=== PATIENT | female | born 1935 | race Caucasian/White ===

== ENCOUNTER 2016-11-09 09:54 | Inpatient (IN) | payer MEDICARE, OTHER ==
--- NOTE | 2016-11-09 10:36 | ED ---
Syncope HPI - General Chief Complaint: Syncope Stated Complaint: Syncope Time Seen by Provider: 11/09/16 10:08 Source: patient, RN/MD Mode of arrival: EMS Limitations: no limitations - History of Present Illness Initial Comments: Patient is an 81-year-old female with history of dementia, hypertension, hyperlipidemia presenting with syncope and collapse. Patient is unable to provide HPI and states patient is at baseline. states that around 8:30 the got up and they were in the bathroom cleaning up for the day. was assisting by the waist to wash her face. He noticed she started to become unresponsive and noticed more weight he was holding up. was able to ease patient to the ground without any trauma. Patient states she was with loss of consciousness for approximately 5 minutes. states he went to get help at the nursing station. states there is no loss of bowel or bladder. There was no confusion after loss of consciousness. and patient state there is no headache or chest pain. They deny shortness of breath abdominal pain. - Related Data Home Medications Medication Instructions Recorded Confirmed Aspirin EC [Ecotrin] 162.6 tab PO DAILY 01/07/15 11/09/16 Metoprolol Tartrate [Lopressor] 25 mg PO DAILY 01/07/15 11/09/16 Simvastatin [Zocor] 20 mg PO HS 01/07/15 11/09/16 amLODIPine [Norvasc] 7.5 mg PO DAILY 01/07/15 11/09/16 Coconut Oil Capsule 2 cap PO DAILY 11/09/16 11/09/16 [place]-3 Fatty Acids [[place]-3] 1,000 mg PO DAILY 11/09/16 11/09/16 Ubidecarenone [Co Q-10] 200 mg PO DAILY 11/09/16 11/09/16 Allergies Allergy/AdvReac Type Severity Reaction Status Date / Time No Known Allergies Allergy Verified 11/09/16 10:29 Review of Systems ROS Statement: Those systems with pertinent positive or pertinent negative responses have been documented in the HPI. Limited ROS due to dementia provides. Constitutional: No fever and no chills. HENT: No congestion, no rhinorrhea and no sore throat. Eyes: No discharge and no redness. Respiratory: No cough and no shortness of breath. Cardiovascular: No chest pain and no palpitations. Gastrointestinal: No nausea, no vomiting, no abdominal pain and no diarrhea. Genitourinary: No dysuria and no hematuria. Musculoskeletal: No back pain and no arthralgias. Skin: No pallor and no rash. Neurological: Positive syncope. No dizziness and No headaches. ROS Other: All systems not noted in ROS Statement are negative. Past Medical History Past Medical History: Hyperlipidemia, Hypertension History of Any Multi-Drug Resistant Organisms: None Reported Past Surgical History: Bladder Surgery, Hysterectomy, Orthopedic Surgery Additional Past Surgical History / Comment(s): thyroid Past Psychological History: No Psychological Hx Reported Smoking Status: Never smoker Past Alcohol Use History: None Reported Past Drug Use History: None Reported General Exam - General Exam Comments Initial Comments: Constitutional: Patient appears well-developed and well-nourished. No distress. Confused and at baseline per . Head: Normocephalic and atraumatic. Eyes: Conjunctivae and EOM are normal. Right eye exhibits no discharge. Left eye exhibits no discharge. No scleral icterus. Neck: Normal range of motion. Neck supple. Cardiovascular: Normal rate and regular rhythm. No murmur heard. Pulmonary/Chest: Effort normal and breath sounds normal. No respiratory distress. No wheezes. Abdominal: Soft. No distension. There is no tenderness. There is no rebound and no guarding. Musculoskeletal: Normal range of motion. No edema or tenderness. Neuro Exam: A&Ox1 which is baseline for patient, speech is fluent and spontaneous CN 2: no visual field deficits, PERRL CN 3, 4, 6: EOMI CN 5: facial sensation intact b/l CN 7: Eyebrow raise and smile equal b/l CN 8: hearing intact to conversation CN 9, 10: palate elevation equal, no hoarseness to voice CN 11: shoulder shrug equal b/l CN 12: tongue protrusion w/o deviation Sensory: Intact to light touch, upper and lower extremities Motor: No pronator drift, no atrophy, normal muscle tone, b/l muscle strength 5/ 5 of hand flexors, biceps, triceps, quads, hamstrings, plantar and dorsiflexion Cerebellar: finger to nose intact b/l, heel to galloway intact b/l Skin: Skin is warm and dry. Not diaphoretic. Nursing notes and vitals reviewed. Limitations: no limitations Course Vital Signs 11/09/16 11/09/16 11/09/16 10:04 11:00 13:26 Temperature 98.1 F Pulse Rate 62 85 Pulse Rate [ 80 Sitting Workers Compensation Claims Specialist] Pulse Rate [ 74 Standing Workers Compensation Claims Specialist ] Pulse Rate [ 76 Supine Workers Compensation Claims Specialist] Respiratory 17 17 16 Rate Blood Pressure 113/64 148/80 Blood Pressure 118/65 [Right Arm Supine] Blood Pressure 120/67 [Sitting] Blood Pressure 120/70 [Standing] O2 Sat by Pulse 96 94 L Oximetry - Reevaluation(s) Reevaluation #1: 11/09/16 13:17 Patient was resting comfortably in bed. Course of stay stable. Denies pain. Discussed physical exam and diagnostic tests with patient/. Questions answered and patient is agreeable to staying in the hospital. EKG Findings - EKG Comments: EKG Findings:: EKG done at 10:09 shows ventricular rate of 75 bpm. A flutter appearing. No ST or T-wave changes DC interval 176 ms. QRS duration 86 ms. QTC 428 ms. EKG from December 2014 shows sinus tach. Medical Decision Making - Medical Decision Making Patient's an 81-year-old female with past medical history dementia, hypertension , hyperlipidemia presenting with syncope. Patient was easily by the with reported unresponsiveness for 5 minutes. Patient is at her baseline mental status of A&O1. EKG was unremarkable. Blood work came back showing troponin elevation of 0.102. Discussed H&P and pertinent diagnostic tests with Dr. Garcia who agrees with plan and accepts admission of patient. He recommends getting a d-dimer and turning the troponins. - 3:00pm Reviewed d-dimer and therefore CTA was ordered which was negative for PE. - Lab Data Result diagrams: 11/09/16 10:15 11/09/16 10:15 Lab Results 11/09/16 11/09/16 11/09/16 Range/Units 10:05 10:15 10:15 WBC 8.9 (3.8-10.6) k/uL RBC 4.81 (3.80-5.40) m/uL Hgb 14.4 (11.4-16.0) gm/dL Hct 43.6 (34.0-46.0) % MCV 90.5 (80.0-100.0) fL MCH 30.0 (25.0-35.0) pg MCHC 33.1 (31.0-37.0) g/dL RDW 12.7 (11.5-15.5) % Plt Count 214 (150-450) k/uL Neutrophils % 69 % Lymphocytes % 23 % Monocytes % 6 % Eosinophils % 1 % Basophils % 0 % Neutrophils # 6.1 (1.3-7.7) k/uL Lymphocytes # 2.0 (1.0-4.8) k/uL Monocytes # 0.5 (0-1.0) k/uL Eosinophils # 0.1 (0-0.7) k/uL Basophils # 0.0 (0-0.2) k/uL PT (9.0-12.0) sec INR (<1.1) APTT (22.0-30.0) sec D-Dimer 0.84 H (<0.60) mg/L FEU Sodium 143 (137-145) mmol/L Potassium 4.3 (3.5-5.1) mmol/L Chloride 107 (98-107) mmol/L Carbon Dioxide 26 (22-30) mmol/L Anion Gap 10 mmol/L BUN 11 (7-17) mg/dL Creatinine 0.91 (0.52-1.04) mg/dL Est GFR (MDRD) Af Amer >60 (>60 ml/min/1.73 sqM) Est GFR (MDRD) Non-Af 59 (>60 ml/min/1.73 sqM) Glucose 136 H (74-99) mg/dL Calcium 8.9 (8.4-10.2) mg/dL Troponin I (0.000-0.034) ng/mL 11/09/16 11/09/16 Range/Units 10:15 10:15 WBC (3.8-10.6) k/uL RBC (3.80-5.40) m/uL Hgb (11.4-16.0) gm/dL Hct (34.0-46.0) % MCV (80.0-100.0) fL MCH (25.0-35.0) pg MCHC (31.0-37.0) g/dL RDW (11.5-15.5) % Plt Count (150-450) k/uL Neutrophils % % Lymphocytes % % Monocytes % % Eosinophils % % Basophils % % Neutrophils # (1.3-7.7) k/uL Lymphocytes # (1.0-4.8) k/uL Monocytes # (0-1.0) k/uL Eosinophils # (0-0.7) k/uL Basophils # (0-0.2) k/uL PT 10.9 (9.0-12.0) sec INR 1.1 (<1.1) APTT 22.1 (22.0-30.0) sec D-Dimer (<0.60) mg/L FEU Sodium (137-145) mmol/L Potassium (3.5-5.1) mmol/L Chloride (98-107) mmol/L Carbon Dioxide (22-30) mmol/L Anion Gap mmol/L BUN (7-17) mg/dL Creatinine (0.52-1.04) mg/dL Est GFR (MDRD) Af Amer (>60 ml/min/1.73 sqM) Est GFR (MDRD) Non-Af (>60 ml/min/1.73 sqM) Glucose (74-99) mg/dL Calcium (8.4-10.2) mg/dL Troponin I 0.102 H* (0.000-0.034) ng/mL Disposition Clinical Impression: Elevated troponin, Syncope Disposition: ADMITTED IP TO THIS HOSP Condition: Good Decision to Admit Reason: Admit from EC
[2016-11-09] MEDS ORDERED: SODIUM CHLORIDE 0.9% 1,000 ML IV STA (10:41)
[2016-11-09 11:02] LABS: Basophils % (A) 0 %; CH 29.8; Eosinophils # (A) 0.1 k/uL (0-0.7); Eosinophils % (A) 1 %; HCT 43.6 % (34.0-46.0); HDW 2.48; HGB 14.4 gm/dL (11.4-16.0); Luc # (Auto) 0.12; Luc % (Auto) 1; Lymphocytes % (A) 23 %; MCHC 33.1 g/dL (31.0-37.0); MCV 90.5 fL (80.0-100.0); Mean Platelet Volume 7.5; Monocytes # (A) 0.5 k/uL (0-1.0); Monocytes % (A) 6 %; Neutrophils # (A) 6.1 k/uL (1.3-7.7); Neutrophils % (A) 69 %; RBC 4.81 m/uL (3.80-5.40); RDW 12.7 % (11.5-15.5); WBC 8.9 k/uL (3.8-10.6); WBC (Perox) 8.96
[2016-11-09 11:13] LABS: Anion Gap 10 mmol/L; Blood Urea Nitrogen 11 mg/dL (7-17); Calcium 8.9 mg/dL (8.4-10.2); Carbon Dioxide 26 mmol/L (22-30); Chloride 107 mmol/L (98-107); Glucose 136 mg/dL (74-99); Non-African American GFR(MDRD) 59 (>60 ml/min/1.73 sqM); Potassium 4.3 mmol/L (3.5-5.1); Sodium 143 mmol/L (137-145)
[2016-11-09 11:16] LABS: INR 1.1 (<1.1); Partial Thromboplastin Time 22.1 sec (22.0-30.0); Prothrombin Time 10.9 sec (9.0-12.0)
--- NOTE | 2016-11-09 11:28 | CT ---
EXAMINATION TYPE: CT brain wo con DATE OF EXAM: 11/09/2016 11:22 AM COMPARISON: 11/22/13 HISTORY: Syncope and Altered mental status CT DLP: 978.[address] of the brain was performed. The ventricles, basal cisterns and sulci overlying the cerebral convexities demonstrate mild enlargem ent. There is no evidence for intracranial hemorrhage or sulcal effacement. There is decreased attenuation about the periventricular white matter and deep white matter of both c erebral hemispheres, compatible with chronic small vessel ischemia. Differential diagnosis does inclu de demyelination. No mass effects are seen.No midline shift. Osseous calvarium is intact. If symptoms persist consider MRI. IMPRESSION: 1. Age related atrophic and chronic small vessel ischemic change without acute intracranial process s een at this time.
--- NOTE | 2016-11-09 11:32 | XR ---
EXAMINATION TYPE: XR chest 2V DATE OF EXAM: 11/09/2016 11:27 AM COMPARISON: 01/07/15 HISTORY: Shortness of breath TECHNIQUE: Frontal and lateral views of the chest are obtained. FINDINGS: Scattered senescent parenchymal changes noted. Hyperinflation compatible with COPD. No evidence for infiltrate. No evidence for atelectasis. Heart size is mildly enlarged mild pulmonary venous engorgement. No evidence for overt failure. Mediastinal structures are stable and grossly unremarkable. No evidence for hilar prominence. Degenerative changes dorsal spine. IMPRESSION: 1. Heart size is mildly enlarged mild pulmonary venous engorgement. No evidence for overt failure.
[2016-11-09] MEDS ORDERED: RX INFO: IV CONTRAST WAS GIVEN 1 EACH MISC MISCELLANE PRN (13:31)
--- NOTE | 2016-11-09 14:55 | CT ---
EXAMINATION TYPE: CT angio chest DATE OF EXAM: 11/09/2016 2:49 PM COMPARISON: NONE HISTORY: Patient poor historian. Patient had syncopeal episode today. CT DLP: 205.7 mGycm CONTRAST: CT chest with contrast and 3D reconstruction with MIP imaging is performed with IV Contrast, patient injected with 100 mL of Omnipaque 350. Contrast-enhanced CT of the chest was performed through the course of the pulmonary arteries with arsh g and mediastinal window settings submitted. 3D reconstruction with MIP imaging was also performed. PULMONARY ARTERIES: The pulmonary arteries and their major tributaries are patent. I do not see zuleika dence for sizable filling defect to suggest pulmonary embolic process. LUNGS: Nonspecific scattered groundglass infiltrates. No evidence for atelectasis. No pulmonary nod ule or mass is detected. No pleural effusion. MEDIASTINUM: Thoracic aorta is of normal caliber . The heart is is mildly enlarged. No evidence for mediastinal mass. No mediastinal lymph nodes greater than 1cm. Mass enlargement of the left thyroid lobe measuring 5.7 cm craniocaudal dimension with substernal extension. HILAR STRUCTURES: No evidence for mass. No hilar lymph nodes greater than 1 cm. UPPER ABDOMEN: No significant abnormality is seen. IMPRESSION: 1. No evidence for Pulmonary embolism at this time.
[2016-11-09 17:51] VITALS: BMI 28.3
[2016-11-09] MEDS ORDERED: HEPARIN SODIUM,PORCINE 5,000 UNIT/ML 1 ML VIAL IV ONE (21:48)
[2016-11-09] MEDS ORDERED: HEPARIN SODIUM,PORCINE 5,000 UNIT/ML 1 ML VIAL IV PRN (21:48)
[2016-11-09] MEDS ORDERED: HEPARIN SODIUM,PORCINE/D5W PMX 25,000 UNIT in DEXTROSE/WATER 1 500ML.BAG IV SCH (22:00)
[2016-11-09 22:57] LABS: Basophils # (A) 0.1 k/uL (0-0.2); Basophils % (A) 1 %; CH 30.1; CHCM 33.7; Eosinophils # (A) 0.1 k/uL (0-0.7); Eosinophils % (A) 1 %; HCT 42.1 % (34.0-46.0); HDW 2.49; HGB 13.6 gm/dL (11.4-16.0); Luc # (Auto) 0.11; Luc % (Auto) 2; Lymphocytes % (A) 29 %; MCH 28.9 pg (25.0-35.0); MCHC 32.2 g/dL (31.0-37.0); MCV 89.6 fL (80.0-100.0); Mean Platelet Volume 7.8; Monocytes # (A) 0.5 k/uL (0-1.0); Monocytes % (A) 7 %; Neutrophils # (A) 4.1 k/uL (1.3-7.7); Neutrophils % (A) 60 %; RBC 4.69 m/uL (3.80-5.40); RDW 12.6 % (11.5-15.5); WBC 6.9 k/uL (3.8-10.6); WBC (Perox) 6.83
[2016-11-09 23:04] LABS: INR 1.1 (<1.1); Prothrombin Time 10.8 sec (9.0-12.0)
[2016-11-09] MEDS: ATORVASTATIN 10 MG TAB PO SCH (23:24)
[2016-11-09] MEDS: METOPROLOL TARTRATE 25 MG TAB PO SCH (23:24)
[2016-11-09] MEDS: amLODIPine 2.5 MG TAB PO SCH (23:33)
--- NOTE | 2016-11-09 23:44 | P.HPIM ---
History of Present Illness H&P Date: 11/09/16 Chief Complaint: Syncope, arrhythmia, non-ST CT, worsening mental status, dementia, hyperten 81-year-old female [address] Brown patient with past medical history of hypertension hyperlipidemia and advanced dementia who apparently has been seen Dr. Wang lately for worsening dementia and worsening neuropathy with abnormal gait imbalance. Patient apparently scheduled to have CT of the brain with possible MRI along with EMG and EEG her CAT scan was scheduled for tomorrow. According to the was trying to assist his to wash up in the morning around 8:30 she had a complete syncopal episode lasted for several minutes was out completely ended up on the floor unresponsive he called 911 with instruction of the nurse and [facility] where he lives patient ended up being transferred to the emergency department at [facility] where was seen and evaluated CT of the brain came back with small vessel disease with no major abnormality no bleed. D-dimer was elevated CTA was negative for PE. Patient had slightly elevated troponin at 0.012 with no significant change on EKG and was diagnosed as non-ST CT possibly cause arrhythmia and hypotension which might have caused her syncopal episode. Patient will be heparinized and admitted to the hospital with see cardiology echocardiogram carotid ultrasound and neuro consultation will be done. Review of Systems Constitutional: Reports anorexia, Reports chronic pain, Reports fatigue, Reports lethargy, Reports malaise, Reports weakness, Reports weight gain, Denies as per HPI, Denies chills, Denies chronic headaches, Denies daytime sleepiness, Denies fever, Denies night sweats, Denies poor appetite, Denies sweats, Denies weight loss Eyes: bilateral as per HPI Ears: bilateral: decreased hearing Ears, nose, mouth and throat: Reports nasal congestion, Reports sinus pressure, Denies as per HPI, Denies ant. neck pain, Denies bleeding gums, Denies dental pain, Denies dysphagia, Denies epistaxis, Denies headache, Denies hoarseness, Denies mouth pain, Denies nasal discharge, Denies neck fullness/pressure, Denies neck lump, Denies nose pain, Denies odynophagia, Denies post-nasal drip, Denies sinus pain, Denies swelling in mouth, Denies swelling in throat, Denies sore throat, Denies vertigo, Denies voice changes Cardiovascular: Reports decreased exercise tolerance, Reports dyspnea on exertion, Reports edema, Reports high blood pressure, Reports irregular heart beat, Reports lightheadedness, Reports palpitations, Reports paroxysmal nocturnal dyspnea, Reports rapid heart beat, Reports shortness of breath, Reports syncope, Denies as per HPI, Denies chest pain, Denies claudication, Denies leg edema, Denies orthopnea, Denies phlebitis Respiratory: Reports congestion, Reports dyspnea, Denies as per HPI, Denies cough, Denies cough with sputum, Denies excessive sputum, Denies hemoptysis, Denies home oxygen, Denies pain, Denies pain on inspiration, Denies pleurisy, Denies respiratory infections, Denies sleep apnea, Denies snoring, Denies wheezing Gastrointestinal: Reports abdominal pain, Reports bloating, Reports dyspepsia, Reports indigestion, Reports nausea, Denies as per HPI, Denies belching, Denies BRBPR, Denies change in bowel habits, Denies coffee ground emesis, Denies constipation, Denies diarrhea, Denies early satiety, Denies excessive gas, Denies heartburn, Denies hematemesis, Denies hematochezia, Denies jaundice, Denies lactose intolerance, Denies loss of appetite, Denies melena, Denies vomiting Genitourinary: Reports incomplete emptying, Reports nocturia, Reports urge incontinence, Reports urinary frequency, Denies as per HPI, Denies abnormal vaginal bleeding, Denies decreased libido, Denies difficulty conceiving, Denies difficulty voiding, Denies dysmenorrhea, Denies dyspareunia, Denies dysuria, Denies flank pain, Denies genital sores, Denies hematuria, Denies hot flashes, Denies kidney stones, Denies menorrhagia, Denies mixed incontinence, Denies pelvic pain, Denies post void dribbling, Denies , Denies prolapse symptoms, Denies stress incontinence, Denies urgency, Denies vaginal discharge, Denies vaginal dryness, Denies vaginal itching, Denies vaginal odor Musculoskeletal: Reports arm numbness/tingling, Reports leg numbness/tingling, Reports myalgias, Reports neck pain, Reports neck stiffness, Denies as per HPI, Denies atrophy, Denies fractures, Denies frequent falls, Denies gait dysfunction , Denies hot joints, Denies limitation of motion, Denies loss of height, Denies low back pain, Denies morning stiffness, Denies muscle cramps, Denies muscle weakness, Denies prior amputations, Denies redness of joints, Denies shooting arm pain, Denies shooting leg pain Musculoskeletal: bilateral: ankle pain Integumentary: Reports dryness, Reports rash, Denies as per HPI, Denies acne, Denies boils, Denies brittle nails, Denies change in hair/nails, Denies color changes, Denies darkening of skin, Denies depigmentation, Denies foot/leg ulcers , Denies growths, Denies hirsutism, Denies lesions, Denies onychomycosis, Denies pruritus, Denies sores, Denies striae, Denies unusual bruising, Denies wounds Neurological: Reports balance difficulties, Reports change in mentation, Reports confusion, Reports convulsions, Reports lack of coordination, Reports memory loss, Reports motor disturbance, Reports numbness, Reports paresthesias, Reports syncope, Reports tingling, Reports tremors, Reports weakness, Denies as per HPI, Denies aphasia, Denies ataxia, Denies burning pain, Denies change in smell/taste, Denies change in speech, Denies double vision, Denies gait dysfunction, Denies head injury, Denies headaches, Denies hearing difficulties, Denies loss of vision, Denies migraines, Denies paralysis, Denies seizures, Denies sensory deficit, Denies spasticity, Denies tic, Denies transient paralysis, Denies vertigo, Denies visual changes Psychiatric: Reports anxiety, Reports confusion, Reports depression, Reports insomnia, Reports irritability, Reports memory loss, Reports sadness/tearfulness , Reports sleep disturbances, Denies as per HPI, Denies anhedonia, Denies anxiety attacks, Denies change in appetite, Denies change in libido, Denies change in sleep habits, Denies difficulty concentrating, Denies disorientation, Denies hallucinations, Denies hopelessness, Denies hypersomnia, Denies mood swings, Denies paranoia, Denies suicidal ideation Endocrine: Reports fatigue, Reports high blood sugars, Reports nocturia, Reports polydipsia, Reports polyuria, Denies as per HPI, Denies cold intolerance , Denies deepening of the voice, Denies excessive sweating, Denies excessive thirst, Denies flushing, Denies heat intolerance, Denies increase in ring/shoe/ hat size, Denies low blood sugars, Denies palpitations, Denies polyphagia, Denies proptosis, Denies recent glucocorticoid use, Denies thyroid mass, Denies weight change Hematologic/Lymphatic: Reports easy bruising, Denies as per HPI, Denies easy bleeding, Denies lymphadenopathy, Denies lymphedema, Denies thrombophilia Allergic/Immunologic: Denies as per HPI, Denies allergic rhinitis, Denies anaphylaxis, Denies angioedema, Denies gluten intolerance, Denies persistent infections, Denies seasonal allergies, Denies urticaria, Denies wheezing Past Medical History Past Medical History: Hyperlipidemia, Hypertension History of Any Multi-Drug Resistant Organisms: None Reported Past Surgical History: Bladder Surgery, Hysterectomy, Orthopedic Surgery Additional Past Surgical History / Comment(s): thyroid Past Psychological History: No Psychological Hx Reported Smoking Status: Never smoker Past Alcohol Use History: None Reported Past Drug Use History: None Reported Medications and Allergies Home Medications Medication Instructions Recorded Confirmed Type Aspirin EC [Ecotrin] 162.6 tab PO DAILY 01/07/15 11/09/16 History Metoprolol Tartrate [Lopressor] 25 mg PO DAILY 01/07/15 11/09/16 History Simvastatin [Zocor] 20 mg PO HS 01/07/15 11/09/16 History amLODIPine [Norvasc] 7.5 mg PO DAILY 01/07/15 11/09/16 History Coconut Oil Capsule 2 cap PO DAILY 11/09/16 11/09/16 History [place]-3 Fatty Acids [[place]-3] 1,000 mg PO DAILY 11/09/16 11/09/16 History Ubidecarenone [Co Q-10] 200 mg PO DAILY 11/09/16 11/09/16 History Allergies Allergy/AdvReac Type Severity Reaction Status Date / Time No Known Allergies Allergy Verified 11/09/16 10:29 Physical Exam Vitals: Vital Signs Temp Pulse Pulse Resp BP BP Pulse Ox 11/09/16 18:59 141/96 11/09/16 18:40 93 18 178/95 94 L 11/09/16 17:44 97 F L 93 18 178/95 94 L 11/09/16 15:41 97.6 F 80 18 144/80 95 11/09/16 13:26 85 16 148/80 94 L Intake and Output 11/09/16 11/09/16 11/09/16 06:59 14:59 22:59 Intake Total 100 Balance 100 Intake: Oral 100 Other: Weight 77.111 kg Patient Weight 11/10/16 06:59 Weight 77.111 kg - Constitutional General appearance: no average body habitus, cooperative, disheveled, no mild distress, no morbidly obese, no acute distress, no obese, no severe distress, no thin - EENT Eyes: no abnormal pupil, no anicteric sclerae, no disc margins sharp, no edentulous, no EOMI, no PERRLA, no fundus normal, no photophobia, no dentition normal, no poor dentition, no ptosis, no scleral icterus, normal appearance ENT: hard of hearing, no hearing grossly normal, no NA/AT, normal oropharynx, no other, no pharyngeal erythema, no thrush, no tonsillar exudates, no tonsillar swelling Ears: bilateral: normal, erythema - Neck Neck: no lymphadenopathy, normal ROM, no other, no rigidity, no stridor, no thyromegaly Carotids: bilateral: upstroke normal Thyroid: bilateral: normal size - Respiratory Respiratory: bilateral: CTA, diminished - Cardiovascular Rhythm: regular Heart sounds: normal: S1, S2 Abnormal Heart Sounds: systolic murmur, S3 Gallop - Gastrointestinal General gastrointestinal: no absent bowel sounds, decreased bowel sounds, distended, no hepatomegaly, no hyperactive bowel sounds, normal bowel sounds, no organomegaly, no rigid, no scaphoid, soft, no splenomegaly, no tenderness, no umbilical hernia, no ventral hernia - Integumentary Integumentary: no calor, no cellulitis, no cyanotic, no decreased turgor, no flushed, no jaundiced, normal, no normal turgor, pale, no rash, no ulcer - Neurologic Neurologic: CNII-XII intact - Musculoskeletal Musculoskeletal: no gait normal, generalized weakness, no strength equal bilaterally, no right sided weakness, no left sided weakness - Psychiatric Psychiatric: no A&O x's 3, no appropriate affect, no intact judgment & insight Results CBC & Chem 7: 11/09/16 22:34 11/09/16 10:15 Labs: Abnormal Lab Results - Last 24 Hours (Table) 11/09/16 Range/Units 16:16 Troponin I 0.094 H* (0.000-0.034) ng/mL Thrombosis Risk Factor Assmnt - DVT/VTE Prophylaxis DVT/VTE Prophylaxis: Pharmacologic Prophylaxis ordered, Mechanical Prophylaxis ordered - Choose All That Apply Any of the Below Risk Factors Present?: Yes Each Risk Factor Represents 3 Points: Age 75 years or older Other congenital or acquired thrombophilia - If yes, enter type in comment: Yes Thrombosis Risk Factor Assessment Total Risk Factor Score: 3 Thrombosis Risk Factor Assessment Level: Moderate Risk Assessment and Plan Plan: 1 acute syncopal episode not a clear etiology: Most likely from hypotension, arrhythmia and possible CT. Patient will be hospitalized will be watching seen by cardiology and urology continue testing echo and carotid to be done will watch patient on heart monitor. 2 possible non-ST CT with elevated troponin: Patient will have CK with troponin 3 echocardiogram cardiology consultation. 3 arrhythmia not clear etiology this is possibly nonsustained V. tach will be watching patient on heart monitor and see if patient has any further episode of tachybradycardia syndrome as well might require pacemaker. Patient might require longer-term heart monitor including event monitor. 4 hypertension: Has been doing well on metoprolol and Norvasc. 5 hyperlipidemia: Has been on simvastatin continue medication. 6 advanced dementia: Has been seen Dr. Wang patient was scheduled to have a CAT scan and other testing with Dr. Wang which can be continued as an outpatient. 7 DVT prophylaxis: Patient will be on heparin subcutaneous. 8 GI prophylaxis: Patient will be on Pepcid 20 mg daily. CODE STATUS: Full code. Expectation from this admission: Patient in the hospital for 1-2 nights.
[2016-11-09 23:58] LABS: Appearance,Urine Clear (Clear); Bilirubin,Urine Negative (Negative); Glucose,Urine (UA) Negative (Negative); Ketones,Urine 1+ (Negative); Leukocyte Esterase,Urine Small (Negative); Mucus,Urine Rare /hpf; Nitrite,Urine Negative (Negative); Particle Count 1798; Protein,Urine Trace (Negative); RBC,Urine 3 /hpf (0-5); Squamous Epithelial Cell,Urine 1 /hpf (0-4); UA Billing (MACRO vs. MICRO) MICRO; Urobilinogen,Urine <2.0 mg/dL (<2.0); WBC,Urine 6 /hpf (0-5)
[2016-11-10 00:04] LABS: Specific Gravity,Urine 1.046 (1.001-1.035)
[2016-11-10 06:35] LABS: Basophils % (A) 1 %; CH 29.7; CHCM 32.9; Eosinophils # (A) 0.2 k/uL (0-0.7); Eosinophils % (A) 3 %; HCT 41.9 % (34.0-46.0); HGB 13.6 gm/dL (11.4-16.0); Luc # (Auto) 0.13; Luc % (Auto) 2; Lymphocytes # (A) 2.2 k/uL (1.0-4.8); Lymphocytes % (A) 37 %; MCH 29.4 pg (25.0-35.0); MCHC 32.4 g/dL (31.0-37.0); MCV 90.7 fL (80.0-100.0); Mean Platelet Volume 7.1; Monocytes # (A) 0.4 k/uL (0-1.0); Monocytes % (A) 7 %; Neutrophils # (A) 3.1 k/uL (1.3-7.7); Neutrophils % (A) 51 %; RBC 4.62 m/uL (3.80-5.40); RDW 12.6 % (11.5-15.5); WBC (Perox) 5.89
[2016-11-10] MEDS ORDERED: NON-FORMULARY DRUG (Omega-3 Fatty Acids [Omega-3] 1,000 MG) PO SCH (09:00)
[2016-11-10] MEDS: METOPROLOL TARTRATE 25 MG TAB PO SCH (09:20)
[2016-11-10] MEDS: ASPIRIN 81 MG CHEW PO SCH (09:25)
[2016-11-10] MEDS: amLODIPine 2.5 MG TAB PO SCH (09:25)
--- NOTE | 2016-11-10 10:01 | CONS ---
DATE OF CONSULTATION: Dede Ritter is an 81-year-old female who got out of bed and went to the bathroom and collapsed. Her went to help her initially. He said that she was limp, her eye were rolled up and she was unconscious for several minutes. He states that normally when she has had these episodes she recovers fairly quickly, but this time it took a while for her to recover. She is a poor historian, but she denies any chest discomfort or palpitations prior to that. Past history includes hypertension, dyslipidemia, advanced dementia and worsening neuropathy. FURTHER WORK-UP: The CT of the brain did not show any significant major abnormalities. No bleeding. No evidence for pulmonary embolism on chest CT. Troponins were mildly elevated. 12-lead ECG shows sinus rhythm with baseline artifact, but no definite ST segment abnormalities. Review of systems is not available. She is a poor historian, but she denied any chest discomfort or palpitations prior to the episode. PAST SURGERIES: Bladder surgery, hysterectomy, orthopedic surgery. SOCIAL HISTORY: Never smoker. Medications at home include aspirin, metoprolol tartrate 25 mg once daily in the morning, simvastatin, amlodipine, coconut oil, omega-3 and coenzyme Q10. ALLERGIES: No known drug allergies. On examination, blood pressure 131/74 mmHg, pulse rate is in the 70s. She is afebrile, 98.5 degrees Fahrenheit. Head and neck examination is normal. There is no JVD. No thyromegaly. No carotid bruits. Heart sounds S1, S2 normal. No murmurs or gallops. No rub. Abdomen is soft, nontender. Extremities are warm. No edema. IMPRESSION: 1. Episode of loss of consciousness. The period of unconsciousness may have been more prolonged than usual. 2. Borderline troponins of unclear significance. 3. Hypertension. 4. Dyslipidemia. 5. Progressive dementia being worked up by Neurology at this time. SUGGEST: I would hold beta blockers, check TSH, monitor on telemetry and look for any bradyarrhythmias and I would suggest checking orthostatics and then a tilt table test if she is not orthostatic. This could have been an orthostatic episode, which is with prolonged hypotension resulting in a longer period of unconsciousness or bradyarrhythmia. Troponins may have been as a result of prolonged hypoperfusion. Another consideration is implantation of Reveal monitor if we do not have a clear-cut answer.
[2016-11-10] MEDS ORDERED: SODIUM CHLORIDE 0.9% 500 ML IV ONE (14:18)
--- NOTE | 2016-11-10 15:14 | P.PN ---
Subjective 81-year-old female [address] Brown patient with past medical history of hypertension hyperlipidemia and advanced dementia who apparently has been seen Dr. Wang lately for worsening dementia and worsening neuropathy with abnormal gait imbalance. Patient apparently scheduled to have CT of the brain with possible MRI along with EMG and EEG her CAT scan was scheduled for tomorrow. According to the was trying to assist his to wash up in the morning around 8:30 she had a complete syncopal episode lasted for several minutes was out completely ended up on the floor unresponsive he called 911 with instruction of the nurse and [facility] where he lives patient ended up being transferred to the emergency department at [facility] where was seen and evaluated CT of the brain came back with small vessel disease with no major abnormality no bleed. D-dimer was elevated CTA was negative for PE. Patient had slightly elevated troponin at 0.012 with no significant change on EKG and was diagnosed as non-ST NJ possibly cause arrhythmia and hypotension which might have caused her syncopal episode. Patient will be heparinized and admitted to the hospital with see cardiology echocardiogram carotid ultrasound and neuro consultation will be done. 11/10: Patient has been seen by cardiology with plan for tilt table test. Neurology is on consult. PT and OT consults requested. Objective - Vital Signs Vital signs: Vital Signs Temp 98.2 F 11/10/16 09:30 Pulse 84 11/10/16 09:30 Resp 18 11/10/16 09:30 BP 133/83 11/10/16 09:30 Pulse Ox 93 L 11/10/16 09:30 Intake & Output 11/09/16 11/10/16 11/10/16 18:59 06:59 18:59 Intake Total 100 374.433 Output Total 800 Balance 100 -425.567 Weight 77.111 kg 78.4 kg Intake: Intake, IV Titration 134.433 Amount Heparin Sodium,Porcine/ 134.433 D5w Pmx 25,000 unit In Dextrose/Water 1 500ml. bag @ 12 UNITS/KG/HR 18.5 mls/hr IV .Q24H [facility] Rx#: [id number] Oral 100 240 Output: Urine 800 Other: Voiding Method Toilet Toilet # Voids 200 - Exam General appearance: no average body habitus, cooperative, disheveled, no mild distress, no morbidly obese, no acute distress, no obese, no severe distress, no thin - EENT Eyes: no abnormal pupil, no anicteric sclerae, no disc margins sharp, no edentulous, no EOMI, no PERRLA, no fundus normal, no photophobia, no dentition normal, no poor dentition, no ptosis, no scleral icterus, normal appearance ENT: hard of hearing, no hearing grossly normal, no NA/AT, normal oropharynx, no other, no pharyngeal erythema, no thrush, no tonsillar exudates, no tonsillar swelling Ears: bilateral: normal, erythema - Neck Neck: no lymphadenopathy, normal ROM, no other, no rigidity, no stridor, no thyromegaly Carotids: bilateral: upstroke normal Thyroid: bilateral: normal size - Respiratory Respiratory: bilateral: CTA, diminished - Cardiovascular Rhythm: regular Heart sounds: normal: S1, S2 Abnormal Heart Sounds: systolic murmur, S3 Gallop - Gastrointestinal General gastrointestinal: no absent bowel sounds, decreased bowel sounds, distended, no hepatomegaly, no hyperactive bowel sounds, normal bowel sounds, no organomegaly, no rigid, no scaphoid, soft, no splenomegaly, no tenderness, no umbilical hernia, no ventral hernia - Integumentary Integumentary: no calor, no cellulitis, no cyanotic, no decreased turgor, no flushed, no jaundiced, normal, no normal turgor, pale, no rash, no ulcer - Neurologic Neurologic: CNII-XII intact - Musculoskeletal Musculoskeletal: no gait normal, generalized weakness, no strength equal bilaterally, no right sided weakness, no left sided weakness - Psychiatric Psychiatric: no A&O x's 3, no appropriate affect, no intact judgment & insight - Labs CBC & Chem 7: 11/10/16 06:02 11/09/16 10:15 Labs: Abnormal Lab Results - Last 24 Hours (Table) 11/09/16 11/09/16 11/09/16 Range/Units 16:16 22:34 23:40 APTT (22.0-30.0) sec Troponin I 0.094 H* 0.078 H* (0.000-0.034) ng/mL Ur Specific [place] 1.046 H (1.001-1.035) Urine Protein Trace H (Negative) Urine Ketones 1+ H (Negative) Ur Leukocyte Esterase Small H (Negative) Urine WBC 6 H (0-5) /hpf Urine Mucus Rare H (None) /hpf 11/10/16 Range/Units 06:02 APTT 40.1 H (22.0-30.0) sec Troponin I (0.000-0.034) ng/mL Ur Specific [place] (1.001-1.035) Urine Protein (Negative) Urine Ketones (Negative) Ur Leukocyte Esterase (Negative) Urine WBC (0-5) /hpf Urine Mucus (None) /hpf Assessment and Plan Plan: 1 acute syncopal episode not a clear etiology: Most likely from hypotension, arrhythmia and possible NJ. Patient will be hospitalized will be watching seen by cardiology and urology continue testing echo and carotid to be done will watch patient on heart monitor. Tilt table test scheduled. 2 possible non-ST NJ with elevated troponin: Patient will have CK with troponin 3 echocardiogram cardiology consultation. 3 arrhythmia not clear etiology this is possibly nonsustained V. tach will be watching patient on heart monitor and see if patient has any further episode of tachybradycardia syndrome as well might require pacemaker. Patient might require longer-term heart monitor including event monitor. 4 hypertension: Has been doing well on metoprolol and Norvasc. 5 hyperlipidemia: Has been on simvastatin continue medication. 6 advanced dementia: Has been seen Dr. Wang patient was scheduled to have a CAT scan and other testing with Dr. Wang which can be continued as an outpatient. 7 DVT prophylaxis: Patient will be on heparin subcutaneous. 8 GI prophylaxis: Patient will be on Pepcid 20 mg daily. CODE STATUS: Full code. [place] [facility] [place] [facility] [place] and plan of care have been directed as dictated by the signing physician. Karen Saravia nurse practitioner acting as scribe for signing physician. Time with Patient: Greater than 30
[2016-11-10] MEDS: ATORVASTATIN 10 MG TAB PO SCH (20:19)
[2016-11-10] MEDS: SULFAMETHOX-TMP 800-160MG 1 EACH TAB PO SCH (20:25)
[2016-11-10] MEDS ORDERED: DONEPEZIL 5 MG TAB PO SCH (21:00)
--- NOTE | 2016-11-10 21:05 | CE ---
DATE OF SERVICE: Dede Ritter underwent a tilt table test. She was admitted with syncope. Baseline blood pressure 139/82 millimeters mercury and 144/79 mm mercury, heart in the 70s. She was stood upright at an angle of 70 degrees per protocol. There was no significant change in her heart ( ) there was very gradual progressive drop in her blood pressure. The lowest blood pressure was 111/73 mm mercury, heart rate 114 beats a minute, when she was laid supine, blood pressure went back to the baseline. IMPRESSION: Very mild dysautonomic response to upright tilting. (Very mild and dysautonomic response to upright tilting).
[2016-11-11 06:35] LABS: Basophils % (A) 1 %; CH 29.7; Eosinophils # (A) 0.2 k/uL (0-0.7); Eosinophils % (A) 4 %; HCT 47.3 % (34.0-46.0); HDW 2.56; HGB 15.3 gm/dL (11.4-16.0); Luc # (Auto) 0.11; Luc % (Auto) 2; Lymphocytes # (A) 2.5 k/uL (1.0-4.8); Lymphocytes % (A) 40 %; MCH 29.2 pg (25.0-35.0); MCHC 32.4 g/dL (31.0-37.0); MCV 90.3 fL (80.0-100.0); Monocytes # (A) 0.4 k/uL (0-1.0); Monocytes % (A) 7 %; Neutrophils # (A) 2.9 k/uL (1.3-7.7); Neutrophils % (A) 47 %; RBC 5.24 m/uL (3.80-5.40); RDW 12.5 % (11.5-15.5); WBC 6.1 k/uL (3.8-10.6); WBC (Perox) 6.39
--- NOTE | 2016-11-11 08:31 | CONS ---
DATE OF CONSULTATION: 11/10/2016 CHIEF COMPLAINT: Recurrent syncope. HISTORY OF PRESENT ILLNESS: Mrs. Ritter is a pleasant 81-year-old female who is being evaluated by the neurology service per the request of Dr. Garcia for recurrent syncopal spells. The patient was brought into [facility] Emergency Room after she suffered a syncopal spell. The patient is a very poor historian and appears to have dementia. She had a witnessed syncope that lasted several minutes with no seizure-like activity described. The patient resides at [facility] and the nursing staff witnessed the syncope. The patient does not recall if she felt any dizziness or lightheadedness prior to the spell. She states that she has had previous episodes of syncope. At the time of my evaluation, she denies any dizziness or headaches. A CT scan of the brain was done, which showed generalized atrophy and small vessel ischemic changes. Her D-dimers were elevated so a CT scan of the chest was done with an angiogram, which showed no evidence of any pulmonary embolism. Her CBC was normal. Her cardiac enzymes showed mildly elevated troponin at 0.094. Her urinalysis showed 6 WBCs with small leukocyte esterase. The patient is disoriented at the time of my evaluation and she informs me that her father told her to come to the emergency room when she passed out, although her father had several years ago. PAST MEDICAL HISTORY: Hypertension, dyslipidemia, dementia, history of orthopedic surgeries, hysterectomy, bladder surgery. SOCIAL HISTORY: She denies any tobacco, alcohol or drug use. FAMILY HISTORY: Noncontributory. HOME MEDICATIONS: Reviewed in the chart. ALLERGIES: No known drug allergies. REVIEW OF SYSTEMS: CONSTITUTIONAL: Positive for fatigue. EYES: Positive for chronic diminished vision. ENT: Positive for chronic diminished hearing. CARDIOVASCULAR: Positive for hypertension and arrhythmias. RESPIRATORY: Positive for occasional shortness of breath. NEUROLOGICAL: As mentioned above. GASTROINTESTINAL: Positive for occasional heartburn. GENITOURINARY: Positive for urinary urgency. PSYCHIATRIC: Positive for memory loss. MUSCULOSKELETAL: Positive for frequent joint pain. DERMATOLOGICAL: Negative. ENDOCRINE: Negative. PHYSICAL EXAM: Vital signs show a temperature of 98.2, pulse 84, respirations 18, blood pressure 128/77. GENERAL APPEARANCE: The patient is a well-developed, elderly female who appears to be in no acute distress. HEENT: Normocephalic, atraumatic, no facial asymmetry is seen. Neck is supple with no masses felt. CARDIOVASCULAR: Regular rate and rhythm. ABDOMEN: Nontender, nondistended. Extremities showed trace edema with no clubbing seen. NEUROLOGIC EXAM: The patient is awake and oriented to person only. Speech and language are normal. No lateralizing weakness is seen. Sensory exam was normal to light touch in all 4 extremities. Postural tremors are present in bilateral upper extremities. No facial asymmetry is seen on cranial nerve testing. IMPRESSION: 1. Recurrent syncopal spells. 2. Advance Alzheimer's dementia. 3. Altered mental status. 4. Small vessel ischemic disease. 5. Acute urinary tract infection. 6. Acute infectious encephalopathy. RECOMMENDATIONS: The patient's exact baseline is unknown, but she does appear to have advanced Alzheimer's type dementia, which is likely being worsened by an acute although mild urinary tract infection. I did review her CT scan of the brain, which showed no acute abnormalities. I will order an EEG, thyroid panel and serum vitamin B12 level. I will treat her urinary tract infection with Bactrim as I do believe this is worsening her symptoms. The patient should be on disease modifying therapy and I will start her on Aricept 5 mg q.h.s. and this dose should be increased to 10 mg q.h.s. in one month. Regarding her syncope, an EEG will be ordered. I do recommend a cardiac workup as well especially given her previous history of arrhythmia and her current slightly elevated cardiac enzymes. Continue neuro checks. I will continue to follow with you. Further recommendations to follow. Thank you for allowing me to participate in the care of your patient. If you have any questions, please feel free to contact me.
[2016-11-11] MEDS: ASPIRIN 81 MG CHEW PO SCH (09:12)
[2016-11-11] MEDS: amLODIPine 2.5 MG TAB PO SCH (09:12)
[2016-11-11] MEDS: SULFAMETHOX-TMP 800-160MG 1 EACH TAB PO SCH (09:12)
[2016-11-11 09:55] VITALS: RESP 18; TEMP 98.1
[2016-11-11 13:35] VITALS: BP 138/78; PULSE 74
--- NOTE | 2016-11-11 14:19 | P.DS ---
Providers Date of admission: 11/09/16 13:05 Expected date of discharge: 11/11/16 Attending physician: Jostin Garcia Consults: 11/09/16 21:54 Consult Physician Routine Consulting Provider: Marcella Ragland Consult Reason/Comments: syncope Do you want consulting provider notified?: Yes, Notify in am 11/09/16 21:55 Consult Physician Routine Consulting Provider: Husam Torres Consult Reason/Comments: elevated troponin Do you want consulting provider notified?: Yes, Notify in am Primary care physician: Buck Brown [facility] Course: 81-year-old female [address] Brown patient with past medical history of hypertension hyperlipidemia and advanced dementia who apparently has been seen Dr. Wang lately for worsening dementia and worsening neuropathy with abnormal gait imbalance. Patient apparently scheduled to have CT of the brain with possible MRI along with EMG and EEG her CAT scan was scheduled for tomorrow. According to the was trying to assist his to wash up in the morning around 8:30 she had a complete syncopal episode lasted for several minutes was out completely ended up on the floor unresponsive he called 911 with instruction of the nurse and [facility] where he lives patient ended up being transferred to the emergency department at [facility] where was seen and evaluated CT of the brain came back with small vessel disease with no major abnormality no bleed. D-dimer was elevated CTA was negative for PE. Patient had slightly elevated troponin at 0.012 with no significant change on EKG and was diagnosed as non-ST [place] possibly cause arrhythmia and hypotension which might have caused her syncopal episode. Patient will be heparinized and admitted to the hospital with see cardiology echocardiogram carotid ultrasound and neuro consultation will be done. 11/10: Patient has been seen by cardiology with plan for tilt table test. Neurology is on consult. PT and OT consults requested. 11/11: Patient has been seen by neurology with plan for EEG, thyroid panel and vitamin B12 level. He started Bactrim for urinary tract infection and started Aricept at 5 mg at bedtime which is to be increased to 10 mg in 1 month. Tilt table test revealed very mild distal autonomic response to upright tilting. TSH 0.353, free T4 1 0.30. B12 404. Urine culture is finalized with normal lópez. Patient will be discharged home today in stable condition. Discharge diagnoses: 1 acute syncopal episode not a clear etiology most likely vasovagal with component of metabolic encephalopathy due to urinary tract infection 2 elevated troponins. Cardiology has ruled out acute coronary syndrome 3 arrhythmia not clear etiology this is possibly nonsustained V. tach will be watching patient on heart monitor and see if patient has any further episode of tachybradycardia syndrome as well might require pacemaker. Patient might require longer-term heart monitor including event monitor. 4 hypertension: 5 hyperlipidemia: 6 advanced Alzheimer's dementia Discharge plan: [facility] [place] Impression and plan of care have been directed as dictated by the signing physician. Karen Saravia nurse practitioner acting as scribe for signing physician. Patient Condition at Discharge: Good Plan - Discharge Summary New Discharge Prescriptions: Citalopram Hydrobromide [CeleXA] 10 mg PO DAILY #30 tab Donepezil [Aricept] 5 mg PO HS #30 tab Sulfamethox-Tmp 800-160Mg [Bactrim DS 800-160 mg] 1 each PO BID #12 tab Discharge Medication List Aspirin EC [Ecotrin] 162.6 tab PO DAILY 01/07/15 [History] Simvastatin [Zocor] 20 mg PO HS 01/07/15 [History] Coconut Oil Capsule 2 cap PO DAILY 11/09/16 [History] Morgan-3 Fatty Acids [Morgan-3] 1,000 mg PO DAILY 11/09/16 [History] Ubidecarenone [Co Q-10] 200 mg PO DAILY 11/09/16 [History] Citalopram Hydrobromide [CeleXA] 10 mg PO DAILY #30 tab 11/11/16 [Rx] Donepezil [Aricept] 5 mg PO HS #30 tab 11/11/16 [Rx] Metoprolol Tartrate [Lopressor] 25 mg PO HS #0 11/11/16 [Rx] Sulfamethox-Tmp 800-160Mg [Bactrim DS 800-160 mg] 1 each PO BID #12 tab [Rx] amLODIPine [Norvasc] 5 mg PO DAILY #0 11/11/16 [Rx] Follow up Appointment(s)/Referral(s): Buck Brown MD [Primary Care Provider] - 1 Week Marcella Ragland MD [STAFF PHYSICIAN] - 1 Week Discharge Disposition: HOME SELF-CARE
== END 2016-11-11 15:01 | disposition home health service (06) | DRG 312 ==
LOC: EC 09:54 → 6SEL 13:05
PROVIDERS: ADMIT Internal Medicine Geriatric Medicine; ATTEND Internal Medicine Geriatric Medicine
PROC: 4A03XB1 Measurement of Arterial Pressure, Peripheral, External Approach (ICD-10-PCS; 2016-11-10)
PROC: 4A02XFZ Measurement of Cardiac Rhythm, External Approach (ICD-10-PCS; principal; 2016-11-10 10:55)
DX: R55 Syncope and collapse (principal); G93.41 Metabolic encephalopathy; I47.2 Ventricular tachycardia; N39.0 Urinary tract infection, site not specified; I95.9 Hypotension, unspecified; G30.9 Alzheimer's disease, unspecified; G62.9 Polyneuropathy, unspecified; I73.9 Peripheral vascular disease, unspecified; F02.80 Dementia in other diseases classified elsewhere, unspecified severity, without behavioral disturbance, psychotic disturbance, mood disturbance, and anxiety; E78.5 Hyperlipidemia, unspecified; I10 Essential (primary) hypertension; G89.29 Other chronic pain; Z79.82 Long term (current) use of aspirin; Z79.899 Other long term (current) drug therapy
CPT/HCPCS: 36415; 70450; 71020; 71275; 80048; 81001; 82607; 84439; 84443; 84484; 85025; 85379; 85610; 85730; 87086; 93005; 93660; 96360; 99285

== ENCOUNTER 2016-11-12 15:35 | Emergency (ER) | payer MEDICARE, OTHER ==
--- NOTE | 2016-11-12 15:49 | ED ---
General Adult HPI - General Stated complaint: Hypertension Time Seen by Provider: 11/12/16 15:40 Source: RN notes reviewed - History of Present Illness Initial comments: This is an 81-year-old female presents emergency department after having had a syncopal episode. Patient states she was just discharged from the hospital after having had a syncopal episode. Patient states that occurred a few days ago. Patient states she's not sure about all her medical history her will have it when he arrives but he has yet to arrive. Patient states prior to passing out she felt a little bit lightheaded and then she passed out and remembers waking up. Patient states other than that she has no symptoms before or after the episode and she states this is exactly what happened last time she had this episode. Patient denies any recent fever chills or cough. Patient denies abdominal pain patient denies nausea vomiting diarrhea per patient denies any chest pain shortness breath or difficulty breathing. Patient denies any headache patient denies numbness weakness per patient denies any lightheadedness or dizziness currently - Related Data Home Medications Medication Instructions Recorded Confirmed Aspirin EC [Ecotrin] 162.6 tab PO DAILY 01/07/15 11/12/16 Simvastatin [Zocor] 20 mg PO HS 01/07/15 11/12/16 Coconut Oil Capsule 2 cap PO DAILY 11/09/16 11/12/16 [place]-3 Fatty Acids [[place]-3] 1,000 mg PO DAILY 11/09/16 11/12/16 Ubidecarenone [Co Q-10] 200 mg PO DAILY 11/09/16 11/12/16 Sulfamethox-Tmp 800-160Mg [Bactrim 1 tab PO BID 11/12/16 11/12/16 DS 800-160 mg] Previous Rx's Medication Instructions Recorded Citalopram Hydrobromide [CeleXA] 10 mg PO DAILY #30 tab 11/11/16 Donepezil [Aricept] 5 mg PO HS #30 tab 11/11/16 Metoprolol Tartrate [Lopressor] 25 mg PO HS #0 11/11/16 amLODIPine [Norvasc] 5 mg PO DAILY #0 11/11/16 Allergies Allergy/AdvReac Type Severity Reaction Status Date / Time No Known Allergies Allergy Verified 11/12/16 16:13 Review of Systems ROS Statement: Those systems with pertinent positive or pertinent negative responses have been documented in the HPI. ROS Other: All systems not noted in ROS Statement are negative. Past Medical History Past Medical History: Hyperlipidemia, Hypertension History of Any Multi-Drug Resistant Organisms: None Reported Past Surgical History: Bladder Surgery, Hysterectomy, Orthopedic Surgery Additional Past Surgical History / Comment(s): thyroid Past Psychological History: No Psychological Hx Reported Smoking Status: Never smoker Past Alcohol Use History: None Reported Past Drug Use History: None Reported General Exam - General Exam Comments Initial Comments: GENERAL: Patient is well-developed and well-nourished. Patient is nontoxic and well- hydrated and is in no acute distress. ENT: Neck is soft and supple. No significant lymphadenopathy is noted. Oropharynx is clear. Moist mucous membranes. Neck has full range of motion without eliciting any pain. EYES: The sclera were anicteric and conjunctiva were pink and moist. Extraocular movements were intact and pupils were equal round and reactive to light. Eyelids were unremarkable. PULMONARY: Unlabored respirations. Good breath sounds bilaterally. No audible rales rhonchi or wheezing was noted. CARDIOVASCULAR: There is a regular rate and rhythm without any murmurs gallops or rubs. ABDOMEN: Soft and nontender with normal bowel sounds. No palpable organomegaly was noted. There is no palpable pulsatile mass. SKIN: Skin is clear with no lesions or rashes and otherwise unremarkable. NEUROLOGIC: Patient is alert and oriented x3. Cranial nerves II through XII are grossly intact. Motor and sensory are also intact. Normal speech, volume and content. Symmetrical smile. MUSCULOSKELETAL: Normal extremities with adequate strength and full range of motion. No lower extremity swelling or edema. No calf tenderness. LYMPHATICS: No significant lymphadenopathy is noted PSYCHIATRIC: Normal psychiatric evaluation. Normal interpersonal interactions appears functionally intact in deals appropriately with others. No signs of depression. Course Vital Signs 11/12/16 11/12/16 11/12/16 15:40 16:04 17:22 Temperature 98.6 F Pulse Rate 69 67 Pulse Rate [ 70 Left Sitting Pulse Oximetery ] Pulse Rate [ 75 Left Standing Pulse Oximetery ] Pulse Rate [ 68 Left Supine Pulse Oximetery ] Respiratory 20 18 Rate Blood Pressure 119/71 142/78 Blood Pressure 115/62 [Right Arm Sitting] Blood Pressure 113/58 [Right Arm Standing] Blood Pressure 117/60 [Right Arm Supine] O2 Sat by Pulse 95 97 Oximetry Medical Decision Making - Medical Decision Making Patient is a sinus rhythm with an occasional PVC at 70 bpm QRS is 86 QT interval 420 QTC is 462. Patient's EKG shows no ST segment elevation or depression or T-wave abdomen is noted. I spoke with Dr. Garcia about the patient he wanted the patient to cut the amlodipine and a half to 2.5 patient's understood and will follow-up with Dr. Wang as an outpatient. - Lab Data Result diagrams: 11/12/16 14:50 11/12/16 14:50 Lab Results 11/12/16 11/12/16 11/12/16 Range/Units 14:50 14:50 14:50 WBC 7.3 (3.8-10.6) k/uL RBC 4.85 (3.80-5.40) m/uL Hgb 14.3 (11.4-16.0) gm/dL Hct 42.9 (34.0-46.0) % MCV 88.5 (80.0-100.0) fL MCH 29.4 (25.0-35.0) pg MCHC 33.2 (31.0-37.0) g/dL RDW 12.6 (11.5-15.5) % Plt Count 227 (150-450) k/uL Neutrophils % 57 % Lymphocytes % 32 % Monocytes % 5 % Eosinophils % 3 % Basophils % 1 % Neutrophils # 4.2 (1.3-7.7) k/uL Lymphocytes # 2.4 (1.0-4.8) k/uL Monocytes # 0.4 (0-1.0) k/uL Eosinophils # 0.2 (0-0.7) k/uL Basophils # 0.1 (0-0.2) k/uL PT (9.0-12.0) sec INR (<1.1) APTT (22.0-30.0) sec Sodium 139 (137-145) mmol/L Potassium 3.9 (3.5-5.1) mmol/L Chloride 103 (98-107) mmol/L Carbon Dioxide 23 (22-30) mmol/L Anion Gap 13 mmol/L BUN 17 (7-17) mg/dL Creatinine 1.33 H (0.52-1.04) mg/dL Est GFR (MDRD) Af Amer 46 (>60 ml/min/1.73 sqM) Est GFR (MDRD) Non-Af 38 (>60 ml/min/1.73 sqM) Glucose 128 H (74-99) mg/dL POC Glucose (mg/dL) (75-99) mg/dL POC Glu Facility Maintenance Worker ID Calcium 9.3 (8.4-10.2) mg/dL Magnesium 2.0 (1.6-2.3) mg/dL Total Bilirubin 0.6 (0.2-1.3) mg/dL AST 27 (14-36) U/L ALT 33 (9-52) U/L Alkaline Phosphatase 59 (38-126) U/L Total Creatine Kinase 113 (30-135) U/L CK-MB (CK-2) 1.6 (0.0-2.4) ng/mL CK-MB (CK-2) Rel Index 1.4 Troponin I 0.017 (0.000-0.034) ng/mL Total Protein 6.7 (6.3-8.2) g/dL Albumin 3.7 (3.5-5.0) g/dL 11/12/16 11/12/16 Range/Units 14:50 15:45 WBC (3.8-10.6) k/uL RBC (3.80-5.40) m/uL Hgb (11.4-16.0) gm/dL Hct (34.0-46.0) % MCV (80.0-100.0) fL MCH (25.0-35.0) pg MCHC (31.0-37.0) g/dL RDW (11.5-15.5) % Plt Count (150-450) k/uL Neutrophils % % Lymphocytes % % Monocytes % % Eosinophils % % Basophils % % Neutrophils # (1.3-7.7) k/uL Lymphocytes # (1.0-4.8) k/uL Monocytes # (0-1.0) k/uL Eosinophils # (0-0.7) k/uL Basophils # (0-0.2) k/uL PT 10.8 (9.0-12.0) sec INR 1.1 (<1.1) APTT 22.9 (22.0-30.0) sec Sodium (137-145) mmol/L Potassium (3.5-5.1) mmol/L Chloride (98-107) mmol/L Carbon Dioxide (22-30) mmol/L Anion Gap mmol/L BUN (7-17) mg/dL Creatinine (0.52-1.04) mg/dL Est GFR (MDRD) Af Amer (>60 ml/min/1.73 sqM) Est GFR (MDRD) Non-Af (>60 ml/min/1.73 sqM) Glucose (74-99) mg/dL POC Glucose (mg/dL) 123 H (75-99) mg/dL POC Glu Facility Maintenance Worker ID Katherine Gabriel Calcium (8.4-10.2) mg/dL Magnesium (1.6-2.3) mg/dL Total Bilirubin (0.2-1.3) mg/dL AST (14-36) U/L ALT (9-52) U/L Alkaline Phosphatase (38-126) U/L Total Creatine Kinase (30-135) U/L CK-MB (CK-2) (0.0-2.4) ng/mL CK-MB (CK-2) Rel Index Troponin I (0.000-0.034) ng/mL Total Protein (6.3-8.2) g/dL Albumin (3.5-5.0) g/dL Disposition Clinical Impression: Syncope Disposition: HOME SELF-CARE Condition: Good Instructions: Syncope (ED) Additional Instructions: Patient should follow-up with Dr. Wang as previously scheduled. Patient should continue her Aricept. Patient cut her amlodipine and half. Referrals: Buck Brown MD [Primary Care Provider] - 1-2 days Time of Disposition: 18:06
--- NOTE | 2016-11-12 16:12 | XR ---
EXAMINATION TYPE: XR chest 2V DATE OF EXAM: 11/12/2016 4:08 PM COMPARISON: NONE INDICATION: Chest pain TECHNIQUE: Frontal and lateral views of the chest are obtained. FINDINGS: The heart size is normal. The pulmonary vasculature is normal. The lungs are clear. IMPRESSION: 1. No acute pulmonary process.
[2016-11-12 16:16] LABS: Basophils # (A) 0.1 k/uL (0-0.2); Basophils % (A) 1 %; Eosinophils # (A) 0.2 k/uL (0-0.7); Eosinophils % (A) 3 %; HCT 42.9 % (34.0-46.0); HDW 2.67; HGB 14.3 gm/dL (11.4-16.0); Luc % (Auto) 1; Lymphocytes # (A) 2.4 k/uL (1.0-4.8); Lymphocytes % (A) 32 %; MCH 29.4 pg (25.0-35.0); MCHC 33.2 g/dL (31.0-37.0); MCV 88.5 fL (80.0-100.0); Monocytes # (A) 0.4 k/uL (0-1.0); Monocytes % (A) 5 %; Neutrophils # (A) 4.2 k/uL (1.3-7.7); Neutrophils % (A) 57 %; RBC 4.85 m/uL (3.80-5.40); RDW 12.6 % (11.5-15.5); WBC 7.3 k/uL (3.8-10.6); WBC (Perox) 7.49
[2016-11-12 16:24] LABS: Calcium 9.3 mg/dL (8.4-10.2); Potassium 3.9 mmol/L (3.5-5.1); Total Bilirubin 0.6 mg/dL (0.2-1.3); Total Protein 6.7 g/dL (6.3-8.2)
[2016-11-12 16:29] LABS: INR 1.1 (<1.1); Partial Thromboplastin Time 22.9 sec (22.0-30.0); Prothrombin Time 10.8 sec (9.0-12.0)
[2016-11-12 16:51] LABS: Glucose,Whole Blood 123 mg/dL (75-99)
[2016-11-12 16:55] LABS: Creatine Kinase MB 1.6 ng/mL (0.0-2.4); Troponin I 0.017 ng/mL (0.000-0.034)
[2016-11-12 17:24] VITALS: RESP 18
[2016-11-12] MEDS ORDERED: METOPROLOL SUCCINATE (ER) 25 MG TAB.ER.24H PO STA (17:30)
[2016-11-12 18:15] VITALS: BP 142/75; PULSE 78; TEMP 98
== END 2016-11-12 18:32 | disposition home or self-care (01) ==
LOC: EC 15:35
DX: R55 Syncope and collapse (principal); I10 Essential (primary) hypertension; E78.5 Hyperlipidemia, unspecified; Z79.82 Long term (current) use of aspirin; Z79.899 Other long term (current) drug therapy
CPT/HCPCS: 36415; 71020; 80053; 82550; 82553; 83735; 84484; 85025; 85610; 85730; 93005; 99284

== ENCOUNTER 2017-11-03 10:07 | Emergency (ER) | payer MEDICARE, OTHER ==
[2017-11-03 10:16] VITALS: RESP 18; TEMP 97
--- NOTE | 2017-11-03 10:40 | ED ---
General Adult HPI - General Chief complaint: Fall Stated complaint: Fall Time Seen by Provider: 11/03/17 10:10 Source: patient, EMS, RN notes reviewed, old records reviewed Mode of arrival: EMS Limitations: altered mental status - History of Present Illness Initial comments: Complaint and history of present illness; this is an 82-year-old female brought emergency room by EMS with a [place] collar on. They report that this patient was severe dementia fell at home. Election of the incident due to her dementia. Patient denies pain. Been reportedly told EMS that when she fell she bumped her head. Patient denies head or neck pain. - Related Data Home Medications Medication Instructions Recorded Confirmed ALPRAZolam [Xanax] 0.25 mg PO DAILY PRN 11/03/17 11/03/17 Aspirin EC [Ecotrin Low Dose] 81 mg PO DAILY 11/03/17 11/03/17 Citalopram Hydrobromide [CeleXA] 10 mg PO DAILY 11/03/17 11/03/17 Donepezil [Aricept] 10 mg PO HS 11/03/17 11/03/17 Metoprolol Tartrate [Lopressor] 12.5 mg PO DAILY 11/03/17 11/03/17 Simvastatin [Zocor] 20 mg PO HS 11/03/17 11/03/17 amLODIPine [Norvasc] 2.5 mg PO DAILY 11/03/17 11/03/17 Allergies Allergy/AdvReac Type Severity Reaction Status Date / Time No Known Allergies Allergy Verified 11/03/17 10:28 Review of Systems ROS Statement: Those systems with pertinent positive or pertinent negative responses have been documented in the HPI. You have systems; patient has dementia. She answers questions but states she does not remember having fallen just 40 minutes ago. Patient's denying head or neck pain, denies chest pain or abdominal pain pelvic pain or extremity pain. All systems were reviewed but again the patient has dementia. Medical problems as obtained from previous charts includes dementia, hyperlipidemia and hypertension. Surgeries include a bladder surgery hysterectomy, thyroid surgery. And some orthopedic surgery currently not ROS Other: All systems not noted in ROS Statement are negative. Past Medical History Past Medical History: Dementia, Hyperlipidemia, Hypertension History of Any Multi-Drug Resistant Organisms: None Reported Past Surgical History: Bladder Surgery, Hysterectomy, Orthopedic Surgery Additional Past Surgical History / Comment(s): thyroid Past Psychological History: Anxiety Smoking Status: Never smoker Past Alcohol Use History: None Reported Past Drug Use History: None Reported General Exam - General Exam Comments Initial Comments: General: The patient is awake has a [place] collar on, recent fall at home and reportedly hit her head. The patient is not on blood thinners. The patient has dementia. She does not remember the incident. She personally has no complaints when asked. Vital signs shows a temperature 97.0 pulse 66 respiratory rate 18 pulse ox 97% room air blood pressure 162/89, mildly anxious. Eye: Pupils are equal, round and reactive to light, extra-ocular movements are intact ; there is normal conjunctiva bilaterally. No signs of icterus. Ears, nose, mouth and throat: There are moist mucous membranes and no oral lesions. Neck: He shouldn't has a [place] collar on her neck, provided by EMS. Patient denies neck pain. She will have a CAT scan of her brain and cervical spine before this is removed. Cardiovascular: There is a regular rate and rhythm. No murmur, rub or gallop is appreciated. Respiratory: Lungs are clear to auscultation, respirations are non-labored, breath sounds are equal. No wheezes, stridor, rales, or rhonchi. Patient of the rib cage does not elicit any evidence of pain. Gastrointestinal: Soft, non-distended, non-tender abdomen without masses or organomegaly noted. There is no rebound or guarding present. No CVA tenderness. Bowel sounds are unremarkable. Back: There is no tenderness to palpation in the midline. There is no obvious deformity. No rashes noted. Denying any pain with palpation of the spine. Musculoskeletal: Normal ROM, no tenderness, There is no pedal edema. There is no calf tenderness or swelling. Sensation intact. Pulses equal bilaterally 2+. Neurological: she has dementia, states she does not know why she is here. She thinks her fell. She has talking, able to move all extremities. Skin: Skin is warm and dry and no rashes or lesions are noted. Psychiatric: Dementia Limitations: altered mental status Course Vital Signs 11/03/17 11/03/17 10:09 12:16 Temperature 97 F L Pulse Rate 66 64 Respiratory 18 18 Rate Blood Pressure 162/89 163/83 O2 Sat by Pulse 97 98 Oximetry Medical Decision Making - Medical Decision Making Decision making; patient had CT of the brain and cervical spine. The radiologist's impression is multilevel degenerative disc changes with loss of disc height. Foraminal stenosis greater than the upper cervical spine discussed in the body of the report. No acute osseous abnormality. Enlarged heterogeneous left lobe thyroid displacing the trachea and esophagus to the right. Evaluation with ultrasound should be performed. Also correlate for acute left maxillary sinusitis. With atrophy , mild peruventricular white matter ischemic changes. As read by Dr. Mcdonough collar removed so patient could have the rest of her x-rays. Reexamination no evidence of pain with palpation or movement. X-ray of the chest was done and reviewed by radiologist's his final impression is cardiomegaly is stable. Substernal goiter causing tracheal deviation. As read by Dr. Mcdonald Pelvic x-ray was done reviewed radiologist. His impression is there is no acute fracture dislocation of the pelvis. As read by Dr. Thornton Examination finds no increased complaints. Patient be discharged to the care of her . Disposition Clinical Impression: Fall Disposition: HOME SELF-CARE Condition: Stable Instructions: Fall Prevention for Older Adults (ED), Contusion in Adults (ED) Additional Instructions: Remembered change positions slowly. Use walker or cane as needed. Follow-up with family physician. Take medications i.e. Tylenol for discomfort. Return emergency room with any problems. Referrals: Jostin Garcia MD [Primary Care Provider] - 1-2 days Time of Disposition: 12:42
--- NOTE | 2017-11-03 10:57 | CT ---
EXAMINATION TYPE: CT brain blanc[place] wo con DATE OF EXAM: 11/03/2017 COMPARISON: 11/09/2016 HISTORY: Fell at home CT DLP: Brain (1973.70) and C-spine (367.70) mGycm, Automated exposure control for dose reduction was used. CONTRAST: None CT of the brain is performed utilizing 3 mm thick sections through the posterior fossa and 3 mm thick sections through the remaining calvarium. Study is performed within 24 hours of arrival to the hospital. No abnormal hyperdensity is present to suggest an acute intracranial hemorrhage. No mass lesion is evident. No acute infarcts are evident. Periventricular white matter hypodensity is present, likely on the ba sis of chronic white matter ischemic changes. Ventricles and sulci are prominent for the patient age. There is an air-fluid level within the left maxillary sinus. Correlate for acute left maxillary sinus itis. IMPRESSIONS: 1. Atrophy with mild periventricular white matter ischemic changes. CT cervical spine. COMPARISON: None CT of the cervical spine is performed in the axial plane at 2 mm thick sections. Reconstructed image s in the coronal, and sagittal plane are reviewed on the computer. No acute fractures are evident. There is straightening of the cervical spine in the sagittal plane. There is loss of disc height throughout the cervical spine. Vertebral body heights are preserved. No spinal canal stenosis is evident. Uncovertebral joint hypertrophy and some facet hypertrophy at this 3 4 level is contributing to sever e right and moderate left foraminal narrowing. Severe right and moderate left foraminal narrowing is present at the C4-5 foramen. Mild bilateral foraminal narrowing due to uncovertebral joint hypertroph y is present C5-6. Heterogenous appearing left lobe thyroid is enlarged and is displacing the trachea and esophagus to t he right. Additional workup with ultrasound is recommended. IMPRESSIONS: 1. Multilevel degenerative disc changes with loss of disc height. 2. Foraminal stenosis greater in the upper cervical spine discussed above. 3. No acute osseous abnormality. 4. Enlarged heterogenous left lobe thyroid displacing the trachea and esophagus to the right. Evaluat ion with ultrasound should be performed.
--- NOTE | 2017-11-03 11:48 | XR ---
EXAMINATION TYPE: XR chest 2V DATE OF EXAM: 11/03/2017 COMPARISON: Prior chest x-ray 11/12/[address] chest 11/09/2016 HISTORY: Altered mental status, trauma, pain in the back TECHNIQUE: Frontal and lateral views of the chest are obtained. FINDINGS: There is no focal air space opacity, pleural effusion, or pneumothorax seen. The cardiac silhouette size is stable. Arthropathy noted within the shoulders. Tracheal deviation noted towards the right. The osseous structures are intact. IMPRESSION: Cardiomegaly is stable. Substernal goiter causing tracheal deviation.
--- NOTE | 2017-11-03 11:50 | XR ---
EXAMINATION TYPE: XR pelvis AP view DATE OF EXAM: 11/03/2017 CLINICAL HISTORY: Altered mental status with fall and back pain. TECHNIQUE: A single AP view of the pelvis is obtained. COMPARISON: None. FINDINGS: There is no acute fracture/dislocation evident in the pelvis. The hip and sacroiliac join ts appear symmetric with moderate degenerative change. The overlying soft tissue appears unremarkabl e. Multiple phleboliths are noted within the low pelvis. IMPRESSION: There is no acute fracture or dislocation in the pelvis.
[2017-11-03 12:17] VITALS: BP 163/83; PULSE 64
== END 2017-11-03 12:57 | disposition home or self-care (01) ==
LOC: EC 10:07
DX: Z04.3 Encounter for examination and observation following other accident (principal); F03.90 Unspecified dementia, unspecified severity, without behavioral disturbance, psychotic disturbance, mood disturbance, and anxiety; E78.5 Hyperlipidemia, unspecified; I10 Essential (primary) hypertension; Z79.82 Long term (current) use of aspirin; Z79.899 Other long term (current) drug therapy; W19.XXXA Unspecified fall, initial encounter; Y92.009 Unspecified place in unspecified non-institutional (private) residence as the place of occurrence of the external cause
CPT/HCPCS: 70450; 71046; 72125; 72170; 99285

== ENCOUNTER 2019-10-11 08:54 | Emergency (ER) | payer MEDICARE, OTHER ==
[2019-10-11 09:08] VITALS: TEMP 98
[2019-10-11] MEDS ORDERED: LORazepam 2 MG/ML INJ IM STA (09:28)
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
--- NOTE | 2019-10-11 10:42 | XR ---
EXAMINATION TYPE: XR chest 1V portable DATE OF EXAM: 10/11/2019 HISTORY: Shortness of breath. COMPARISON: 11/03/2017 TECHNIQUE: Single view of the chest is submitted. FINDINGS: Demonstrated are scattered senescent parenchymal change. There is no evidence for focal infiltrate. The heart is stable. Hilar and mediastinal structures are within normal limits. Degenerative changes are seen of the dorsal spine. IMPRESSION: 1. Chronic changes without evidence for acute pulmonary disease.
[2019-10-11 11:36] VITALS: RESP 16
[2019-10-11 11:51] LABS: Basophils # (A) 0.1 k/uL (0-0.2); Basophils % (A) 1 %; Eosinophils # (A) 0.2 k/uL (0-0.7); Eosinophils % (A) 3 %; HCT 44.4 % (34.0-46.0); HGB 14.6 gm/dL (11.4-16.0); Lymphocytes % (A) 34 %; MCH 29.8 pg (25.0-35.0); MCHC 32.9 g/dL (31.0-37.0); MCV 90.5 fL (80.0-100.0); Mean Platelet Volume 7.7; Monocytes # (A) 0.3 k/uL (0-1.0); Monocytes % (A) 5 %; Neutrophils # (A) 3.2 k/uL (1.3-7.7); Neutrophils % (A) 55 %; Platelet Count 189 k/uL (150-450); RDW 12.5 % (11.5-15.5); WBC 5.8 k/uL (3.8-10.6)
[2019-10-11 11:58] LABS: Albumin 3.7 g/dL (3.5-5.0); Calcium 9.5 mg/dL (8.4-10.2); Potassium 3.5 mmol/L (3.5-5.1); Total Bilirubin 0.7 mg/dL (0.2-1.3); Total Protein 6.5 g/dL (6.3-8.2)
[2019-10-11 12:26] VITALS: BP 164/90; PULSE 70
== END 2019-10-11 12:26 | disposition home or self-care (01) ==
LOC: EC 08:54
DX: F03.90 Unspecified dementia, unspecified severity, without behavioral disturbance, psychotic disturbance, mood disturbance, and anxiety (principal); F41.9 Anxiety disorder, unspecified; I10 Essential (primary) hypertension; E78.5 Hyperlipidemia, unspecified; Z79.82 Long term (current) use of aspirin; Z79.899 Other long term (current) drug therapy
CPT/HCPCS: 36415; 93005; 80053; 85025; 71045; 99285; 96372; J2060

== ENCOUNTER 2019-10-21 11:51 | Inpatient (IN) | payer MEDICARE, OTHER ==
[2019-10-21] MEDS ORDERED: SODIUM CHLORIDE 0.9% 1,000 ML IV STA (12:01)
--- NOTE | 2019-10-21 12:46 | ED ---
Syncope HPI - General Chief Complaint: Syncope Stated Complaint: SYNCOPE Time Seen by Provider: 10/21/19 11:52 - History of Present Illness Initial Comments: The patient is an 84-year-old female with past history of dementia, hypertension and hyperlipidemia presents emergency department with reported syncopal episode. EMS states that the patient was on the toilet. was trying to get her off the toilet with his assistance however the patient was too weak. She then ended up having a syncopal episode. He propped her up on the toilet and went to call EMS. EMS arrived and the patient was still unconscious. This lasted for approximately 30 minutes. They later down the ground where the patient spontaneously awoke. She was initially confused at first. Blood pressure was noted to be 80 systolic. IV access was established and the patient was transferred without incident. Blood pressure did improve upon transport. The patient did not suffer any trauma. There is no seizure-like activity. Brown stool was noted within the toilet. No melenic stools or hematochezia noted. The patient's cannot provide history to me because of her advanced dementia. She denies any chest pain or shortness of breath. No nausea or vomiting. No recent illnesses. There are no alleviating, precipitating or modifying factors - Related Data Home Medications Medication Instructions Recorded Confirmed ALPRAZolam [Xanax] 0.25 mg PO TID PRN 11/03/17 10/21/19 Aspirin EC [Ecotrin Low Dose] 81 mg PO HS 11/03/17 10/21/19 Citalopram Hydrobromide [CeleXA] 10 mg PO DAILY 11/03/17 10/21/19 Donepezil [Aricept] 10 mg PO BID 11/03/17 10/21/19 Metoprolol Tartrate [Lopressor] 12.5 mg PO DAILY 11/03/17 10/21/19 Simvastatin [Zocor] 20 mg PO HS 11/03/17 10/21/19 amLODIPine [Norvasc] 2.5 mg PO DAILY 11/03/17 10/21/19 Bimatoprost [Lumigan .01% Ophth 1 drop BOTH EYES HS 10/21/19 10/21/19 Soln] Docusate [Colace] 100 mg PO DAILY 10/21/19 10/21/19 Memantine HCl [Memantine HCl ER] 14 mg PO DAILY 10/21/19 10/21/19 Ubidecarenone [Co Q-10] 400 mg PO HS 10/21/19 10/21/19 Allergies Allergy/AdvReac Type Severity Reaction Status Date / Time No Known Allergies Allergy Verified 10/21/19 14:22 Review of Systems ROS Statement: Those systems with pertinent positive or pertinent negative responses have been documented in the HPI. ROS Other: All systems not noted in ROS Statement are negative. Past Medical History Past Medical History: Dementia, Hyperlipidemia, Hypertension History of Any Multi-Drug Resistant Organisms: None Reported Past Surgical History: Bladder Surgery, Hysterectomy, Orthopedic Surgery Additional Past Surgical History / Comment(s): thyroid Past Psychological History: Anxiety Smoking Status: Never smoker Past Alcohol Use History: None Reported Past Drug Use History: None Reported - Past Family History Father Family Medical History: Unable to Obtain General Exam Limitations: altered mental status General appearance: alert, in no apparent distress Head exam: Present: atraumatic, normocephalic, normal inspection Eye exam: Present: normal appearance, PERRL, EOMI. Absent: scleral icterus, conjunctival injection, periorbital swelling ENT exam: Present: normal exam, mucous membranes moist Neck exam: Present: normal inspection. Absent: tenderness, meningismus, lymphadenopathy Respiratory exam: Present: normal lung sounds bilaterally. Absent: respiratory distress, wheezes, rales, rhonchi, stridor Cardiovascular Exam: Present: regular rate, normal rhythm, normal heart sounds. Absent: systolic murmur, diastolic murmur, rubs, gallop, clicks GI/Abdominal exam: Present: soft, normal bowel sounds. Absent: distended, tenderness, guarding, rebound, rigid Extremities exam: Present: normal inspection, full ROM, normal capillary refill. Absent: tenderness, pedal edema, joint swelling, calf tenderness Back exam: Present: normal inspection Neurological exam: Present: alert, CN II-XII intact Psychiatric exam: Present: agitated Skin exam: Present: warm, dry, intact, normal color. Absent: rash Course Vital Signs 10/21/19 10/21/19 10/21/19 12:05 12:10 12:30 Temperature 97.4 F L Pulse Rate 56 L 56 L Respiratory 22 24 Rate Blood Pressure 113/58 116/65 O2 Sat by Pulse 96 97 Oximetry 10/21/19 13:00 Temperature Pulse Rate 62 Respiratory 20 Rate Blood Pressure 122/78 O2 Sat by Pulse Oximetry EKG Findings - EKG Comments: EKG Findings:: EKG demonstrates a sinus bradycardia with a first-degree AV block. Significant baseline artifact. Rate of 56. ID interval 220. QRS E4. QTC of 465. No acute ST segment elevations or depressions. Medical Decision Making - Medical Decision Making Upon arrival the patient was placed in the trauma bay 2. She is hooked up to continuous pulse ox and cardiac monitoring. 12-lead EKG was performed. Peripheral was established. Laboratory studies were conducted. CBC and coags are normal. CPK shows a glucose of 192. Urinalysis shows 1+ protein with 9 hyalin casts. Chest x-ray demonstrates mild to moderate cardio medically and chronic parenchymal changes. Atelectasis at the right base. CT of the patient's brain inserts mild to moderate atrophy and patchy changes of chronic small vessel ischemic disease. No acute intracranial abnormality. The patient remains alert while within the ED. Blood pressure continues to improve. I discussed diagnosis, differential and treatment options with the patient's . He does feel more comfortable admitting the patient for overnight observation. He also states that he feels he no longer can care for the patient is requesting placement. Call discuss case with Dr. Pina who accepted mission for the patient. I placed cardiology consult. The patient did become slightly agitated while in the ER. The does have Xanax at home that he provides the patient 3 times a day. I did order her dose of Ativan. She has remained calm after it is administered her the patient was transported in stable condition - Lab Data Result diagrams: 10/22/19 06:53 10/22/19 06:53 Lab Results 10/21/19 10/21/19 10/21/19 Range/Units 12:28 12:28 12:28 WBC 6.2 (3.8-10.6) k/uL RBC 4.76 (3.80-5.40) m/uL Hgb 14.0 (11.4-16.0) gm/dL Hct 43.7 (34.0-46.0) % MCV 91.9 (80.0-100.0) fL MCH 29.4 (25.0-35.0) pg MCHC 32.0 (31.0-37.0) g/dL RDW 12.5 (11.5-15.5) % Plt Count 185 (150-450) k/uL Neutrophils % 71 % Lymphocytes % 23 % Monocytes % 3 % Eosinophils % 2 % Basophils % 0 % Neutrophils # 4.4 (1.3-7.7) k/uL Lymphocytes # 1.4 (1.0-4.8) k/uL Monocytes # 0.2 (0-1.0) k/uL Eosinophils # 0.1 (0-0.7) k/uL Basophils # 0.0 (0-0.2) k/uL PT 10.9 (9.0-12.0) sec INR 1.0 (<1.2) APTT 22.6 (22.0-30.0) sec Sodium 140 (137-145) mmol/L Potassium 4.0 (3.5-5.1) mmol/L Chloride 106 (98-107) mmol/L Carbon Dioxide 28 (22-30) mmol/L Anion Gap 6 mmol/L BUN 14 (7-17) mg/dL Creatinine 0.95 (0.52-1.04) mg/dL Est GFR (CKD-EPI)AfAm 63 (>60 ml/min/1.73 sqM) Est GFR (CKD-EPI)NonAf 55 (>60 ml/min/1.73 sqM) Glucose 192 H (74-99) mg/dL Calcium 9.5 (8.4-10.2) mg/dL Total Bilirubin 0.8 (0.2-1.3) mg/dL AST 25 (14-36) U/L ALT 16 (4-34) U/L Alkaline Phosphatase 61 (38-126) U/L Creatine Kinase 31 (30-135) U/L Troponin I (0.000-0.034) ng/mL Total Protein 6.4 (6.3-8.2) g/dL Albumin 3.6 (3.5-5.0) g/dL Urine Color Urine Appearance (Clear) Urine pH (5.0-8.0) Ur Specific [place] (1.001-1.035) Urine Protein (Negative) Urine Glucose (UA) (Negative) Urine Ketones (Negative) Urine Blood (Negative) Urine Nitrite (Negative) Urine Bilirubin (Negative) Urine Urobilinogen (<2.0) mg/dL Ur Leukocyte Esterase (Negative) Urine RBC (0-5) /hpf Urine WBC (0-5) /hpf Ur Squamous Epith Cells (0-4) /hpf Hyaline Casts (0-2) /lpf Urine Mucus (None) /hpf 10/21/19 10/21/19 10/21/19 Range/Units 12:28 13:42 18:28 WBC (3.8-10.6) k/uL RBC (3.80-5.40) m/uL Hgb (11.4-16.0) gm/dL Hct (34.0-46.0) % MCV (80.0-100.0) fL MCH (25.0-35.0) pg MCHC (31.0-37.0) g/dL RDW (11.5-15.5) % Plt Count (150-450) k/uL Neutrophils % % Lymphocytes % % Monocytes % % Eosinophils % % Basophils % % Neutrophils # (1.3-7.7) k/uL Lymphocytes # (1.0-4.8) k/uL Monocytes # (0-1.0) k/uL Eosinophils # (0-0.7) k/uL Basophils # (0-0.2) k/uL PT (9.0-12.0) sec INR (<1.2) APTT (22.0-30.0) sec Sodium (137-145) mmol/L Potassium (3.5-5.1) mmol/L Chloride (98-107) mmol/L Carbon Dioxide (22-30) mmol/L Anion Gap mmol/L BUN (7-17) mg/dL Creatinine (0.52-1.04) mg/dL Est GFR (CKD-EPI)AfAm (>60 ml/min/1.73 sqM) Est GFR (CKD-EPI)NonAf (>60 ml/min/1.73 sqM) Glucose (74-99) mg/dL Calcium (8.4-10.2) mg/dL Total Bilirubin (0.2-1.3) mg/dL AST (14-36) U/L ALT (4-34) U/L Alkaline Phosphatase (38-126) U/L Creatine Kinase (30-135) U/L Troponin I <0.012 <0.012 (0.000-0.034) ng/mL Total Protein (6.3-8.2) g/dL Albumin (3.5-5.0) g/dL Urine Color Yellow Urine Appearance Cloudy H (Clear) Urine pH 8.0 (5.0-8.0) Ur Specific [place] 1.012 (1.001-1.035) Urine Protein 1+ H (Negative) Urine Glucose (UA) Negative (Negative) Urine Ketones Negative (Negative) Urine Blood Negative (Negative) Urine Nitrite Negative (Negative) Urine Bilirubin Negative (Negative) Urine Urobilinogen <2.0 (<2.0) mg/dL Ur Leukocyte Esterase Negative (Negative) Urine RBC 1 (0-5) /hpf Urine WBC 2 (0-5) /hpf Ur Squamous Epith Cells <1 (0-4) /hpf Hyaline Casts 9 H (0-2) /lpf Urine Mucus Rare H (None) /hpf 10/22/19 10/22/19 10/22/19 Range/Units 01:21 06:53 06:53 WBC 8.1 (3.8-10.6) k/uL RBC 4.68 (3.80-5.40) m/uL Hgb 14.2 (11.4-16.0) gm/dL Hct 43.3 (34.0-46.0) % MCV 92.5 (80.0-100.0) fL MCH 30.4 (25.0-35.0) pg MCHC 32.9 (31.0-37.0) g/dL RDW 12.5 (11.5-15.5) % Plt Count 221 (150-450) k/uL Neutrophils % 64 % Lymphocytes % 28 % Monocytes % 5 % Eosinophils % 1 % Basophils % 0 % Neutrophils # 5.2 (1.3-7.7) k/uL Lymphocytes # 2.3 (1.0-4.8) k/uL Monocytes # 0.4 (0-1.0) k/uL Eosinophils # 0.1 (0-0.7) k/uL Basophils # 0.0 (0-0.2) k/uL PT (9.0-12.0) sec INR (<1.2) APTT (22.0-30.0) sec Sodium 142 (137-145) mmol/L Potassium 3.7 (3.5-5.1) mmol/L Chloride 109 H (98-107) mmol/L Carbon Dioxide 28 (22-30) mmol/L Anion Gap 5 mmol/L BUN 13 (7-17) mg/dL Creatinine 0.81 (0.52-1.04) mg/dL Est GFR (CKD-EPI)AfAm 77 (>60 ml/min/1.73 sqM) Est GFR (CKD-EPI)NonAf 66 (>60 ml/min/1.73 sqM) Glucose 113 H (74-99) mg/dL Calcium 9.4 (8.4-10.2) mg/dL Total Bilirubin (0.2-1.3) mg/dL AST (14-36) U/L ALT (4-34) U/L Alkaline Phosphatase (38-126) U/L Creatine Kinase (30-135) U/L Troponin I <0.012 (0.000-0.034) ng/mL Total Protein (6.3-8.2) g/dL Albumin (3.5-5.0) g/dL Urine Color Urine Appearance (Clear) Urine pH (5.0-8.0) Ur Specific [place] (1.001-1.035) Urine Protein (Negative) Urine Glucose (UA) (Negative) Urine Ketones (Negative) Urine Blood (Negative) Urine Nitrite (Negative) Urine Bilirubin (Negative) Urine Urobilinogen (<2.0) mg/dL Ur Leukocyte Esterase (Negative) Urine RBC (0-5) /hpf Urine WBC (0-5) /hpf Ur Squamous Epith Cells (0-4) /hpf Hyaline Casts (0-2) /lpf Urine Mucus (None) /hpf Disposition Clinical Impression: Syncope, Dementia, Hypotension Disposition: ADMITTED IP TO THIS [facility] Condition: Stable Is patient prescribed a controlled substance at d/c from ED?: No Decision to Admit Reason: Admit from EC Decision Date: 10/21/19 Decision Time: 14:31
[2019-10-21 12:51] LABS: Basophils % (A) 0 %; Eosinophils # (A) 0.1 k/uL (0-0.7); Eosinophils % (A) 2 %; HCT 43.7 % (34.0-46.0); Lymphocytes # (A) 1.4 k/uL (1.0-4.8); Lymphocytes % (A) 23 %; MCH 29.4 pg (25.0-35.0); MCV 91.9 fL (80.0-100.0); Mean Platelet Volume 7.9; Monocytes # (A) 0.2 k/uL (0-1.0); Monocytes % (A) 3 %; Neutrophils # (A) 4.4 k/uL (1.3-7.7); Neutrophils % (A) 71 %; Platelet Count 185 k/uL (150-450); RBC 4.76 m/uL (3.80-5.40); RDW 12.5 % (11.5-15.5); WBC 6.2 k/uL (3.8-10.6)
[2019-10-21 12:58] LABS: Partial Thromboplastin Time 22.6 sec (22.0-30.0); Prothrombin Time 10.9 sec (9.0-12.0)
[2019-10-21 13:08] LABS: Albumin 3.6 g/dL (3.5-5.0); Calcium 9.5 mg/dL (8.4-10.2); Total Bilirubin 0.8 mg/dL (0.2-1.3); Total Protein 6.4 g/dL (6.3-8.2)
--- NOTE | 2019-10-21 13:42 | XR ---
EXAMINATION TYPE: XR chest 2V DATE OF EXAM: 10/21/2019 COMPARISON: 10/11/2019 HISTORY: 84-year-old female with syncope TECHNIQUE: AP and lateral views FINDINGS: Heart mild to moderately enlarged. Diffuse interstitial densities. Mild patchy opacity right base, li romie atelectasis. No pleural effusion. IMPRESSION: Similar mild to moderate cardiomegaly and chronic parenchymal changes. Some patchy density at the rig ht base likely represents atelectasis.
--- NOTE | 2019-10-21 13:44 | CT ---
EXAMINATION TYPE: CT brain wo con DATE OF EXAM: 10/21/2019 COMPARISON: 11/03/2017 HISTORY: 84-year-old female confusion, AMS, syncope TECHNIQUE: Examination was done in axial plane without intravenous contrast. Coronal and sagittal r econstructions performed. CT DLP: 1023.4 mGycm Automated exposure control for dose reduction was used. FINDINGS: There is no evidence of acute intracranial hemorrhage, acute ischemic changes, mass, mass-effect, or extra-axial fluid collection. There is no effacement of cerebral sulci or basal subarachnoid cister ns. There is no hydrocephalus. There is no midline shift. Bailey-white matter distinction is preserv ed. Mild to moderate generalized supratentorial volume loss with secondary prominence to the ventricular system. Moderate patchy white matter hypodensities especially in the periventricular regions. Scattered mild to moderate mucosal thickening ethmoid air cells. Mastoid air cells are well pneumatiz ed. The globes are intact. IMPRESSION: Mild to moderate atrophy and patchy changes of chronic small vessel ischemic disease. No acute intrac ranial abnormality seen. Mild to moderate chronic ethmoid sinus disease.
[2019-10-21] MEDS ORDERED: LORazepam 2 MG/ML INJ IV STA (14:07)
[2019-10-21 14:15] LABS: Appearance,Urine Cloudy (Clear); Bilirubin,Urine Negative (Negative); Blood,Urine Negative (Negative); Color,Urine Yellow; Glucose,Urine (UA) Negative (Negative); Hyaline Casts,Urine 9 /lpf (0-2); Ketones,Urine Negative (Negative); Leukocyte Esterase,Urine Negative (Negative); Mucus,Urine Rare /hpf; Nitrite,Urine Negative (Negative); Protein,Urine 1+ (Negative); RBC,Urine 1 /hpf (0-5); Specific Gravity,Urine 1.012 (1.001-1.035); Squamous Epithelial Cell,Urine <1 /hpf (0-4); Urobilinogen,Urine <2.0 mg/dL (<2.0); WBC,Urine 2 /hpf (0-5)
[2019-10-21] MEDS ORDERED: NALOXONE 0.4 MG/ML 1 ML VIAL IV PRN (14:31)
[2019-10-21] MEDS: SODIUM CHLORIDE 0.9% 1,000 ML IV SCH (16:53)
[2019-10-21] MEDS: ASPIRIN 81 MG PO SCH (21:53)
[2019-10-21] MEDS: DONEPEZIL 10 MG TAB PO SCH (21:53)
[2019-10-21] MEDS: ATORVASTATIN 10 MG TAB PO SCH (21:53)
[2019-10-22] MEDS: SODIUM CHLORIDE 0.9% 1,000 ML IV SCH ×2 (03:08→21:25)
[2019-10-22 07:59] LABS: Basophils % (A) 0 %; Eosinophils # (A) 0.1 k/uL (0-0.7); Eosinophils % (A) 1 %; HCT 43.3 % (34.0-46.0); HGB 14.2 gm/dL (11.4-16.0); Lymphocytes # (A) 2.3 k/uL (1.0-4.8); Lymphocytes % (A) 28 %; MCH 30.4 pg (25.0-35.0); MCHC 32.9 g/dL (31.0-37.0); MCV 92.5 fL (80.0-100.0); Mean Platelet Volume 8.2; Monocytes # (A) 0.4 k/uL (0-1.0); Monocytes % (A) 5 %; Neutrophils # (A) 5.2 k/uL (1.3-7.7); Neutrophils % (A) 64 %; Platelet Count 221 k/uL (150-450); RBC 4.68 m/uL (3.80-5.40); RDW 12.5 % (11.5-15.5); WBC 8.1 k/uL (3.8-10.6)
[2019-10-22 08:31] LABS: Calcium 9.4 mg/dL (8.4-10.2); Potassium 3.7 mmol/L (3.5-5.1)
[2019-10-22] MEDS: METOPROLOL TARTRATE 12.5 MG TAB PO SCH (09:04)
[2019-10-22] MEDS: amLODIPine 2.5 MG TAB PO SCH (09:04)
[2019-10-22] MEDS: DOCUSATE 100 MG CAP PO SCH (09:04)
[2019-10-22] MEDS: MEMANTINE 5 MG TAB PO SCH ×2 (09:04→21:24)
[2019-10-22] MEDS: DONEPEZIL 10 MG TAB PO SCH ×2 (09:04→21:24)
--- NOTE | 2019-10-22 10:04 | US ---
EXAMINATION TYPE: US carotid duplex BILAT DATE OF EXAM: 10/22/2019 COMPARISON: NONE CLINICAL HISTORY: 84-year-old female LVF. Syncope TECHNIQUE: Carotid duplex ultrasound examination. Indirect Doppler criteria was utilized. FINDINGS: RECORDS AND INFORMATION MANAGER NOTES: Difficult/slightly limited exam due to pt having dementia, talking/moving during exam EXAM MEASUREMENTS: RIGHT: Peak Systolic Velocity (PSV) cm/sec ----- Right CCA: 73.5 ----- Right ICA: 65.3 ----- Right ECA: 143.8 ICA/CCA ratio: 0.9 RIGHT: End Diastole cm/sec ----- Right CCA: 16.4 ----- Right ICA: 10.4 ----- Right ECA: 16.0 LEFT: Peak Systolic Velocity (PSV) cm/sec ----- Left CCA: 93.8 ----- Left ICA: 72.4 ----- Left ECA: 90.3 ICA/CCA ratio: 0.8 LEFT: End Diastole cm/sec ----- Left CCA: 18.4 ----- Left ICA: 13.1 ----- Left ECA: 24.1 VERTEBRALS (direction of flow): Right Vertebral: Antegrade Left Vertebral: Unable to visualize Rhythm: Normal No significant stenosis seen IMPRESSION: 1. No hemodynamically significant proximal ICA stenosis identified with exam limitations as mentioned above. 2. Unable to visualize the left vertebral artery for adequate assessment. Criteria for Assigning % of Stenosis / Diameter reduction (Estimation based on the indirect measurements of the internal carotid artery velocities (ICA PSV). 1. Normal (no stenosis)=ICA PSV < 125 cm/s: ratio < 2.0: ICA EDV<40 cm/s. 2. Less than 50% stenosis=ICA PSV < 125 cm/s: ratio < 2.0: ICA EDV<40 cm/s. 3. 50 to 69% stenosis=ICA PSV of 125 to 230 cm/s: ration 2.0 ? 4.0: ICA EDV 40-100 cm/s. 4. Greater than 70% stenosis to near occlusion= ICA PSV > 230 cm/s: ratio > 4.0: ICA EDV > 100 cm/s. 5. Near occlusion= ICA PSV velocities may be low or undetectable: variable ratio and ICA EDV. 6. Total occlusion=unable to detect flow.
[2019-10-22] MEDS: ALPRAZolam 0.25 MG TAB PO PRN (12:22)
--- NOTE | 2019-10-22 13:59 | P.HPIM ---
History of Present Illness H&P Date: 10/22/19 This is an 84-year-old female patient of Dr. Garcia with past medical history of hypertension, hyperlipidemia and advanced dementia. Patient has been seen in the past by Dr. Wang for dementia, neuropathy with abnormal gait imbalance and had outpatient workup a few years ago. Patient was brought in by EMS to [facility] emergency center apparently she was on the toilet and her was trying to get her off the toilet however patient was too weak ended up having a syncopal episode. Patient was propped up on the toilet and EMS was called. Upon arrival, patient was found to be unconscious which lasted for about 30 minutes. Patient was placed on the ground and she spontaneously awoke. There apparently was no seizure-like activity. Patient had a brown stool in the toilet. No blood noted. Patient was found to be afebrile, heart rate 56, blood pressure 113/58, pulse ox 97% on room air. EKG was sinus bradycardia with first-degree block. No acute ST changes. CBC was unremarkable, electrolytes, renal function and liver function tests all within normal limits, blood sugar 192, troponin negative. Urinalysis was cloudy, nitrate and leukoesterase negative. CAT scan of brain showed mild to moderate atrophy and patchy changes of chronic small vessel ischemic change. No acute intracranial abnormality. Mild to moderate chronic ethmoid sinus disease. C hest x-ray reveals mild to moderate cardiomegaly and chronic gradual changes. Some patchy density at the right base represents atelectasis. Carotid ultrasound did not show any hemodynamically significant stenosis. Patient admitted to the [facility] floor and cardiology consult requested. No history is able to be obtained from the patient. Sitter is at bedside. Patient resides at [facility] with her . Review of Systems ROS unobtainable: due to mental status Past Medical History Past Medical History: Dementia, Hyperlipidemia, Hypertension History of Any Multi-Drug Resistant Organisms: None Reported Past Surgical History: Bladder Surgery, Hysterectomy, Orthopedic Surgery Additional Past Surgical History / Comment(s): thyroid Past Anesthesia/Blood Transfusion Reactions: No Reported Reaction Past Psychological History: Anxiety Smoking Status: Never smoker Past Alcohol Use History: None Reported Past Drug Use History: None Reported - Past Family History Father Family Medical History: Unable to Obtain Medications and Allergies Home Medications Medication Instructions Recorded Confirmed Type ALPRAZolam [Xanax] 0.25 mg PO TID PRN 11/03/17 10/21/19 History Aspirin EC [Ecotrin Low Dose] 81 mg PO HS 11/03/17 10/21/19 History Citalopram Hydrobromide [CeleXA] 10 mg PO DAILY 11/03/17 10/21/19 History Donepezil [Aricept] 10 mg PO BID 11/03/17 10/21/19 History Metoprolol Tartrate [Lopressor] 12.5 mg PO DAILY 11/03/17 10/21/19 History Simvastatin [Zocor] 20 mg PO HS 11/03/17 10/21/19 History amLODIPine [Norvasc] 2.5 mg PO DAILY 11/03/17 10/21/19 History Bimatoprost [Lumigan .01% Ophth 1 drop BOTH EYES HS 10/21/19 10/21/19 History Soln] Docusate [Colace] 100 mg PO DAILY 10/21/19 10/21/19 History Memantine HCl [Memantine HCl ER] 14 mg PO DAILY 10/21/19 10/21/19 History Ubidecarenone [Co Q-10] 400 mg PO HS 10/21/19 10/21/19 History Allergies Allergy/AdvReac Type Severity Reaction Status Date / Time No Known Allergies Allergy Verified 10/21/19 14:22 Physical Exam Vitals: Vital Signs Temp Pulse Pulse Resp BP BP Pulse Ox 10/22/19 07:05 68 14 10/22/19 00:20 97.6 F 68 14 148/81 95 10/21/19 20:10 98.4 F 83 18 149/82 94 L 10/21/19 16:00 16 10/21/19 15:30 97.7 F 73 16 147/81 97 10/21/19 13:00 62 20 122/78 10/21/19 12:30 56 L 24 116/65 10/21/19 12:10 97.4 F L 56 L 22 113/58 97 10/21/19 12:05 96 Intake and Output 10/21/19 10/22/19 10/22/19 22:59 06:59 14:59 Other: Voiding Method Diaper Diaper # Voids 1 1 Weight 77.111 kg Gen: This is an 84-year-old female. Patient is resting in bed and appears to be comfortable and in no acute distress. Patient sitter is at bedside. HEENT: Head is atraumatic, normocephalic. Pupils equal, round. Sclerae is anicteric. NECK: Supple. No JVD. No lymphadenopathy. No thyromegaly. LUNGS: Clear to auscultation. No wheezes or rhonchi. No intercostal retractions. HEART: Regular rate and rhythm. No murmur. ABDOMEN: Soft. Bowel sounds are present. No masses. No tenderness. EXTREMITIES: No pedal edema. No calf tenderness. NEUROLOGICAL: Patient is awake, alert to person only. Patient is able to follow instructions. Results CBC & Chem 7: 10/22/19 06:53 10/22/19 06:53 Labs: Abnormal Lab Results - Last 24 Hours (Table) 10/21/19 10/21/19 Range/Units 12:28 13:42 Glucose 192 H (74-99) mg/dL Urine Appearance Cloudy H (Clear) Urine Protein 1+ H (Negative) Hyaline Casts 9 H (0-2) /lpf Urine Mucus Rare H (None) /hpf Thrombosis Risk Factor Assmnt - DVT/VTE Prophylaxis DVT/VTE Prophylaxis: Pharmacologic Prophylaxis ordered - Choose All That Apply Any of the Below Risk Factors Present?: Yes Each Factor Represents 1 point: Obesity (BMI >25) Other Risk Factors: Yes Each Risk Factor Represents 3 Points: Age 75 years or older Thrombosis Risk Factor Assessment Total Risk Factor Score: 4 Thrombosis Risk Factor Assessment Level: Moderate Risk Assessment and Plan Plan: 1. Syncopal episode most likely vasovagal. Cardiology consult. Echocardiogram ordered. tool repairer bench. 2. Advanced dementia. Continue Aricept 10 mg twice daily, Namenda 5 mg twice daily. 3. Hypertension. Continue Norvasc 2.5 mg daily, Lopressor 12.5 mg daily. 4. Hyperlipidemia. Continue Lipitor 10 mg daily. 5. Generalized anxiety disorder. Continue Xanax 0.25 mg 3 times daily as needed. 6. GI prophylaxis. Pepcid. 7. DVT prophylaxis. Lovenox. Patient will be admitted to the hospital for a minimum of 2 night stay. Discharge plan: To be determined. PT and OT added. Impression and plan of care have been directed as dictated by the signing physician. Karen Saravia nurse practitioner acting as scribe for signing physician.
--- NOTE | 2019-10-22 14:06 | P.CRDCN ---
History of Present Illness Consult date: 10/22/19 Consult reason: sycope History of present illness: This is an 84-year-old female patient of Dr. Garcia with past medical history of hypertension, hyperlipidemia and advanced dementia. Patient has been seen in the past by Dr. Wang for dementia, neuropathy with abnormal gait imbalance and had outpatient workup a few years ago. Patient was brought in by EMS to [facility] emergency center apparently she was on the toilet and her was trying to get her off the toilet however patient was too weak ended up having a syncopal episode. Patient was propped up on the toilet and EMS was called. Upon arrival, patient was found to be unconscious which lasted for about 30 minutes. Patient was placed on the ground and she spontaneously awoke. There apparently was no seizure-like activity. Patient had a brown stool in the toilet. No blood noted. Patient was found to be afebrile, heart rate 56, blood pressure 113/58, pulse ox 97% on room air. EKG was sinus bradycardia with first-degree block. No acute ST changes. CBC was unremarkable, electrolytes, renal function and liver function tests all within normal limits, blood sugar 192, troponin negative. Urinalysis was cloudy, nitrate and leukoesterase negative. CAT scan of brain showed mild to moderate atrophy and patchy changes of chronic small vessel ischemic change. No acute intracranial abnormality. Mild to moderate chronic ethmoid sinus disease. Chest x-ray reveals mild to moderate cardiomegaly and chronic gradual changes. Some patchy density at the right base represents atelectasis. Carotid ultrasound did not show any hemodynamically significant stenosis. Patient admitted to the [facility] floor. No history is able to be obtained from the patient. Sitter is at bedside. Patient resides at [facility] with her . Patient was seen by cardiology in October 2016 during hospitalization for syncopal episode possibly vasovagal along with metabolic encephalopathy and UTI. A tilt table test revealed very mild dysautonomic response to upright tilting Review of Systems ROS unobtainable: due to mental status Physical exam: Afebrile, heart rate 65, blood pressure 135/81, pulse ox 93% on room air Gen: This is an 84-year-old female. Patient is resting in bed and appears to be comfortable and in no acute distress. Patient sitter is at bedside. HEENT: Head is atraumatic, normocephalic. Pupils equal, round. Sclerae is anicteric. NECK: Supple. No JVD. No lymphadenopathy. No thyromegaly. LUNGS: Clear to auscultation. No wheezes or rhonchi. No intercostal retractions. HEART: Regular rate and rhythm. No murmur. ABDOMEN: Soft. Bowel sounds are present. No masses. No tenderness. EXTREMITIES: No pedal edema. No calf tenderness. NEUROLOGICAL: Patient is awake, alert to person only. Patient is able to follow instructions. Assessment: Syncopal episode most likely vasovagal following bowel movement Advanced dementia Hypertension Hyperlipidemia Generalized anxiety disorder Plan: Obtain echocardiogram Obtain orthostatic vital signs daily Continue Norvasc 2.5 mg daily and Lopressor 12.5 mg daily, Lipitor 10 mg daily Further recommendations to follow based upon clinical course. Nurse practitioner note has been reviewed, I agree with documented findings and plan of care. Patient was seen and examined. Past Medical History Past Medical History: Dementia, Hyperlipidemia, Hypertension History of Any Multi-Drug Resistant Organisms: None Reported Past Surgical History: Bladder Surgery, Hysterectomy, Orthopedic Surgery Additional Past Surgical History / Comment(s): thyroid Past Anesthesia/Blood Transfusion Reactions: No Reported Reaction Past Psychological History: Anxiety Smoking Status: Never smoker Past Alcohol Use History: None Reported Past Drug Use History: None Reported - Past Family History Father Family Medical History: Unable to Obtain Medications and Allergies Home Medications Medication Instructions Recorded Confirmed Type ALPRAZolam [Xanax] 0.25 mg PO TID PRN 11/03/17 10/21/19 History Aspirin EC [Ecotrin Low Dose] 81 mg PO HS 11/03/17 10/21/19 History Citalopram Hydrobromide [CeleXA] 10 mg PO DAILY 11/03/17 10/21/19 History Donepezil [Aricept] 10 mg PO BID 11/03/17 10/21/19 History Metoprolol Tartrate [Lopressor] 12.5 mg PO DAILY 11/03/17 10/21/19 History Simvastatin [Zocor] 20 mg PO HS 11/03/17 10/21/19 History amLODIPine [Norvasc] 2.5 mg PO DAILY 11/03/17 10/21/19 History Bimatoprost [Lumigan .01% Ophth 1 drop BOTH EYES HS 10/21/19 10/21/19 History Soln] Docusate [Colace] 100 mg PO DAILY 10/21/19 10/21/19 History Memantine HCl [Memantine HCl ER] 14 mg PO DAILY 10/21/19 10/21/19 History Ubidecarenone [Co Q-10] 400 mg PO HS 10/21/19 10/21/19 History Allergies Allergy/AdvReac Type Severity Reaction Status Date / Time No Known Allergies Allergy Verified 10/21/19 14:22 Physical Exam Vitals: Vital Signs Temp Pulse Resp BP Pulse Ox 10/22/19 07:05 68 14 10/22/19 07:00 97.9 F 65 16 135/81 93 L 10/22/19 00:20 97.6 F 68 14 148/81 95 10/21/19 20:10 98.4 F 83 18 149/82 94 L 10/21/19 16:00 16 10/21/19 15:30 97.7 F 73 16 147/81 97 Intake and Output 10/21/19 10/22/19 10/22/19 22:59 06:59 14:59 Other: Voiding Method Diaper Diaper # Voids 1 1 Weight 77.111 kg Results 10/22/19 06:53 10/22/19 06:53 Cardiac Enzymes 10/21/19 10/22/19 Range/Units 18:28 01:21 Troponin I <0.012 <0.012 (0.000-0.034) ng/mL CBC 10/22/19 Range/Units 06:53 WBC 8.1 (3.8-10.6) k/uL RBC 4.68 (3.80-5.40) m/uL Hgb 14.2 (11.4-16.0) gm/dL Hct 43.3 (34.0-46.0) % Plt Count 221 (150-450) k/uL Comprehensive Metabolic Panel 10/22/19 Range/Units 06:53 Sodium 142 (137-145) mmol/L Potassium 3.7 (3.5-5.1) mmol/L Chloride 109 H (98-107) mmol/L Carbon Dioxide 28 (22-30) mmol/L BUN 13 (7-17) mg/dL Creatinine 0.81 (0.52-1.04) mg/dL Glucose 113 H (74-99) mg/dL Calcium 9.4 (8.4-10.2) mg/dL Current Medications Generic Name Dose Route Start Last Admin Trade Name William PRN Reason Stop Dose Admin Alprazolam 0.25 mg 10/21/19 14:34 10/22/19 12:22 Xanax PO 0.25 mg TID PRN Administration Anxiety Amlodipine Besylate 2.5 mg 10/22/19 09:00 10/22/19 09:04 Norvasc PO 2.5 mg DAILY MARINO Administration Aspirin 81 mg 10/21/19 21:00 10/21/19 21:53 Aspirin PO 81 mg HS MARINO Administration Atorvastatin Calcium 10 mg 10/21/19 21:00 10/21/19 21:53 Lipitor PO 10 mg HS MARINO Administration Citalopram Hydrobromide 10 mg 10/22/19 09:00 Celexa PO DAILY MARINO Docusate Sodium 100 mg 10/22/19 09:00 10/22/19 09:04 Colace PO 100 mg DAILY MARINO Administration Donepezil HCl 10 mg 10/21/19 21:00 10/22/19 09:04 Aricept PO 10 mg BID MARINO Administration Sodium Chloride 1,000 mls @ 75 mls/hr 10/21/19 14:45 10/22/19 03:08 Saline 0.9% IV 75 mls/hr .[id number] MARINO Administration Latanoprost 1 drops 10/22/19 21:00 Xalatan 0.005% BOTH EYES HS MARINO Memantine 5 mg 10/22/19 09:00 10/22/19 09:04 Namenda PO 5 mg BID MARINO Administration Metoprolol Tartrate 12.5 mg 10/22/19 09:00 10/22/19 09:04 Lopressor PO 12.5 mg DAILY MARINO Administration Naloxone HCl 0.2 mg 10/21/19 14:31 Narcan IV Q2M PRN Opioid Reversal Intake and Output 10/21/19 10/22/19 10/22/19 22:59 06:59 14:59 Other: Voiding Method Diaper Diaper # Voids 1 1 Weight 77.111 kg 10/22/19 06:53 10/22/19 06:53
[2019-10-22] MEDS: CITALOPRAM HYDROBROMIDE 10 MG TAB PO SCH (16:49)
[2019-10-22] MEDS: LATANOPROST 0.005% OPHTH DROPS 2.5 ML BTL BOTH EYES SCH (21:24)
[2019-10-22] MEDS: ASPIRIN 81 MG PO SCH (21:24)
[2019-10-22] MEDS: ATORVASTATIN 10 MG TAB PO SCH (21:24)
[2019-10-23] MEDS: SODIUM CHLORIDE 0.9% 1,000 ML IV SCH ×3 (08:29→21:24)
[2019-10-23] MEDS: METOPROLOL TARTRATE 12.5 MG TAB PO SCH ×2 (09:07→15:40)
[2019-10-23] MEDS: DONEPEZIL 10 MG TAB PO SCH ×3 (09:07→20:54)
[2019-10-23] MEDS: amLODIPine 2.5 MG TAB PO SCH ×2 (09:07→15:39)
[2019-10-23] MEDS: FAMOTIDINE 20 MG TAB PO SCH ×2 (09:07→15:39)
[2019-10-23] MEDS: ENOXAPARIN 40 MG/0.4 ML SYRINGE SQ SCH ×2 (09:07→15:39)
[2019-10-23] MEDS: DOCUSATE 100 MG CAP PO SCH ×2 (09:07→15:39)
[2019-10-23] MEDS: MEMANTINE 5 MG TAB PO SCH ×3 (09:07→20:54)
[2019-10-23] MEDS: CITALOPRAM HYDROBROMIDE 10 MG TAB PO SCH ×2 (09:07→15:39)
--- NOTE | 2019-10-23 11:58 | ECHOF ---
Referral Reason:LVF MEASUREMENTS -------- HEIGHT: 167.6 cm WEIGHT: 77.1 kg BP: 146/75 IVSd: 1.5 cm (0.6 - 1.1) LVIDd: 4.1 cm (3.9 - 5.3) LVPWd: 1.6 cm (0.6 - 1.1) IVSs: 2.0 cm LVIDs: 3.0 cm LVPWs: 2.3 cm Ao Diam: 2.8 cm (2.0 - 3.7) AV Cusp: 2.1 cm (1.5 - 2.6) MV EXCURSION: 15.135 mm (> 18.000) MV EF SLOPE: 63 mm/s (70 - 150) EPSS: 0.4 cm MV E Ry: 0.47 m/s MV DecT: 257 ms MV A Ry: 0.57 m/s MV E/A Ratio: 0.82 RAP: 5.00 mmHg RVSP: 22.55 mmHg FINDINGS -------- Sinus rhythm. This was a technically difficult study with suboptimal apical views. The left ventricular size is normal. There is moderate concentric left ventricular hypertrophy. O verall left ventricular systolic function is normal with, an EF between 55 - 60 %. The RV was not well visualized. The left atrial size is normal. The right atrium was not well visualized. 5.0mg of Lumason was utilized for enhancement of images Interatrial and interventricular septum intact. The aortic valve is trileaflet and appears structurally normal. There is no evidence of aortic regu rgitation. There is no evidence of aortic stenosis. Mild mitral regurgitation is present. Mild tricuspid regurgitation present. There is no evidence of pulmonary hypertension. The right v entricular systolic pressure, as measured by Doppler, is 22.55mmHg. There is no pulmonic regurgitation present. The aortic root size is normal. IVC Not well visulized. There is a small, generalized pericardial effusion present. CONCLUSIONS -------- 1. Sinus rhythm. 2. This was a technically difficult study with suboptimal apical views. 3. The left ventricular size is normal. 4. There is moderate concentric left ventricular hypertrophy. 5. Overall left ventricular systolic function is normal with, an EF between 55 - 60 %. 6. The RV was not well visualized. 7. The left atrial size is normal. 8. The right atrium was not well visualized. 9. 5.0mg of Lumason was utilized for enhancement of images 10. Interatrial and interventricular septum intact. 11. The aortic valve is trileaflet and appears structurally normal. 12. There is no evidence of aortic regurgitation. 13. There is no evidence of aortic stenosis. 14. Mild mitral regurgitation is present. 15. Mild tricuspid regurgitation present. 16. There is no evidence of pulmonary hypertension. 17. The right ventricular systolic pressure, as measured by Doppler, is 22.55mmHg. 18. There is no pulmonic regurgitation present. 19. The aortic root size is normal. 20. IVC Not well visulized. 21. There is a small, generalized pericardial effusion present. CAMP COUNSELOR: Marcelina Agosto RDCS
--- NOTE | 2019-10-23 12:08 | P.PN ---
Subjective This is a pleasant 84 showed female past medical history significant for hypertension, dyslipidemia and advanced dementia. She is seen and examined sitting up in bed in no acute distress per she is alert and oriented to name only. She denies symptoms of chest discomfort, shortness of breath, dizziness or palpitations. Telemetry tracings have been unremarkable. Blood pressure 142/91 heart rate 77 afebrile maintaining oxygen saturation on room air. Laboratory data reviewed, CBC unremarkable, sodium 142, potassium 3.7, creatinine 0.81. Echocardiogram reveals preserved LV systolic function with ejection fraction 55-60%, mild MR, mild TR and a small generalized pericardial effusion noted. The patient is refusing all morning medications and orthostatic vital signs. GENERAL: Well-appearing, well-nourished and in no acute distress. NECK: Supple without JVD or thyromegaly. LUNGS: Breath sounds clear to auscultation bilaterally. Respiration equal and unlabored. No wheezes, rales or rhonchi. HEART: Regular rate and rhythm without murmurs, rubs or gallops. S1 and S2 heard. EXTREMITIES: Normal range of motion, no edema. No clubbing or cyanosis. Peripheral pulses intact. ASSESSMENT Syncopal episode most likely vasovagal following a bowel movement Advanced dementia Hypertension Dyslipidemia PLAN Overall stable from a cardiac perspective. No acute arrhythmias were noted. Normal LV systolic function. Ongoing medical management and evaluation, we will continue to follow as needed. Nurse Practitioner note has been reviewed, I agree with a documented findings and plan of care. Patient was seen and examined. Objective - Vital Signs Vital signs: Vital Signs Temp 98.1 F 10/23/19 07:00 Pulse 77 10/23/19 07:00 Resp 16 10/23/19 07:00 BP 142/91 10/23/19 07:00 Pulse Ox 95 10/23/19 07:00 Intake & Output 10/22/19 10/23/19 10/23/19 18:59 06:59 18:59 Intake Total 240 Output Total 1000 Balance 240 -1000 Intake: Oral 240 Output: Urine 1000 Straight 1000 Other: Voiding Method Diaper Diaper Diaper Incontinent # Voids 1 - Labs CBC & Chem 7: 10/22/19 06:53 10/22/19 06:53
--- NOTE | 2019-10-23 14:32 | P.PN ---
Subjective Progress Note Date: 10/23/19 This is an 84-year-old female patient of Dr. Garcia with past medical history of hypertension, hyperlipidemia and advanced dementia. Patient has been seen in the past by Dr. Wang for dementia, neuropathy with abnormal gait imbalance and had outpatient workup a few years ago. Patient was brought in by EMS to [facility] emergency center apparently she was on the toilet and her was trying to get her off the toilet however patient was too weak ended up having a syncopal episode. Patient was propped up on the toilet and EMS was called. Upon arrival, patient was found to be unconscious which lasted for about 30 minutes. Patient was placed on the ground and she spontaneously awoke. There apparently was no seizure-like activity. Patient had a brown stool in the toilet. No blood noted. Patient was found to be afebrile, heart rate 56, blood pressure 113/58, pulse ox 97% on room air. EKG was sinus bradycardia with first-degree block. No acute ST changes. CBC was unremarkable, electrolytes, renal function and liver function tests all within normal limits, blood sugar 192, troponin negative. Urinalysis was cloudy, nitrate and leukoesterase negative. CAT scan of brain showed mild to moderate atrophy and patchy changes of chronic small vessel ischemic change. No acute intracranial abnormality. Mild to moderate chronic ethmoid sinus disease. Chest x-ray reveals mild to moderate cardiomegaly and chronic gradual changes. Some patchy density at the right base represents atelectasis. Carotid ultrasound did not show any hemodynamically significant stenosis. [facility] and cardiology consult requested. No history is able to be obtained from the patient. Sitter is at bedside. Patient resides at [facility] with her . 10/23: Patient is resting in bed sleeping, she is arousable to verbal stimuli. She states she is tired and wants to sleep. She refused to take her morning medications today. She is eating very little. We will add in protein supplement. Cardiology has signed off her case and following on an as-needed basis. There were no acute arrhythmias noted. Echocardiogram reveals preserved LV systolic function with ejection fraction 55-60%, mild MR, mild TR and a small generalized pericardial effusion noted. PT and OT are in place and recommended subacute rehab at 24 hour care. Case management/social welfare clerk following for subacute rehab. Review of Systems ROS unobtainable: due to mental status Objective - Vital Signs Vital signs: Vital Signs Temp 98.1 F 10/23/19 07:00 Pulse 77 10/23/19 07:00 Resp 16 10/23/19 07:00 BP 142/91 10/23/19 07:00 Pulse Ox 95 10/23/19 07:00 Intake & Output 10/22/19 10/23/19 10/23/19 18:59 06:59 18:59 Intake Total 240 Output Total 1000 Balance 240 -1000 Intake: Oral 240 Output: Urine 1000 Straight 1000 Other: Voiding Method Diaper Diaper # Voids 1 - Exam Gen: This is an 84-year-old female. Patient is resting in bed and appears to be comfortable and in no acute distress. HEENT: Head is atraumatic, normocephalic. Pupils equal, round. Sclerae is anicteric. NECK: Supple. No JVD. No lymphadenopathy. No thyromegaly. LUNGS: Clear to auscultation. No wheezes or rhonchi. No intercostal retractions. HEART: Regular rate and rhythm. No murmur. ABDOMEN: Soft. Bowel sounds are present. No masses. No tenderness. EXTREMITIES: No pedal edema. No calf tenderness. NEUROLOGICAL: Patient is awake, alert to person only. Patient is able to follow instructions. - Labs CBC & Chem 7: 10/22/19 06:53 10/22/19 06:53 Assessment and Plan Plan: 1. Syncopal episode most likely vasovagal. Cardiology consult appreciated. Echocardiogram as above. gambling monitor without arrhythmias. 2. Advanced dementia. Continue Aricept 10 mg twice daily, Namenda 5 mg twice daily. 3. Hypertension. Continue Norvasc 2.5 mg daily, Lopressor 12.5 mg daily. 4. Hyperlipidemia. Continue Lipitor 10 mg daily. 5. Generalized anxiety disorder. Continue Xanax 0.25 mg 3 times daily as needed. 6. GI prophylaxis. Pepcid. 7. DVT prophylaxis. Lovenox. Discharge plan: Subacute rehab. PT and OT following. Impression and plan of care have been directed as dictated by the signing physician. Karen Saravia nurse practitioner acting as scribe for signing physician.
[2019-10-23] MEDS: ATORVASTATIN 10 MG TAB PO SCH (20:54)
[2019-10-23] MEDS: ASPIRIN 81 MG PO SCH (20:54)
[2019-10-23] MEDS: LATANOPROST 0.005% OPHTH DROPS 2.5 ML BTL BOTH EYES SCH (20:54)
[2019-10-24] MEDS: ALPRAZolam 0.25 MG TAB PO PRN (02:53)
[2019-10-24] MEDS ORDERED: ALPRAZolam 0.25 MG TAB PO PRN (10:14)
[2019-10-24 11:30] VITALS: BMI 27.4
[2019-10-24] MEDS: FAMOTIDINE 20 MG TAB PO SCH (13:40)
[2019-10-24] MEDS: METOPROLOL TARTRATE 12.5 MG TAB PO SCH (13:40)
[2019-10-24] MEDS: SODIUM CHLORIDE 0.9% 1,000 ML IV SCH ×2 (13:41→15:09)
[2019-10-24] MEDS: ENOXAPARIN 40 MG/0.4 ML SYRINGE SQ SCH (13:41)
[2019-10-24] MEDS: DONEPEZIL 10 MG TAB PO SCH ×2 (13:41→20:52)
[2019-10-24] MEDS: amLODIPine 2.5 MG TAB PO SCH (13:41)
[2019-10-24] MEDS: MEMANTINE 5 MG TAB PO SCH ×2 (13:41→20:52)
[2019-10-24] MEDS: CITALOPRAM HYDROBROMIDE 10 MG TAB PO SCH (13:41)
[2019-10-24] MEDS: DOCUSATE 100 MG CAP PO SCH (13:41)
--- NOTE | 2019-10-24 15:01 | P.PN ---
Subjective Progress Note Date: 10/24/19 This is an 84-year-old female patient of Dr. Garcia with past medical history of hypertension, hyperlipidemia and advanced dementia. Patient has been seen in the past by Dr. Wang for dementia, neuropathy with abnormal gait imbalance and had outpatient workup a few years ago. Patient was brought in by EMS to [facility] emergency center apparently she was on the toilet and her was trying to get her off the toilet however patient was too weak ended up having a syncopal episode. Patient was propped up on the toilet and EMS was called. Upon arrival, patient was found to be unconscious which lasted for about 30 minutes. Patient was placed on the ground and she spontaneously awoke. There apparently was no seizure-like activity. Patient had a brown stool in the toilet. No blood noted. Patient was found to be afebrile, heart rate 56, blood pressure 113/58, pulse ox 97% on room air. EKG was sinus bradycardia with first-degree block. No acute ST changes. CBC was unremarkable, electrolytes, renal function and liver function tests all within normal limits, blood sugar 192, troponin negative. Urinalysis was cloudy, nitrate and leukoesterase negative. CAT scan of brain showed mild to moderate atrophy and patchy changes of chronic small vessel ischemic change. No acute intracranial abnormality. Mild to moderate chronic ethmoid sinus disease. Chest x-ray reveals mild to moderate cardiomegaly and chronic gradual changes. Some patchy density at the right base represents atelectasis. Carotid ultrasound did not show any hemodynamically significant stenosis. [facility] and cardiology consult requested. No history is able to be obtained from the patient. Sitter is at bedside. Patient resides at [facility] with her . 10/23: Patient is resting in bed sleeping, she is arousable to verbal stimuli. She states she is tired and wants to sleep. She refused to take her morning medications today. She is eating very little. We will add in protein supplement. Cardiology has signed off her case and following on an as-needed basis. There were no acute arrhythmias noted. Echocardiogram reveals preserved LV systolic function with ejection fraction 55-60%, mild MR, mild TR and a small generalized pericardial effusion noted. PT and OT are in place and recommended subacute rehab at 24 hour care. Case management/7th grade social studies teacher following for subacute rehab. 10/24: The patient has had no arrhythmias and cardiology has signed off. Telemetry will be discontinued. Patient required straight cath 2 during the night and then Gómez catheter was placed. She had had return of 2400 mL. Patient has been confused and angry with the staff. She has refused to eat. Xanax will be decreased frequency to only at bedtime. Social work has been working with for discharge plan. He is currently looking at [facility]. Review of Systems ROS unobtainable: due to mental status Objective - Vital Signs Vital signs: Vital Signs Temp 96.4 F L 10/24/19 07:00 Pulse 63 10/24/19 07:00 Resp 16 10/24/19 07:00 BP 127/75 10/24/19 07:00 Pulse Ox 96 10/24/19 07:00 Intake & Output 10/23/19 10/24/19 10/24/19 18:59 06:59 18:59 Intake Total 1000 Output Total 2457 2200 Balance -2457 -1200 Intake: Intake, IV Titration 1000 Amount Sodium Chloride 0.9% 1, 1000 000 ml @ 100 mls/hr IV . Q10H MARINO Rx#:[id number] Output: Urine 1700 1600 Straight 1700 1600 Post Void Residual 757 600 Other: Voiding Method Diaper Indwelling Catheter Incontinent # Voids 0 0 - Exam Gen: This is an 84-year-old female. Patient is resting in bed and appears to be comfortable and in no acute distress. HEENT: Head is atraumatic, normocephalic. Pupils equal, round. Sclerae is anicteric. NECK: Supple. No JVD. No lymphadenopathy. No thyromegaly. LUNGS: Clear to auscultation. No wheezes or rhonchi. No intercostal retractions. HEART: Regular rate and rhythm. No murmur. ABDOMEN: Soft. Bowel sounds are present. No masses. No tenderness. EXTREMITIES: No pedal edema. No calf tenderness. NEUROLOGICAL: Patient awakens to verbal stimuli. - Labs CBC & Chem 7: 10/22/19 06:53 10/22/19 06:53 Assessment and Plan Plan: 1. Syncopal episode most likely vasovagal. Cardiology consult appreciated. Echocardiogram as above. bus driver/monitor without arrhythmias. 2. Advanced dementia. Continue Aricept 10 mg twice daily, Namenda 5 mg twice daily. 3. Hypertension. Continue Norvasc 2.5 mg daily, Lopressor 12.5 mg daily. 4. Hyperlipidemia. Continue Lipitor 10 mg daily. 5. Generalized anxiety disorder. Continue Xanax 0.25 mg reduced to at bedtime only as needed. 6. GI prophylaxis. Pepcid. 7. DVT prophylaxis. Lovenox. Discharge plan: [facility]. Social work is working with patients for discharge plan. He is visiting [facility] today. Impression and plan of care have been directed as dictated by the signing physician. Karen Saravia nurse practitioner acting as scribe for signing physician.
[2019-10-24] MEDS: TAMSULOSIN 0.4 MG CAP.ER.24H PO SCH (15:09)
[2019-10-24] MEDS: LATANOPROST 0.005% OPHTH DROPS 2.5 ML BTL BOTH EYES SCH (20:52)
[2019-10-24] MEDS: ASPIRIN 81 MG PO SCH (20:52)
[2019-10-24] MEDS: ATORVASTATIN 10 MG TAB PO SCH (20:52)
[2019-10-25] MEDS: DOCUSATE 100 MG CAP PO SCH ×2 (08:16→11:35)
[2019-10-25] MEDS: METOPROLOL TARTRATE 12.5 MG TAB PO SCH (08:16)
[2019-10-25] MEDS: amLODIPine 2.5 MG TAB PO SCH (08:16)
[2019-10-25] MEDS: TAMSULOSIN 0.4 MG CAP.ER.24H PO SCH (08:16)
[2019-10-25] MEDS: FAMOTIDINE 20 MG TAB PO SCH (08:16)
[2019-10-25] MEDS: MEMANTINE 5 MG TAB PO SCH (08:16)
[2019-10-25] MEDS: DONEPEZIL 10 MG TAB PO SCH (08:16)
[2019-10-25] MEDS: ENOXAPARIN 40 MG/0.4 ML SYRINGE SQ SCH (08:16)
[2019-10-25] MEDS: LATANOPROST 0.005% OPHTH DROPS 2.5 ML BTL BOTH EYES SCH (08:21)
[2019-10-25] MEDS: CITALOPRAM HYDROBROMIDE 10 MG TAB PO SCH (08:22)
[2019-10-25 09:02] VITALS: RESP 16
--- NOTE | 2019-10-25 10:40 | P.DS ---
Providers Date of admission: 10/22/19 14:30 Expected date of discharge: 10/25/19 Attending physician: Hung Pina Consults: 10/21/19 14:32 Consult Physician Urgent Consulting Provider: [facility] Consult Reason/Comments: acute syncope Do you want consulting provider notified?: Yes Primary care physician: Jostin Garcia [facility] Course: This is an 84-year-old female patient of Dr. Garcia with past medical history of hypertension, hyperlipidemia and advanced dementia. Patient has been seen in the past by Dr. Wang for dementia, neuropathy with abnormal gait imbalance and had outpatient workup a few years ago. Patient was brought in by EMS to [facility] emergency center apparently she was on the toilet and her was trying to get her off the toilet however patient was too weak ended up having a syncopal episode. Patient was propped up on the toilet and EMS was called. Upon arrival, patient was found to be unconscious which lasted for about 30 minutes. Patient was placed on the ground and she spontaneously awoke. There apparently was no seizure-like activity. Patient had a brown stool in the toilet. No blood noted. Patient was found to be afebrile, heart rate 56, blood pressure 113/58, pulse ox 97% on room air. EKG was sinus bradycardia with first-degree block. No acute ST changes. CBC was unremarkable, electrolytes, renal function and liver function tests all within normal limits, blood sugar 192, troponin negative. Urinalysis was cloudy, nitrate and leukoesterase negative. CAT scan of brain showed mild to moderate atrophy and patchy changes of chronic small vessel ischemic change. No acute intracranial abnormality. Mild to moderate chronic ethmoid sinus disease. Chest x-ray reveals mild to moderate cardiomegaly and chronic gradual changes. Some patchy density at the right base represents atelectasis. Carotid ultrasound did not show any hemodynamically significant stenosis. Patient admitted to the [facility] floor and cardiology consult requested. No history is able to be obtained from the patient. Sitter is at bedside. Patient resides at [facility] with her . 10/23: Patient is resting in bed sleeping, she is arousable to verbal stimuli. She states she is tired and wants to sleep. She refused to take her morning medications today. She is eating very little. We will add in protein supplement. Cardiology has signed off her case and following on an as-needed basis. There were no acute arrhythmias noted. Echocardiogram reveals preserved LV systolic function with ejection fraction 55-60%, mild MR, mild TR and a small generalized pericardial effusion noted. PT and OT are in place and recommended subacute rehab at 24 hour care. Case management/vp digital marketing social media and crm following for subacute rehab. 10/24: The patient has had no arrhythmias and cardiology has signed off. Telemetry will be discontinued. Patient required straight cath 2 during the night and then Gómez catheter was placed. She had had return of 2400 mL. Patient has been confused and angry with the staff. She has refused to eat. Xanax will be decreased frequency to only at bedtime. Social work has been working with for discharge plan. He is currently looking at [facility]. 10/25: Patient continues to be confused which is her baseline. She was able to eat 100% of her lunch yesterday, 75% of dinner and 50% of breakfast. She did eat applesauce with her pills this morning and drinker Ensure. Patient has been afebrile, heart rate 98, blood pressure 180/89, pulse ox 100% on room air. Disc harge plan is to [facility]. Patient will be discharged today once all arrangements are completed. Discharge diagnoses: 1. Syncopal episode most likely vasovagal from dehydration due to poor oral intake. 2. Advanced dementia. 3. Hypertension. 4. Hyperlipidemia. 5. Generalized anxiety disorder. Discharge plan: [facility]. Referral placed to [facility] palliative care. Impression and plan of care have been directed as dictated by the signing physician. Karen Saravia nurse practitioner acting as scribe for signing physician. Patient Condition at Discharge: Good Plan - Discharge Summary Discharge Rx Participant: Yes New Discharge Prescriptions: New Tamsulosin [Flomax] 0.4 mg PO PC-BRKFST #30 cap.er.24h Continue Donepezil [Aricept] 10 mg PO BID amLODIPine [Norvasc] 2.5 mg PO DAILY Simvastatin [Zocor] 20 mg PO HS Metoprolol Tartrate [Lopressor] 12.5 mg PO DAILY Citalopram Hydrobromide [CeleXA] 10 mg PO DAILY Aspirin EC [Ecotrin Low Dose] 81 mg PO HS Ubidecarenone [Co Q-10] 400 mg PO HS Docusate [Colace] 100 mg PO DAILY Memantine HCl [Memantine HCl ER] 14 mg PO DAILY Bimatoprost [Lumigan .01% Ophth Soln] 1 drop BOTH EYES HS Changed ALPRAZolam [Xanax] 0.25 mg PO HS PRN #0 PRN Reason: Anxiety Discharge Medication List Aspirin EC [Ecotrin Low Dose] 81 mg PO HS 11/03/17 [History] Citalopram Hydrobromide [CeleXA] 10 mg PO DAILY 11/03/17 [History] Donepezil [Aricept] 10 mg PO BID 11/03/17 [History] Metoprolol Tartrate [Lopressor] 12.5 mg PO DAILY 11/03/17 [History] Simvastatin [Zocor] 20 mg PO HS 11/03/17 [History] amLODIPine [Norvasc] 2.5 mg PO DAILY 11/03/17 [History] Bimatoprost [Lumigan .01% Ophth Soln] 1 drop BOTH EYES HS 10/21/19 [History] Docusate [Colace] 100 mg PO DAILY 10/21/19 [History] Memantine HCl [Memantine HCl ER] 14 mg PO DAILY 10/21/19 [History] Ubidecarenone [Co Q-10] 400 mg PO HS 10/21/19 [History] ALPRAZolam [Xanax] 0.25 mg PO HS PRN #0 10/25/19 [Rx] Tamsulosin [Flomax] 0.4 mg PO PC-BRKFST #30 cap.er.24h 10/25/19 [Rx] Follow up Appointment(s)/Referral(s): Jostin Garcia MD [Primary Care Provider] - 1 Week (Office will call patient with appoinment.) [facility], [NON-STAFF] - As Needed (palliative care) Discharge Disposition: HOME WITH HOME HEALTH SERVICES
[2019-10-25 15:20] VITALS: BP 110/67; PULSE 78; TEMP 97.9
--- NOTE | 2019-10-27 10:17 | CDI ---
Documentation Clarification Form Date: 10/27/19 From: Lucia Marrufo Phone: If you have a question about this query, please contact Carmencita Adams, De[employer] at [phone] between 8am and 5pm. Admit Date: 10/22/19 Discharge Date:10/25/19 Patient Name: Dede Ritter Visit Number: [id number] ATTENTION: The Clinical Documentation Specialists (CDI) and [facility] Coding Staff appreciate your assistance in clarifying documentation. Please respond to the clarification below the line at the bottom and electronically sign. The CDI & [facility] Coding staff will review the response and follow-up if needed. Please note: Queries are made part of the Legal Health Record. If you have any questions, please contact the author of this message via ITS. Dear Dr. Pina Altered Mental Status was documented in the ED note. History/Risk Factors: Dementia, bradycardia, dehydration Clinical Indicators: Confused and angry with staff Labs: Glucose 192, Urine: cloudy, 1+ protein, casts 9, mucus rare X Ray: Chest: Similar mild to moderate cardiomegaly and chronic parenchymal changes. Some patchy density at the right base likely represents atelectasis. CT: Brain: Mild to moderate atrophy and patchy changes of chronic small vessel ischemic disease. No acute intracranial abnormality seen. Mild to moderate chronic ethmoid sinus disease. Treatment: 1 liter IV fluid bolus then at 100 mls/hr, In your professional opinion, please clarify the etiology of the Altered Mental Status, if known. Delirium (specify cause): Dementia (if know, specify Type and if with/without Behavioral Disturbance) Encephalopathy (specify Type and Underlying Medical Illness) Other condition (please specify) Unable to determine ___Vascular dementia with behavioral disturbances ____ MTDD
== END 2019-10-25 18:27 | disposition home health service (06) | DRG 641 ==
LOC: EC 11:51 → 4SSUR 14:31 → OBSVTOIN 10-22 14:30
PROVIDERS: ADMIT Internal Medicine; ATTEND Internal Medicine
DX: E86.0 Dehydration (principal); I31.3 Pericardial effusion (noninflammatory); J98.11 Atelectasis; F01.51 Vascular dementia, unspecified severity, with behavioral disturbance; R55 Syncope and collapse; I11.9 Hypertensive heart disease without heart failure; E78.5 Hyperlipidemia, unspecified; F41.1 Generalized anxiety disorder; J32.2 Chronic ethmoidal sinusitis; R26.89 Other abnormalities of gait and mobility; G62.9 Polyneuropathy, unspecified; R00.1 Bradycardia, unspecified; I44.0 Atrioventricular block, first degree; R32 Unspecified urinary incontinence; Z79.899 Other long term (current) drug therapy; Z79.82 Long term (current) use of aspirin; Z90.710 Acquired absence of both cervix and uterus; Z87.440 Personal history of urinary (tract) infections
CPT/HCPCS: 36415; 70450; 71046; 80048; 80053; 81001; 82550; 84484; 85025; 85610; 85730; 93005; 93306; 93880; 96361; 96374; 99285

== ENCOUNTER 2020-08-12 13:57 | Observation (INO) | payer MEDICARE, OTHER ==
[2020-08-12] MEDS ORDERED: SODIUM CHLORIDE 0.9% 1,000 ML IV STA (14:04)
--- NOTE | 2020-08-12 14:11 | ED ---
General Adult HPI - General Source: patient, EMS, RN notes reviewed Mode of arrival: EMS Limitations: altered mental status <Kristian Londono - Last Filed: 08/12/20 14:15> <Lorenzo Mcpherson - Last Filed: 08/12/20 16:51> - General Stated complaint: altered mental status Time Seen by Provider: 08/12/20 13:59 - History of Present Illness Initial comments: Patient is a pleasant 85-year-old female presenting to the emergency department for altered mental status. history is limited. Patient is relatively nonverbal except for her name. Patient was found altered approximate 30 minutes ago. Unclear if this was witnessed. Unclear patient has history of similar symptoms previously. (Kristian Londono) patient care sent out to me by previous shift physician Dr. Londono. Briefly, patient is a 85-year-old female presents with acute altered mental status. It is unclear when patient's symptoms began. She does have a history of hypertension. Code stroke was not paged by previous shift physician. He was sent out to me to follow up with pending labs, imaging to determine final disposition.Laboratory evaluation obtained. CBC unremarkable. Coag panel is negative. Metabolic panel is unremarkable. Urinalysis shows 8 white blood cells. Computed tomography scan of the brain is unremarkable for any acute processes. Chest x-ray shows possible left lower lobe atelectasis versus pneumonia. Considering patient has some white blood cells and concerning x-ray we'll give patient antibiotics. is at bedside reports that patient has history of dementia however has never had any incidences like this in the past. There is concern for acute metabolic encephalopathy. Patient appears awake and will look at you however will not follow commands and she does not appear to be in acute distress. (Lorenzo Mcpherson) - Related Data Home Medications Medication Instructions Recorded Confirmed Aspirin EC [Ecotrin Low Dose] 81 mg PO HS 11/03/17 10/21/19 Citalopram Hydrobromide [CeleXA] 10 mg PO DAILY 11/03/17 10/21/19 Donepezil [Aricept] 10 mg PO BID 11/03/17 10/21/19 Metoprolol Tartrate [Lopressor] 12.5 mg PO DAILY 11/03/17 10/21/19 Simvastatin [Zocor] 20 mg PO HS 11/03/17 10/21/19 amLODIPine [Norvasc] 2.5 mg PO DAILY 11/03/17 10/21/19 Bimatoprost [Lumigan .01% Ophth 1 drop BOTH EYES HS 10/21/19 10/21/19 Soln] Docusate [Colace] 100 mg PO DAILY 10/21/19 10/21/19 Memantine HCl [Memantine HCl ER] 14 mg PO DAILY 10/21/19 10/21/19 Ubidecarenone [Co Q-10] 400 mg PO HS 10/21/19 10/21/19 Previous Rx's Medication Instructions Recorded ALPRAZolam [Xanax] 0.25 mg PO HS PRN #0 10/25/19 Tamsulosin [Flomax] 0.4 mg PO PC-BRKFST #30 cap.er.24h 10/25/19 Allergies Allergy/AdvReac Type Severity Reaction Status Date / Time No Known Allergies Allergy Verified 10/21/19 14:22 Review of Systems ROS Other: All systems not noted in ROS Statement are negative. Limitations: ROS unobtainable due to patients medical condition <Kristian Londono - Last Filed: 08/12/20 14:15> ROS Other: All systems not noted in ROS Statement are negative. <Lorenzo Mcpherson - Last Filed: 08/12/20 16:51> ROS Statement: Those systems with pertinent positive or pertinent negative responses have been documented in the HPI. Past Medical History Past Medical History: Dementia, Hyperlipidemia, Hypertension History of Any Multi-Drug Resistant Organisms: None Reported Past Surgical History: Bladder Surgery, Hysterectomy, Orthopedic Surgery Additional Past Surgical History / Comment(s): thyroid Past Anesthesia/Blood Transfusion Reactions: No Reported Reaction Past Psychological History: Anxiety Past Alcohol Use History: None Reported Past Drug Use History: None Reported - Past Family History Father Family Medical History: Unable to Obtain <Kristian Londono - Last Filed: 08/12/20 14:15> General Exam Limitations: altered mental status, physical limitation General appearance: alert Head exam: Present: normocephalic Eye exam: Present: normal appearance, other (. Patientwill not follow extraocular muscles) Pupils: Present: mydriatic (but reactive) ENT exam: Present: normal oropharynx Neck exam: Present: normal inspection Respiratory exam: Present: normal lung sounds bilaterally Cardiovascular Exam: Present: regular rate, normal rhythm GI/Abdominal exam: Present: soft. Absent: tenderness Extremities exam: Present: normal inspection. Absent: pedal edema, calf te nderness Neurological exam: Present: alert Expanded Neurological exam: Present: protecting the airway Patient oriented to: Present: person Motor strength exam: RUE: 4, LUE: 4, RLE: 4, LLE: 4 Eye Response: (3) open to voice Motor Response: (6) obeys commands (with persistent reminding) Verbal Response: (3) inappropriate words Psychiatric exam: Present: flat affect, other (limited communication) Skin exam: Absent: rash <Kristian Londono - Last Filed: 08/12/20 14:15> Course Vital Signs 08/12/20 08/12/20 14:00 15:34 Temperature 97.4 F L Pulse Rate 70 70 Respiratory 18 18 Rate Blood Pressure 121/77 O2 Sat by Pulse 91 L 100 Oximetry EKG Findings - EKG Comments: EKG Findings:: normal sinus rhythm 64. NE 196. QRS 86. QT 450. QTC 464. Left axis. Inferior Q waves. No acute ST change. <Kristian Londono - Last Filed: 08/12/20 14:15> Medical Decision Making - Lab Data Result diagrams: 08/12/20 14:24 08/12/20 14:24 <Lorenzo Mcpherson - Last Filed: 08/12/20 16:51> - Medical Decision Making patient care sent out to me by previous shift physician Dr. Londono. Briefly, patient is a 85-year-old female presents with acute altered mental status. It is unclear when patient's symptoms began. She does have a history of hypertension. Code stroke was not paged by previous shift physician. He was sent out to me to follow up with pending labs, imaging to determine final disposition.Laboratory evaluation obtained. CBC unremarkable. Coag panel is negative. Metabolic panel is unremarkable. Urinalysis shows 8 white blood cells. Computed tomography scan of the brain is unremarkable for any acute processes. Chest x-ray shows possible left lower lobe atelectasis versus pneumonia. Considering patient has some white blood cells and concerning x-ray we'll give patient antibiotics. is at bedside reports that patient has history of dementia however has never had any incidences like this in the past. There is concern for acute metabolic encephalopathy. Patient appears awake and will look at you however will not follow commands and she does not appear to be in acute distress.patient was discussed with on-call sound physician was willing to accept patients care. Neurology will be consulted. (Lorenzo Mcpherson) - Lab Data Lab Results 08/12/20 08/12/20 08/12/20 Range/Units 14:19 14:24 14:24 WBC 8.7 (3.8-10.6) k/uL RBC 4.87 (3.80-5.40) m/uL Hgb 14.9 (11.4-16.0) gm/dL Hct 46.2 H (34.0-46.0) % MCV 94.7 (80.0-100.0) fL MCH 30.5 (25.0-35.0) pg MCHC 32.2 (31.0-37.0) g/dL RDW 12.2 (11.5-15.5) % Plt Count 232 (150-450) k/uL Neutrophils % 61 % Lymphocytes % 30 % Monocytes % 5 % Eosinophils % 3 % Basophils % 1 % Neutrophils # 5.3 (1.3-7.7) k/uL Lymphocytes # 2.6 (1.0-4.8) k/uL Monocytes # 0.4 (0-1.0) k/uL Eosinophils # 0.2 (0-0.7) k/uL Basophils # 0.1 (0-0.2) k/uL PT 10.3 (9.0-12.0) sec INR 1.0 (<1.2) APTT 20.4 L (22.0-30.0) sec Sodium (137-145) mmol/L Potassium (3.5-5.1) mmol/L Chloride (98-107) mmol/L Carbon Dioxide (22-30) mmol/L Anion Gap mmol/L BUN (7-17) mg/dL Creatinine (0.52-1.04) mg/dL Est GFR (CKD-EPI)AfAm (>60 ml/min/1.73 sqM) Est GFR (CKD-EPI)NonAf (>60 ml/min/1.73 sqM) Glucose (74-99) mg/dL POC Glucose (mg/dL) 108 H (75-99) mg/dL POC Glu Copy Preparer ID Petrona Mayer Calcium (8.4-10.2) mg/dL Total Bilirubin (0.2-1.3) mg/dL AST (14-36) U/L ALT (4-34) U/L Alkaline Phosphatase (38-126) U/L Ammonia (<30) umol/L Troponin I (0.000-0.034) ng/mL Total Protein (6.3-8.2) g/dL Albumin (3.5-5.0) g/dL TSH (0.465-4.680) mIU/L Urine Color Urine Appearance (Clear) Urine pH (5.0-8.0) Ur Specific [place] (1.001-1.035) Urine Protein (Negative) Urine Glucose (UA) (Negative) Urine Ketones (Negative) Urine Blood (Negative) Urine Nitrite (Negative) Urine Bilirubin (Negative) Urine Urobilinogen (<2.0) mg/dL Ur Leukocyte Esterase (Negative) Urine RBC (0-5) /hpf Urine WBC (0-5) /hpf Ur Squamous Epith Cells (0-4) /hpf Hyaline Casts (0-2) /lpf Urine Mucus (None) /hpf 08/12/20 08/12/20 08/12/20 Range/Units 14:24 14:24 14:24 WBC (3.8-10.6) k/uL RBC (3.80-5.40) m/uL Hgb (11.4-16.0) gm/dL Hct (34.0-46.0) % MCV (80.0-100.0) fL MCH (25.0-35.0) pg MCHC (31.0-37.0) g/dL RDW (11.5-15.5) % Plt Count (150-450) k/uL Neutrophils % % Lymphocytes % % Monocytes % % Eosinophils % % Basophils % % Neutrophils # (1.3-7.7) k/uL Lymphocytes # (1.0-4.8) k/uL Monocytes # (0-1.0) k/uL Eosinophils # (0-0.7) k/uL Basophils # (0-0.2) k/uL PT (9.0-12.0) sec INR (<1.2) APTT (22.0-30.0) sec Sodium 142 (137-145) mmol/L Potassium 4.0 (3.5-5.1) mmol/L Chloride 110 H (98-107) mmol/L Carbon Dioxide 28 (22-30) mmol/L Anion Gap 4 mmol/L BUN 22 H (7-17) mg/dL Creatinine 0.88 (0.52-1.04) mg/dL Est GFR (CKD-EPI)AfAm 69 (>60 ml/min/1.73 sqM) Est GFR (CKD-EPI)NonAf 60 (>60 ml/min/1.73 sqM) Glucose 114 H (74-99) mg/dL POC Glucose (mg/dL) (75-99) mg/dL POC Glu Copy Preparer ID Calcium 9.6 (8.4-10.2) mg/dL Total Bilirubin 0.5 (0.2-1.3) mg/dL AST 28 (14-36) U/L ALT 18 (4-34) U/L Alkaline Phosphatase 54 (38-126) U/L Ammonia <9 (<30) umol/L Troponin I (0.000-0.034) ng/mL Total Protein 6.8 (6.3-8.2) g/dL Albumin 3.6 (3.5-5.0) g/dL TSH (0.465-4.680) mIU/L Urine Color Yellow Urine Appearance Cloudy H (Clear) Urine pH 5.5 (5.0-8.0) Ur Specific [place] 1.033 (1.001-1.035) Urine Protein 1+ H (Negative) Urine Glucose (UA) Negative (Negative) Urine Ketones Negative (Negative) Urine Blood Negative (Negative) Urine Nitrite Negative (Negative) Urine Bilirubin Negative (Negative) Urine Urobilinogen 2.0 (<2.0) mg/dL Ur Leukocyte Esterase Large H (Negative) Urine RBC 2 (0-5) /hpf Urine WBC 8 H (0-5) /hpf Ur Squamous Epith Cells 1 (0-4) /hpf Hyaline Casts 44 H (0-2) /lpf Urine Mucus Moderate H (None) /hpf 08/12/20 08/12/20 Range/Units 14:24 14:24 WBC (3.8-10.6) k/uL RBC (3.80-5.40) m/uL Hgb (11.4-16.0) gm/dL Hct (34.0-46.0) % MCV (80.0-100.0) fL MCH (25.0-35.0) pg MCHC (31.0-37.0) g/dL RDW (11.5-15.5) % Plt Count (150-450) k/uL Neutrophils % % Lymphocytes % % Monocytes % % Eosinophils % % Basophils % % Neutrophils # (1.3-7.7) k/uL Lymphocytes # (1.0-4.8) k/uL Monocytes # (0-1.0) k/uL Eosinophils # (0-0.7) k/uL Basophils # (0-0.2) k/uL PT (9.0-12.0) sec INR (<1.2) APTT (22.0-30.0) sec Sodium (137-145) mmol/L Potassium (3.5-5.1) mmol/L Chloride (98-107) mmol/L Carbon Dioxide (22-30) mmol/L Anion Gap mmol/L BUN (7-17) mg/dL Creatinine (0.52-1.04) mg/dL Est GFR (CKD-EPI)AfAm (>60 ml/min/1.73 sqM) Est GFR (CKD-EPI)NonAf (>60 ml/min/1.73 sqM) Glucose (74-99) mg/dL POC Glucose (mg/dL) (75-99) mg/dL POC Glu Copy Preparer ID Calcium (8.4-10.2) mg/dL Total Bilirubin (0.2-1.3) mg/dL AST (14-36) U/L ALT (4-34) U/L Alkaline Phosphatase (38-126) U/L Ammonia (<30) umol/L Troponin I <0.012 (0.000-0.034) ng/mL Total Protein (6.3-8.2) g/dL Albumin (3.5-5.0) g/dL TSH 0.039 L (0.465-4.680) mIU/L Urine Color Urine Appearance (Clear) Urine pH (5.0-8.0) Ur Specific [place] (1.001-1.035) Urine Protein (Negative) Urine Glucose (UA) (Negative) Urine Ketones (Negative) Urine Blood (Negative) Urine Nitrite (Negative) Urine Bilirubin (Negative) Urine Urobilinogen (<2.0) mg/dL Ur Leukocyte Esterase (Negative) Urine RBC (0-5) /hpf Urine WBC (0-5) /hpf Ur Squamous Epith Cells (0-4) /hpf Hyaline Casts (0-2) /lpf Urine Mucus (None) /hpf Disposition <Kristian Londono - Last Filed: 08/12/20 14:15> Decision Time: 16:51 <Lorenzo Mcpherson - Last Filed: 08/12/20 16:51> Clinical Impression: Altered mental status Disposition: ADMITTED IP TO THIS HOSP Condition: Fair Referrals: Jostin Garcia MD [Medical Doctor] - 1-2 days
[2020-08-12 14:20] LABS: Glucose,Whole Blood 108 mg/dL (75-99)
[2020-08-12 14:36] LABS: Basophils # (A) 0.1 k/uL (0-0.2); Basophils % (A) 1 %; Eosinophils # (A) 0.2 k/uL (0-0.7); Eosinophils % (A) 3 %; HCT 46.2 % (34.0-46.0); HGB 14.9 gm/dL (11.4-16.0); Lymphocytes # (A) 2.6 k/uL (1.0-4.8); Lymphocytes % (A) 30 %; MCH 30.5 pg (25.0-35.0); MCHC 32.2 g/dL (31.0-37.0); MCV 94.7 fL (80.0-100.0); Mean Platelet Volume 7.4; Monocytes # (A) 0.4 k/uL (0-1.0); Monocytes % (A) 5 %; Neutrophils # (A) 5.3 k/uL (1.3-7.7); Neutrophils % (A) 61 %; Platelet Count 232 k/uL (150-450); RBC 4.87 m/uL (3.80-5.40); RDW 12.2 % (11.5-15.5); WBC 8.7 k/uL (3.8-10.6)
[2020-08-12 14:47] LABS: Albumin 3.6 g/dL (3.5-5.0); Calcium 9.6 mg/dL (8.4-10.2); Total Bilirubin 0.5 mg/dL (0.2-1.3); Total Protein 6.8 g/dL (6.3-8.2)
--- NOTE | 2020-08-12 14:49 | XR ---
EXAMINATION TYPE: XR chest 2V DATE OF EXAM: 08/12/2020 COMPARISON: Prior chest x-ray 10/21/2019 HISTORY: Altered mental status TECHNIQUE: Frontal and lateral views of the chest are obtained. FINDINGS: There is no pleural effusion or pneumothorax seen. The cardiac silhouette size is enlarge d and there are overlying artifacts. Patchy retrocardiac density suspected. 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 The aorta is dense. Patient is rotated, there is tracheal deviation to the right IMPRESSION: Cardiomegaly is chronic, possible left lower lobe atelectasis versus pneumonia. There is tracheal deviation toward the right likely due to goiter. Patient is rotated. Follow-up PA and later al chest x-ray suggested.
--- NOTE | 2020-08-12 14:53 | CT ---
EXAMINATION TYPE: CT brain wo con DATE OF EXAM: 08/12/2020 COMPARISON: CT 10/21/2019 HISTORY: Mental status changes. History of alzheimers. CT DLP: 1158.4 mGycm Automated exposure control for dose reduction was used. Helical imaging through the brain FINDINGS: There is no hemorrhage or hydrocephalus. The calvarium is intact. Cerebral vascular calcifications ar e present. Periventricular white matter shows patchy low attenuation. There is cortical atrophy. Poss ible inflammatory change, mucus retention cyst within the right maxillary sinus. Cerumen present in t he external auditory canal on the right. IMPRESSION: STABLE AGE-RELATED CHANGES AND PROBABLE CHRONIC SMALL VESSEL ISCHEMIA
[2020-08-12 14:56] LABS: Prothrombin Time 10.3 sec (9.0-12.0)
[2020-08-12 14:58] LABS: Partial Thromboplastin Time 20.4 sec (22.0-30.0)
[2020-08-12 15:27] LABS: Appearance,Urine Cloudy (Clear); Bilirubin,Urine Negative (Negative); Blood,Urine Negative (Negative); Color,Urine Yellow; Glucose,Urine (UA) Negative (Negative); Hyaline Casts,Urine 44 /lpf (0-2); Ketones,Urine Negative (Negative); Leukocyte Esterase,Urine Large (Negative); Mucus,Urine Moderate /hpf; Nitrite,Urine Negative (Negative); PH, Urine 5.5 (5.0-8.0); Protein,Urine 1+ (Negative); RBC,Urine 2 /hpf (0-5); Specific Gravity,Urine 1.033 (1.001-1.035); Squamous Epithelial Cell,Urine 1 /hpf (0-4); WBC,Urine 8 /hpf (0-5)
--- NOTE | 2020-08-12 15:45 | XR ---
EXAMINATION TYPE: XR chest 2V DATE OF EXAM: 08/12/2020 COMPARISON: Prior chest x-ray 08/12/2020 and earlier time HISTORY: Altered mental status TECHNIQUE: Frontal and lateral views of the chest are obtained. FINDINGS: There is obscured portion of the left hemidiaphragm. Lung volumes are low and the patient is rotated. No evident pneumothorax. Tracheal deviation is again seen due to patient's goiter. The c ardiac silhouette size is enlarged. The osseous structures are stable, arthropathy changes present. IMPRESSION: Possible left lower lobe atelectasis versus pneumonia, follow-up suggested
[2020-08-12] MEDS ORDERED: AZITHROMYCIN 500 MG in SODIUM CHLORIDE 0.9% 250 ML IVPB STA (16:42)
[2020-08-12] MEDS ORDERED: cefTRIAXone IN SWFI 1,000 MG/10 ML SYRINGE IVP STA (16:42)
[2020-08-12] MEDS ORDERED: NALOXONE 0.4 MG/ML 1 ML VIAL IV PRN (16:49)
[2020-08-12] MEDS ORDERED: SODIUM CHLORIDE 0.9% 1,000 ML IV SCH (17:00)
[2020-08-12] MEDS ORDERED: ONDANSETRON 4 MG/2 ML VIAL IVP PRN (17:33)
[2020-08-12] MEDS ORDERED: ACETAMINOPHEN TAB 325 MG TAB PO PRN (17:33)
--- NOTE | 2020-08-12 17:34 | P.HPIM ---
History of Present Illness H&P Date: 08/12/20 Chief Complaint: After mental status This is a 85-year-old female with past medical history significant for advanced dementia who was brought in from a local dementia unit/longterm with concerns about her being not responsive. Patient was evaluated by me in the ER. She was lethargic but easily arousable. She is unable to provide any significant history. She is able to answer yes or no questions. Her at bedside total knee that at baseline patient does not recognize her surroundings. She is unable to recognize her . She has advanced dementia. She need assistance with all of her activities of daily living. Is not quite sure why they sent her to the ER but he was told that she was less responsive today. Patient appeared comfortable. She does not have any neurological deficit. She was evaluated in the ER and computed tomography scan of the head showed no acute intracranial findings. Patient will be placed on observation. Neurology co nsulted by ED staff. Review of Systems Review of system: 14 points review of systems were obtained and were negative except to what were mentioned in the HPI. Past Medical History Past Medical History: Dementia, Hyperlipidemia, Hypertension History of Any Multi-Drug Resistant Organisms: None Reported Past Surgical History: Bladder Surgery, Hysterectomy, Orthopedic Surgery Additional Past Surgical History / Comment(s): thyroid Past Anesthesia/Blood Transfusion Reactions: No Reported Reaction Past Psychological History: Anxiety Past Alcohol Use History: None Reported Past Drug Use History: None Reported - Past Family History Father Family Medical History: Unable to Obtain Medications and Allergies Home Medications Medication Instructions Recorded Confirmed Type Aspirin EC [Ecotrin Low Dose] 81 mg PO HS 11/03/17 10/21/19 History Citalopram Hydrobromide [CeleXA] 10 mg PO DAILY 11/03/17 10/21/19 History Donepezil [Aricept] 10 mg PO BID 11/03/17 10/21/19 History Metoprolol Tartrate [Lopressor] 12.5 mg PO DAILY 11/03/17 10/21/19 History Simvastatin [Zocor] 20 mg PO HS 11/03/17 10/21/19 History amLODIPine [Norvasc] 2.5 mg PO DAILY 11/03/17 10/21/19 History Bimatoprost [Lumigan .01% Ophth 1 drop BOTH EYES HS 10/21/19 10/21/19 History Soln] Docusate [Colace] 100 mg PO DAILY 10/21/19 10/21/19 History Memantine HCl [Memantine HCl ER] 14 mg PO DAILY 10/21/19 10/21/19 History Ubidecarenone [Co Q-10] 400 mg PO HS 10/21/19 10/21/19 History ALPRAZolam [Xanax] 0.25 mg PO HS PRN #0 10/25/19 10/21/19 Rx Tamsulosin [Flomax] 0.4 mg PO PC-BRKFST #30 cap.er.24h 10/25/19 Rx Allergies Allergy/AdvReac Type Severity Reaction Status Date / Time No Known Allergies Allergy Verified 10/21/19 14:22 Physical Exam Vitals: Vital Signs Temp Pulse Resp BP Pulse Ox 08/12/20 15:34 70 18 121/77 100 08/12/20 14:00 97.4 F L 70 18 91 L Intake and Output 08/12/20 08/12/20 08/12/20 06:59 14:59 22:59 Other: Weight 73.028 kg General: The patient is lethargic but easily arousable. Eye: there is normal conjunctiva bilaterally. Neck: The neck is supple, there is no JVD. Cardiovascular: Normal S1-S2, no S3-S4, no murmurs. Respiratory: Lungs clear to auscultation bilaterally Gastrointestinal: Abdomen is soft, nontender Musculoskeletal: There is no pedal edema. Skin: Skin is warm and dry Results CBC & Chem 7: 08/12/20 14:24 08/12/20 14:24 Labs: Abnormal Lab Results - Last 24 Hours (Table) 08/12/20 08/12/20 08/12/20 Range/Units 14:19 14:24 14:24 Hct 46.2 H (34.0-46.0) % APTT 20.4 L (22.0-30.0) sec Chloride (98-107) mmol/L BUN (7-17) mg/dL Glucose (74-99) mg/dL POC Glucose (mg/dL) 108 H (75-99) mg/dL TSH (0.465-4.680) mIU/L Urine Appearance (Clear) Urine Protein (Negative) Ur Leukocyte Esterase (Negative) Urine WBC (0-5) /hpf Hyaline Casts (0-2) /lpf Urine Mucus (None) /hpf 08/12/20 08/12/20 08/12/20 Range/Units 14:24 14:24 14:24 Hct (34.0-46.0) % APTT (22.0-30.0) sec Chloride 110 H (98-107) mmol/L BUN 22 H (7-17) mg/dL Glucose 114 H (74-99) mg/dL POC Glucose (mg/dL) (75-99) mg/dL TSH 0.039 L (0.465-4.680) mIU/L Urine Appearance Cloudy H (Clear) Urine Protein 1+ H (Negative) Ur Leukocyte Esterase Large H (Negative) Urine WBC 8 H (0-5) /hpf Hyaline Casts 44 H (0-2) /lpf Urine Mucus Moderate H (None) /hpf Assessment and Plan Assessment: 1. Altered mental status/encephalopathy, toxo metabolic, mild. May be attributed to underlying UTI and dehydration. Computed tomography scan of the brain in the ER with no acute intracranial findings. 2. Umcomplicated UTI, started on IV ceftriaxone awaiting urine cultures to finalize 3. Advanced dementia 4. Hypertension, blood pressure within acceptable range continue home medications 5. Chronic medical problems include hyperlipidemia and depression 6. DVT prophylaxis with subcu heparin 7. CODE STATUS: Patient is DO NOT RESUSCITATE/DO NOT INTUBATE. Discussed with her at bedside. Today, I reviewed her medication list and lab work results. Continue gentle IV fluid hydration with normal saline at 75 mL per hour. Patient's informed me that this is about her baseline. Patient does not have any neurological focal deficit. Computed tomography scan of the brain with no acute findings. It is not clear to me why neurology was consulted by ED staff. I had a prolonged discussion with her regarding goals of care. We discu ssed comfort measures given her advanced dementia. Who is agreeable to change her CODE STATUS to DO NOT RESUSCITATE/DO NOT INTUBATE. Further discussion about comfort measures may be needed. Awaiting retail pharmacy merchandiser to confirm home medication to reconcile.
[2020-08-12] MEDS: SODIUM CHLORIDE 0.9% 1,000 ML IV SCH (19:03)
[2020-08-12] MEDS: HEPARIN SODIUM,PORCINE 5,000 UNIT/ML 1 ML VIAL SQ SCH (22:46)
[2020-08-12] MEDS: HALOPERIDOL LACTATE 5 MG/ML 1 ML VIAL IM PRN (23:35)
[2020-08-13] MEDS: HALOPERIDOL LACTATE 5 MG/ML 1 ML VIAL IM PRN (01:35)
[2020-08-13] MEDS: DONEPEZIL 10 MG TAB PO SCH ×2 (09:24→20:52)
[2020-08-13] MEDS: MEMANTINE 5 MG TAB PO SCH (09:24)
[2020-08-13] MEDS: CITALOPRAM HYDROBROMIDE 20 MG TAB PO SCH (09:24)
[2020-08-13] MEDS: amLODIPine 2.5 MG TAB PO SCH (09:24)
[2020-08-13] MEDS: HEPARIN SODIUM,PORCINE 5,000 UNIT/ML 1 ML VIAL SQ SCH ×2 (09:25→20:52)
--- NOTE | 2020-08-13 10:29 | P.CNNES ---
History of Present Illness Consult date: 08/13/20 Requesting physician: Lorenzo Mcpherson Reason for Consult: altered mental status History of Present Illness: Is an 85-year-old woman with medical history of advanced dementia, hyperlipidemia, hypertension was brought to the emergency department on that 08/12/2020 from detention with concern about being unresponsive. She is a poor historian. History is obtained from medical record. According to the notes the is not certain why the patient is in the ER. But he was told that that she was less responsive the on 08/12/2020. When she presented to the ED she was the lethargic but easily arousable. Regarding her advanced dementia patient needs assistance with all her activities of daily living. Baseline patient is unable to recognize the surrounding. Workup in the hospital consisted of: Initial vital sign is a blood pressure of 121/77, heart rate of 70, respiratory of 18, temperature of 97.4 Fahrenheit the exiting artery and pulse ox of 91 L at room air CT of the head was reported as stable age-related changes and probable chronic small vessel ischemia. I personally reviewed the CT of the head and there is no acute ischemia or hemorrhage. That the patient does have diffuse the mild to moderate the atrophy which is appropriate for the patient's age. EKG was reported as normal sinus rhythm. Ventricular rate of 64. Minimal voltage criteria for left ventricular hypertrophy, may be normal variant. Abnormal EKG. Chest x-ray was reported as possible left lower lobe atelectasis versus pne umonia, follow-up suggested. Ammonia level is less than 9. POC glucose on presentation was 108. TSH is 0.039 is low. Urine analysis was the urine appears cloudy, the urine leukocyte esterase was large, urine white blood cell is 8. Which is suggestive of the urinary tract infection. Review of Systems Review of system is limited but the prior positive and negative as per HPI. Past Medical History Past Medical History: Dementia, Hyperlipidemia, Hypertension History of Any Multi-Drug Resistant Organisms: None Reported Past Surgical History: Bladder Surgery, Hysterectomy, Orthopedic Surgery Additional Past Surgical History / Comment(s): thyroid, bilateral wrist surgery Past Anesthesia/Blood Transfusion Reactions: No Reported Reaction Past Psychological History: Anxiety Smoking Status: Unknown if ever smoked Past Alcohol Use History: None Reported Past Drug Use History: None Reported - Past Family History Father Family Medical History: Unable to Obtain Medications and Allergies Home Medications Medication Instructions Recorded Confirmed Type Aspirin EC [Ecotrin Low Dose] 81 mg PO DAILY@119911/03/17 08/12/20 History Donepezil [Aricept] 10 mg PO BID@08,199911/03/17 08/12/20 History Metoprolol Tartrate [Lopressor] 12.5 mg PO DAILY@199911/03/17 08/12/20 History Simvastatin [Zocor] 20 mg PO HS@199911/03/17 08/12/20 History amLODIPine [Norvasc] 2.5 mg PO DAILY@0800 11/03/17 08/12/20 History ALPRAZolam [Xanax] 0.25 mg PO TID PRN 08/12/20 08/12/20 History Acetaminophen [Tylenol 8 Hour] 650 mg PO TID@0800,1400,199908/12/20 08/12/20 History Citalopram Hydrobromide [CeleXA] 20 mg PO DAILY@0800 08/12/20 08/12/20 History Ergocalciferol [Vitamin D2 50,000 unit PO FR 08/12/20 08/12/20 History (DRISDOL)] Magnesium Hydroxide [Milk of 1,200 mg PO DAILY@0800 08/12/20 08/12/20 History Magnesia] Memantine HCl [Namenda Xr] 21 mg PO DAILY@0800 08/12/20 08/12/20 History Vit C/E/Zn/Coppr/Lutein/Zeaxan 1 cap PO DAILY@1200 08/12/20 08/12/20 History [Preservision Areds 2 Softgel] Allergies Allergy/AdvReac Type Severity Reaction Status Date / Time No Known Allergies Allergy Verified 10/21/19 14:22 Physical Examination - Vital Signs Vital Signs: Vital Signs Temp Pulse Pulse Resp BP BP Pulse Ox 08/13/20 07:00 98.2 F 85 18 159/99 96 08/13/20 04:29 17 08/13/20 01:35 97.5 F L 101 H 165/81 96 08/13/20 00:05 17 08/12/20 20:00 17 08/12/20 19:05 98.6 F 83 140/75 96 08/12/20 18:10 70 17 126/71 100 08/12/20 15:34 70 18 121/77 100 08/12/20 14:00 97.4 F L 70 18 91 L Intake and Output 08/12/20 08/13/20 08/13/20 22:59 06:59 14:59 Intake Total 675 Output Total 100 2800 Balance -100 -2125 Intake: Intake, IV Titration 675 Amount Sodium Chloride 0.9% 1, 675 000 ml @ 75 mls/hr IV . [id number] [facility] Rx#:[id number] Output: Urine 100 2800 Straight 100 600 Uretheral (Gómez) 800 Other: # Voids 1 # Bowel Movements 1 Weight 73.028 kg GENERAL: The patient is lying in bed and is not in acute distress. CHEST: The heart rate is regular rate rhythm. No murmurs to auscultation. LUNG: Clear to auscultation bilaterally no wheezing noted throughout. Not labored breathing. ABDOMEN/GI: Bowel sounds present in all 4 quadrants. No tenderness to palpation throughout. NEUROLOGICAL: Limited because of patient condition (and has advanced dementia). Higher mental function: The patient is awake but not responding to questions. She said to "go away". No following commands. Cranial nerves: The pupils are round, equal (3-4mm) and reactive to light. Visual treviño are full to threat throughout. Extraocular movement is trracking throughout the room. No facial weakness bilaterally. No dysarthria from limited language. Motor:Gait is deferred. The strength is moving all extremities above gravity and no focality appreciated. Normal tone and bulk. Cerebellum: Unable to assess. Sensation: Unable to assess. Reflexes (right/left): 1+ throughout. Plantars are downgoing bilaterally. Results AST of 28, ALT of 18. - Laboratory Findings CBC and BMP: 08/12/20 14:24 08/12/20 14:24 Abnormal Lab Findings: Abnormal Labs 08/12/20 08/12/20 08/12/20 14:19 14:24 14:24 Hct 46.2 H APTT 20.4 L Chloride BUN Glucose POC Glucose (mg/dL) 108 H TSH Urine Appearance Urine Protein Ur Leukocyte Esterase Urine WBC Hyaline Casts Urine Mucus 08/12/20 08/12/20 08/12/20 14:24 14:24 14:24 Hct APTT Chloride 110 H BUN 22 H Glucose 114 H POC Glucose (mg/dL) TSH 0.039 L Urine Appearance Cloudy H Urine Protein 1+ H Ur Leukocyte Esterase Large H Urine WBC 8 H Hyaline Casts 44 H Urine Mucus Moderate H Assessment and Plan Assessment: This is an 85-year-old woman with history of advanced dementia was brought to the emergency department on 08/12/2020 for an episode of unresponsiveness. Toxic metabolic encephalopathy (Episode of unresponsiveness. Due to underlying UTI) Advanced dementia UTI Hypertension Hyperlipidemia Plan: This episode of unresponsiveness is likely due to underlying infection. Doesn't seem like a seizure. The EEG is not warranted. If the patient continues to have the change in her mentation from her baseline and does not improve then we'll consider getting an EEG. Regarding the patient low TSH, I ordered a free T4. I'll also order vitamin B12 and folate levels to make sure that the levels are within normal range which can have an impact on the cognitive if levels are low. Regarding the patient advanced dementia patient is on Aricept 10 mg twice a day. Also is on the amantadine 50 mg daily. For the management of urinary tract infection to the primary team. Will attempt to contact the patient's to find patient baseline. Thank you for the consultation. Andrea Vaughn M.D. Neuro-hospitalist Time with Patient: Greater than 30
[2020-08-13] MEDS: ASPIRIN 81 MG PO SCH (15:07)
--- NOTE | 2020-08-13 16:00 | P.PN ---
Subjective Progress Note Date: 08/13/20 Patient was seen and examined. No acute events overnight. is at bedside. reports the patient appears agitated more than baseline. She is unable to communicate effectively. She keeps requesting Allan, which is her by name. Objective - Vital Signs Vital signs: Vital Signs Temp 98.2 F 08/13/20 07:00 Pulse 85 08/13/20 07:00 Resp 18 08/13/20 07:00 BP 159/99 08/13/20 07:00 Pulse Ox 96 08/13/20 07:00 Intake & Output 08/12/20 08/13/20 08/13/20 18:59 06:59 18:59 Intake Total 675 Output Total 100 2800 Balance -100 -2125 Weight 73.028 kg 73.028 kg Intake: Intake, IV Titration 675 Amount Sodium Chloride 0.9% 1, 675 000 ml @ 75 mls/hr IV . [id number] [facility] Rx#:[id number] Output: Urine 100 2800 Straight 100 600 Uretheral (Gómez) 800 Other: Voiding Method Indwelling Catheter # Voids 1 # Bowel Movements 1 - Exam General: [non toxic], [mild distress], [appears at stated age] Derm: [warm], [dry] Head: [atraumatic], [normocephalic], [symmetric] Eyes: [EOMI], [no lid lag], [anicteric sclera] Cardiovascular: [S1S2 reg], [no murmur], [positive DP pulse bilateral], Lungs: [CTA bilateral], [no rhonchi, no rales] , [no accessory muscle use] Abdominal: [soft], [no guarding] Ext: [no gross muscle atrophy], [no edema], [no contractures] Neuro: [no focal neuro deficits] Psych: [Alert], [oriented], [appropriate affect] - Labs CBC & Chem 7: 08/12/20 14:24 08/12/20 14:24 Labs: Abnormal Lab Results - Last 24 Hours (Table) 08/12/20 08/12/20 Range/Units 14:24 14:24 TSH 0.039 L (0.465-4.680) mIU/L Urine Appearance Cloudy H (Clear) Urine Protein 1+ H (Negative) Ur Leukocyte Esterase Large H (Negative) Urine WBC 8 H (0-5) /hpf Hyaline Casts 44 H (0-2) /lpf Urine Mucus Moderate H (None) /hpf Microbiology - Last 24 Hours (Table) 08/12/20 23:35 Urine Culture - Preliminary Urine,Catheterized Assessment and Plan Assessment: 1. Altered mental status/encephalopathy, toxo metabolic, mild. May be attributed to underlying UTI and dehydration. Computed tomography scan of the brain in the ER with no acute intracranial findings. Discussed with Dr. Vaughn, consider EEG if patients encephalopathy does not improve with antibiotics. 2. Uncomplicated UTI, started on IV ceftriaxone awaiting urine cultures to finalize 3. Advanced dementia. Continue Donepezil and Memantine. Window side bed. Avoid sedative medications. 4. Hypertension, blood pressure within acceptable range continue home medications 5. Chronic medical problems include hyperlipidemia and depression 6. DVT prophylaxis with subcu heparin 7. CODE STATUS: Patient is DO NOT RESUSCITATE/DO NOT INTUBATE.
[2020-08-13] MEDS: SODIUM CHLORIDE 0.9% 1,000 ML IV SCH ×2 (16:57→20:53)
[2020-08-13 17:02] LABS: T4, Free (Free Thyroxine) 1.1 ng/dL (0.80-1.80)
[2020-08-13] MEDS ORDERED: ATORVASTATIN 10 MG TAB PO SCH (20:00)
[2020-08-13] MEDS ORDERED: METOPROLOL TARTRATE 12.5 MG TAB PO SCH (20:00)
[2020-08-14] MEDS: CITALOPRAM HYDROBROMIDE 20 MG TAB PO SCH (08:30)
[2020-08-14] MEDS: MEMANTINE 5 MG TAB PO SCH (08:30)
[2020-08-14] MEDS: HEPARIN SODIUM,PORCINE 5,000 UNIT/ML 1 ML VIAL SQ SCH (08:30)
[2020-08-14] MEDS: DONEPEZIL 10 MG TAB PO SCH (08:30)
[2020-08-14] MEDS ORDERED: amLODIPine 5 MG TAB PO SCH (08:45)
[2020-08-14] MEDS: amLODIPine 2.5 MG TAB PO SCH (10:07)
[2020-08-14] MEDS: SODIUM CHLORIDE 0.9% 1,000 ML IV SCH (10:08)
[2020-08-14] MEDS: ASPIRIN 81 MG PO SCH (12:29)
[2020-08-14] MEDS ORDERED: QUEtiapine 25 MG TAB PO PRN (13:05)
--- NOTE | 2020-08-14 13:15 | P.CN ---
Psychiatric Consult - . Consult date: 08/14/20 Consult:: 08/14/20 13:06 IDENTIFYING DATA: This patient is a 85-year-old female who currently lives at [facility] on a dementia unit, is currently . REASON FOR REFERRAL: Psychiatry was consulted for dementia and delirium. HISTORY OF PRESENT ILLNESS: The patient presented to the hospital for altered mental status and patient gave limited history at time of arrival. It was unclear when her change in her mental status came about. Patient was found to have positive urine analysis for leukocyte esterase. Patient had a CT head which was negative. She had a chest x-ray which showed lower left atelectasis versus possible pneumonia and was started on antibiotic. Patient showed white blood cells that were within normal limits and electrolytes were within normal limits. Patient's B12 and folic acid were within normal limits. Neurology had been consulted and following patient. Patient's apparently claimed that patient had not been at her baseline and was more agitated. There was other reports that patient was yelling and agitated. Nurse taking here patient states that patient ate lunch earlier and has not been agitated lately. Nurse also claims the patient was able to sleep fairly at night however has been calling out for her from time to time. Patient was seen at the bedside and was sleeping and agreeable to speak to board writer. Patient was awoken and appeared to be confused. She had poor eye contact. She attempted to answer questions as best as she could however patient repeatedly states "I don't know" and then became frustrated and states I don't know anything". She was slow to respond. She asked board writer "why are you doing this?". Patient was alert and oriented 0 did not know her name the date or where she is. Patient was calm today. She denied any depression. At this time patient denies any suicidal or homical ideations, intent or plan. Patient denies any auditory, visual hallucinations. Patient does not use any recreational drugs. PAST PSYCHIATRIC HISTORY: Patient has a a history of dementia. Patient was on donepezil 10 mg twice a day and Namenda 15 mg daily as a cognitive enhancer. Patient is also on Celexa 20 mg daily for mood. PAST MEDICAL HISTORY: Dementia, hypertension, hyperlipidemia. ALLERGIES: as per EMR. CHEMICAL DEPENDENCY HISTORY: as per HPI. FAMILY PSYCHIATRIC/SUBSTANCE USE HISTORY: Unable to assess at this time SOCIAL HISTORY: Unable to gather significant social history due to patient's cognitive status. Patient currently lives lives at [facility] on a dementia unit. She is currently . MENTAL STATUS EXAM: General Appearance: Patient appears to be thin, frail, stated age is alert, attempts to cooperate. Patient appears to have fair hygiene and grooming wearing hospital gown with poor eye contact. Behavior: Patient is calmly lying in bed without any agitated behavior. Speech: Patient's speech is fluent and nonpressured. Mood/Affect: Patient reports their mood is "ok", affect is congruent and constricted Suicidality/Homicidality: Patient denies having any suicidal or homicidal ideation intent or plan. Perceptions: Patient denies any visual hallucinations and denies any auditory hallucinations Though content/process: Poverty of content, concrete. Memory and concentration: AOX 0, fair attention span, poor memory recall. Not able tend identify any objects in the room. Does not know the current president. Follows minimal commands. Judgment and insight: Chronically limited IMPRESSIONS: Delirium likely secondary to urinary tract infection??, Resolving History of Dementia PLAN: -At this time patient DOES NOT meet criteria for inpatient psychiatric admission. It is likely the patient is returning back to her baseline as they delirium clears up. -Patient DOES NOT have decision making capacity at this time and is unable to reason through and communicate/appreciate the risks, benefits and alternatives to treatment. -Delirium precautions recommended with patient including - avoiding use of narcotics and AVIONICS SYSTEM ENGINEER sedatives, limit anticholinergic medications when possible, frequent re-orientation, minimize use of restraints, open window shades during the day and close them at night -Would recommend the following medication changes/additions: Added melatonin 2 mg daily at bedtime for insomnia. Also added Seroquel 12.5 mg daily at bedtime when necessary for agitation -Communicated plan to patient's nurse -Psychiatry will sign off at this time. Once medically clear patient can go back to [facility]. -Please contact with any questions.
--- NOTE | 2020-08-14 14:45 | P.DS ---
Providers Date of admission: 08/12/20 16:49 Expected date of discharge: 08/14/20 Attending physician: Jose Gracia Consults: 08/12/20 16:50 Consult Physician Routine Consulting Provider: Andrea Vaughn Consult Reason/Comments: altered mental status Do you want consulting provider notified?: Yes 08/14/20 08:36 Consult Physician Routine Consulting Provider: Delano Aparicio Consult Reason/Comments: worsening dementia and delirium Do you want consulting provider notified?: Yes Primary care physician: [facility] Course: This is a 85-year-old female with past medical history significant for advanced dementia who was brought in from a local dementia unit/[facility] with concerns about her being not responsive. Patient was evaluated by me in the ER. She was lethargic but easily arousable. She is unable to provide any significant history. She is able to answer yes or no questions. Her at bedside total knee that at baseline patient does not recognize her surroundings. She is unable to recognize her . She has advanced dementia. She need assistance with all of her activities of daily living. Is not quite sure why they sent her to the ER but he was told that she was less responsive today. Patient appeared comfortable. She does not have any neurological deficit. She was evaluated in the ER and computed tomography scan of the head showed no acute intracranial findings. Patient will be placed on observation. Neurology consulted by ED staff. Her urinalysis showed large leukocyte esterase. She was started on Rocephin for concerns of UTI. Urine culture came back negative. Neurology was consulted and recommended treatment for delirium due to her advanced dementia. Vitamin B12 was elevated at 990. Gómez catheter was within normal limits. TSH was decreased at 0.039 but free T4 was within normal limits. Psychiatry was consulted and recommended melatonin and Seroquel as needed at bedtime. It was thought that patient had returned to her baseline. Patient was seen and examined. No acute events overnight. Patient is a lot more calmer today though unable to communicate effectively. General: [non toxic], [mild distress], [appears at stated age] Derm: [warm], [dry] Head: [atraumatic], [normocephalic], [symmetric] Eyes: [EOMI], [no lid lag], [anicteric sclera] Cardiovascular: [S1S2 reg], [no murmur], [positive DP pulse bilateral], Lungs: [CTA bilateral], [no rhonchi, no rales] , [no accessory muscle use] Abdominal: [soft], [no guarding] Ext: [no gross muscle atrophy], [no edema], [no contractures] Neuro: [Unable to follow commands] Psych: [Unable to determine] 1. Altered mental status/encephalopathy, toxo metabolic, mild. Her altered mental status is resolving. Computed tomography scan of the brain in the ER with no acute intracranial findings. Psychiatry consulted, recommends Seroquel and Melatonin PRN and to avoid sedatives. 2. UTI. Finish 1 more day of Bactrim by mouth. Urine culture was negative. 3. Advanced dementia. Continue Donepezil and Memantine. Window side bed. Avoid sedative medications. Psychiatry added melatonin and Seroquel as needed. 4. Hypertension, blood pressure within acceptable range continue home medications 5. Chronic medical problems include hyperlipidemia and depression 6. DVT prophylaxis with subcu heparin 7. CODE STATUS: Patient is DO NOT RESUSCITATE/DO NOT INTUBATE. Attempted to call to discuss hospice at her assisted living. Apparently, he has refused in the past when discussed with Case management. Phone call went to voice mail. Patient appears to be back to baseline. Plans on DC to assisted living today. Pertinent Studies: Brain CT, CXR Patient Condition at Discharge: Stable Plan - Discharge Summary Discharge Rx Participant: No New Discharge Prescriptions: New Melatonin 2 mg PO HS tab QUEtiapine [SEROquel] 12.5 mg PO HS PRN #0 tab PRN Reason: agitation/insomnia Continue Donepezil [Aricept] 10 mg PO BID@0800,2000 amLODIPine [Norvasc] 2.5 mg PO DAILY@0800 Simvastatin [Zocor] 20 mg PO HS@2000 Metoprolol Tartrate [Lopressor] 12.5 mg PO DAILY@2000 Aspirin EC [Ecotrin Low Dose] 81 mg PO DAILY@1200 Vit C/E/Zn/Coppr/Lutein/Zeaxan [Preservision Areds 2 Softgel] 1 cap PO DAILY@1200 Memantine HCl [Namenda Xr] 21 mg PO DAILY@0800 Magnesium Hydroxide [Milk of Magnesia] 1,200 mg PO DAILY@0800 Citalopram Hydrobromide [CeleXA] 20 mg PO DAILY@0800 Acetaminophen [Tylenol 8 Hour] 650 mg PO TID@0800,1399,1999 Ergocalciferol [Vitamin D2 (DRISDOL)] 50,000 unit PO FR Discontinued ALPRAZolam [Xanax] 0.25 mg PO TID PRN PRN Reason: Anxiety Discharge Medication List Aspirin EC [Ecotrin Low Dose] 81 mg PO DAILY@119911/03/17 [History] Donepezil [Aricept] 10 mg PO BID@0800,199911/03/17 [History] Metoprolol Tartrate [Lopressor] 12.5 mg PO DAILY@199911/03/17 [History] Simvastatin [Zocor] 20 mg PO HS@199911/03/17 [History] amLODIPine [Norvasc] 2.5 mg PO DAILY@0800 11/03/17 [History] Acetaminophen [Tylenol 8 Hour] 650 mg PO TID@0800,1399,199908/12/20 [History] Citalopram Hydrobromide [CeleXA] 20 mg PO DAILY@0800 08/12/20 [History] Ergocalciferol [Vitamin D2 (DRISDOL)] 50,000 unit PO FR 08/12/20 [History] Magnesium Hydroxide [Milk of Magnesia] 1,200 mg PO DAILY@0800 08/12/20 [History] Memantine HCl [Namenda Xr] 21 mg PO DAILY@0800 08/12/20 [History] Vit C/E/Zn/Coppr/Lutein/Zeaxan [Preservision Areds 2 Softgel] 1 cap PO DAILY@1200 08/12/20 [History] Melatonin 2 mg PO HS tab 08/14/20 [Rx] QUEtiapine [SEROquel] 12.5 mg PO HS PRN #0 tab 08/14/20 [Rx] Follow up Appointment(s)/Referral(s): Jostin Garcia MD [Medical Doctor] - 1-2 days Activity/Diet/Wound Care/Special Instructions: *Discharging RN - please call Rosemary Luu at discharge to go over d/c instructions: [phone]. Seroquel might make the patient more drowsy or sleepier than usual. This is typical for this medication. Please observe her as this is temporary and should resolve with time. Discharge Disposition: HOME SELF-CARE
[2020-08-14 15:38] VITALS: BP 154/81; PULSE 73; RESP 15; TEMP 98.4
[2020-08-14] MEDS ORDERED: MELATONIN 1 MG TAB PO SCH (21:00)
== END 2020-08-14 15:48 | disposition home or self-care (01) ==
LOC: EC 13:57 → 4SSUR 16:49 → INTOOBSV 16:49 → 4SSUR 18:02
PROVIDERS: ADMIT Internal Medicine; ATTEND Internal Medicine
DX: G92 Toxic encephalopathy (principal); N39.0 Urinary tract infection, site not specified; E86.0 Dehydration; F03.90 Unspecified dementia, unspecified severity, without behavioral disturbance, psychotic disturbance, mood disturbance, and anxiety; I10 Essential (primary) hypertension; E78.5 Hyperlipidemia, unspecified; F41.9 Anxiety disorder, unspecified; R91.8 Other nonspecific abnormal finding of lung field; R41.0 Disorientation, unspecified; Z66 Do not resuscitate; Z79.82 Long term (current) use of aspirin; Z79.899 Other long term (current) drug therapy; Z98.890 Other specified postprocedural states; Z90.710 Acquired absence of both cervix and uterus; Z86.69 Personal history of other diseases of the nervous system and sense organs; Z82.3 Family history of stroke
CPT/HCPCS: 96361 ×3; 96366 ×2; 96367; 96372 ×3; 96376; 96365; 99285; 36415; 93005; 84439; 82747; 80053; 82607; 82140; 84443; 84484; 85025; 85610; 85730; 81001; 87086; 71046; 70450; G0378 ×3; J1630 ×2; J1644 ×3; J0456; J0696 ×3

== ENCOUNTER 2020-09-04 13:32 | Emergency (ER) | payer MEDICARE, OTHER ==
[2020-09-04] MEDS ORDERED: SODIUM CHLORIDE 0.9% 500 ML 500 ML IV ONE (13:49)
--- NOTE | 2020-09-04 13:56 | ED ---
General Adult HPI - General Chief complaint: Altered Mental Status Stated complaint: AMS Time Seen by Provider: 09/04/20 13:35 Source: family, EMS, RN notes reviewed, old records reviewed Mode of arrival: EMS Limitations: altered mental status - History of Present Illness Initial comments: This is an 85-year-old female who has a past medical history significant for dementia her baseline is and times one. [facility] they were having a hard time getting her responses a cough and was sent her in. According to EMS she has been alert and oriented times one in the hallway in. states this is happenedfrom time to time. states currently she appears to be at her baseline. There is no report of any fever no report of any difficulty breathing. No report of any trauma. There is been no further report because no caregiver came with the patient and the hasn't got a report from the facility. - Related Data Home Medications Medication Instructions Recorded Confirmed Aspirin EC [Ecotrin Low Dose] 81 mg PO DAILY@1200 11/03/17 09/04/20 Donepezil [Aricept] 10 mg PO BID@0800,199911/03/17 09/04/20 Simvastatin [Zocor] 20 mg PO HS@199911/03/17 09/04/20 amLODIPine [Norvasc] 2.5 mg PO DAILY@0800 11/03/17 09/04/20 Acetaminophen [Tylenol 8 Hour] 650 mg PO TID@0800,1400,199908/12/20 09/04/20 Citalopram Hydrobromide [CeleXA] 20 mg PO DAILY@0800 08/12/20 09/04/20 Ergocalciferol [Vitamin D2 50,000 unit PO FR 08/12/20 09/04/20 (DRISDOL)] Magnesium Hydroxide [Milk of 1,200 mg PO DAILY@0800 08/12/20 09/04/20 Magnesia] Memantine HCl [Namenda Xr] 21 mg PO DAILY@0800 08/12/20 09/04/20 Vit C/E/Zn/Coppr/Lutein/Zeaxan 1 cap PO DAILY@1200 08/12/20 09/04/20 [Preservision Areds 2 Softgel] Melatonin 5 mg PO HS@199909/04/20 09/04/20 Metoprolol Succinate (ER) [Toprol 12.5 mg PO DAILY@0800 09/04/20 09/04/20 XL] QUEtiapine [SEROquel] 25 mg PO BID@799,199909/04/20 09/04/20 Previous Rx's Medication Instructions Recorded Nitrofurantoin Monohyd/M-Cryst 100 mg PO Q12HR #14 cap 09/04/20 [Macrobid] Allergies Allergy/AdvReac Type Severity Reaction Status Date / Time No Known Allergies Allergy Verified 09/04/20 14:39 Review of Systems ROS Statement: Those systems with pertinent positive or pertinent negative responses have been documented in the HPI. ROS Other: All systems not noted in ROS Statement are negative. Past Medical History Past Medical History: Dementia, Hyperlipidemia, Hypertension History of Any Multi-Drug Resistant Organisms: None Reported Past Surgical History: Bladder Surgery, Hysterectomy, Orthopedic Surgery Additional Past Surgical History / Comment(s): thyroid, bilateral wrist surgery Past Anesthesia/Blood Transfusion Reactions: No Reported Reaction Past Psychological History: Anxiety Smoking Status: Unknown if ever smoked Past Alcohol Use History: None Reported Past Drug Use History: None Reported - Past Family History Father Family Medical History: Unable to Obtain General Exam - General Exam Comments Initial Comments: GENERAL: Patient is well-developed and well-nourished. Patient is nontoxic and well- hydrated and is in no acute distress. ENT: Neck is soft and supple. No significant lymphadenopathy is noted. Oropharynx is clear. Moist mucous membranes. Neck has full range of motion without eliciting any pain. EYES: The sclera were anicteric and conjunctiva were pink and moist. Extraocular movements were intact and pupils were equal round and reactive to light. Eyeli ds were unremarkable. PULMONARY: Unlabored respirations. Good breath sounds bilaterally. No audible rales rhonchi or wheezing was noted. CARDIOVASCULAR: There is a regular rate and rhythm without any murmurs gallops or rubs. ABDOMEN: Soft and nontender with normal bowel sound SKIN: Skin is clear with no lesions or rashes and otherwise unremarkable. NEUROLOGIC: Patient is alert and oriented x 1. Cranial nerves II through XII are grossly intact. Motor and sensory are also intact. Normal speech, volume and content. Symmetrical smile. MUSCULOSKELETAL: Normal extremities with adequate strength and full range of motion. No lower extremity swelling or edema. No calf tenderness. LYMPHATICS: No significant lymphadenopathy is noted PSYCHIATRIC: unable to assess Limitations: altered mental status Course Vital Signs 09/04/20 09/04/20 09/04/20 13:34 15:42 16:00 Temperature 99.0 F Pulse Rate 58 L 75 72 Respiratory 12 16 18 Rate Blood Pressure 118/71 116/56 O2 Sat by Pulse 98 98 98 Oximetry 09/04/20 09/04/20 17:00 17:06 Temperature 97.8 F 97.8 F Pulse Rate 72 72 Respiratory 18 18 Rate Blood Pressure 133/79 133/79 O2 Sat by Pulse 98 98 Oximetry Medical Decision Making - Medical Decision Making EKG shows normal sinus rhythm at 72 bpm ND interval 184 QRS is 84 QT interval 398 QTC is 435. Patient's EKG shows no ST segment elevation or depression. Patient does show Q waves in leads II, III, and F aVF. These are seen on old EKG. Patient remained at her baseline throughout the ED stay. Patient received 2 g of Rocephin for the urinary tract infection. Patient be discharged home on antibiotics. - Lab Data Result diagrams: 09/04/20 14:59 09/04/20 14:59 Lab Results 09/04/20 09/04/20 09/04/20 Range/Units 14:59 14:59 14:59 WBC 8.0 (3.8-10.6) k/uL RBC 4.04 (3.80-5.40) m/uL Hgb 12.4 (11.4-16.0) gm/dL Hct 37.5 (34.0-46.0) % MCV 92.7 (80.0-100.0) fL MCH 30.7 (25.0-35.0) pg MCHC 33.1 (31.0-37.0) g/dL RDW 11.9 (11.5-15.5) % Plt Count 177 (150-450) k/uL MPV 7.7 Neutrophils % 74 % Lymphocytes % 19 % Monocytes % 4 % Eosinophils % 2 % Basophils % 1 % Neutrophils # 6.0 (1.3-7.7) k/uL Lymphocytes # 1.5 (1.0-4.8) k/uL Monocytes # 0.3 (0-1.0) k/uL Eosinophils # 0.1 (0-0.7) k/uL Basophils # 0.0 (0-0.2) k/uL PT 10.6 (9.0-12.0) sec INR 1.0 (<1.2) APTT 23.8 (22.0-30.0) sec Sodium (137-145) mmol/L Potassium (3.5-5.1) mmol/L Chloride (98-107) mmol/L Carbon Dioxide (22-30) mmol/L Anion Gap mmol/L BUN (7-17) mg/dL Creatinine (0.52-1.04) mg/dL Est GFR (CKD-EPI)AfAm (>60 ml/min/1.73 sqM) Est GFR (CKD-EPI)NonAf (>60 ml/min/1.73 sqM) Glucose (74-99) mg/dL Calcium (8.4-10.2) mg/dL Total Bilirubin (0.2-1.3) mg/dL AST (14-36) U/L ALT (4-34) U/L Alkaline Phosphatase (38-126) U/L Troponin I (0.000-0.034) ng/mL Total Protein (6.3-8.2) g/dL Albumin (3.5-5.0) g/dL Urine Color Light Brown Urine Appearance Turbid H (Clear) Urine pH 8.0 (5.0-8.0) Ur Specific [place] 1.019 (1.001-1.035) Urine Protein 2+ H (Negative) Urine Glucose (UA) Negative (Negative) Urine Ketones Negative (Negative) Urine Blood Large H (Negative) Urine Nitrite Positive H (Negative) Urine Bilirubin Negative (Negative) Urine Urobilinogen <2.0 (<2.0) mg/dL Ur Leukocyte Esterase Large H (Negative) Urine RBC >182 H (0-5) /hpf Urine WBC >182 H (0-5) /hpf Urine WBC Clumps Many H (None) /hpf Urine Bacteria Many H (None) /hpf Urine Opiates Screen Not Detected (NotDetected) Ur Oxycodone Screen Not Detected (NotDetected) Urine Methadone Screen Not Detected (NotDetected) Ur Propoxyphene Screen Not Detected (NotDetected) Ur Barbiturates Screen Not Detected (NotDetected) U Tricyclic Antidepress Detected H (NotDetected) Ur Phencyclidine Scrn Not Detected (NotDetected) Ur Amphetamines Screen Not Detected (NotDetected) U Methamphetamines Scrn Not Detected (NotDetected) U Benzodiazepines Scrn Not Detected (NotDetected) Urine Cocaine Screen Not Detected (NotDetected) U Marijuana (THC) Screen Not Detected (NotDetected) 09/04/20 09/04/20 Range/Units 14:59 14:59 WBC (3.8-10.6) k/uL RBC (3.80-5.40) m/uL Hgb (11.4-16.0) gm/dL Hct (34.0-46.0) % MCV (80.0-100.0) fL MCH (25.0-35.0) pg MCHC (31.0-37.0) g/dL RDW (11.5-15.5) % Plt Count (150-450) k/uL MPV Neutrophils % % Lymphocytes % % Monocytes % % Eosinophils % % Basophils % % Neutrophils # (1.3-7.7) k/uL Lymphocytes # (1.0-4.8) k/uL Monocytes # (0-1.0) k/uL Eosinophils # (0-0.7) k/uL Basophils # (0-0.2) k/uL PT (9.0-12.0) sec INR (<1.2) APTT (22.0-30.0) sec Sodium 141 (137-145) mmol/L Potassium 3.7 (3.5-5.1) mmol/L Chloride 113 H (98-107) mmol/L Carbon Dioxide 27 (22-30) mmol/L Anion Gap 1 mmol/L BUN 18 H (7-17) mg/dL Creatinine 0.67 (0.52-1.04) mg/dL Est GFR (CKD-EPI)AfAm >90 (>60 ml/min/1.73 sqM) Est GFR (CKD-EPI)NonAf 79 (>60 ml/min/1.73 sqM) Glucose 112 H (74-99) mg/dL Calcium 8.2 L (8.4-10.2) mg/dL Total Bilirubin 0.4 (0.2-1.3) mg/dL AST 18 (14-36) U/L ALT 12 (4-34) U/L Alkaline Phosphatase 53 (38-126) U/L Troponin I <0.012 (0.000-0.034) ng/mL Total Protein 5.4 L (6.3-8.2) g/dL Albumin 2.7 L (3.5-5.0) g/dL Urine Color Urine Appearance (Clear) Urine pH (5.0-8.0) Ur Specific [place] (1.001-1.035) Urine Protein (Negative) Urine Glucose (UA) (Negative) Urine Ketones (Negative) Urine Blood (Negative) Urine Nitrite (Negative) Urine Bilirubin (Negative) Urine Urobilinogen (<2.0) mg/dL Ur Leukocyte Esterase (Negative) Urine RBC (0-5) /hpf Urine WBC (0-5) /hpf Urine WBC Clumps (None) /hpf Urine Bacteria (None) /hpf Urine Opiates Screen (NotDetected) Ur Oxycodone Screen (NotDetected) Urine Methadone Screen (NotDetected) Ur Propoxyphene Screen (NotDetected) Ur Barbiturates Screen (NotDetected) U Tricyclic Antidepress (NotDetected) Ur Phencyclidine Scrn (NotDetected) Ur Amphetamines Screen (NotDetected) U Methamphetamines Scrn (NotDetected) U Benzodiazepines Scrn (NotDetected) Urine Cocaine Screen (NotDetected) U Marijuana (THC) Screen (NotDetected) Disposition Clinical Impression: Urinary tract infection, Decreased responsiveness Disposition: HOME SELF-CARE Condition: Good Instructions (If sedation given, give patient instructions): Urinary Tract Infection in Women (ED) Prescriptions: Nitrofurantoin Monohyd/M-Cryst [Macrobid] 100 mg PO Q12HR #14 cap Is patient prescribed a controlled substance at d/c from ED?: No Referrals: Matthew Davenport MD [Primary Care Provider] - 1-2 days Time of Disposition: 16:20
[2020-09-04 15:05] LABS: Basophils % (A) 1 %; Eosinophils # (A) 0.1 k/uL (0-0.7); Eosinophils % (A) 2 %; HCT 37.5 % (34.0-46.0); HGB 12.4 gm/dL (11.4-16.0); Lymphocytes # (A) 1.5 k/uL (1.0-4.8); Lymphocytes % (A) 19 %; MCH 30.7 pg (25.0-35.0); MCHC 33.1 g/dL (31.0-37.0); MCV 92.7 fL (80.0-100.0); Mean Platelet Volume 7.7; Monocytes # (A) 0.3 k/uL (0-1.0); Monocytes % (A) 4 %; Neutrophils % (A) 74 %; Platelet Count 177 k/uL (150-450); RBC 4.04 m/uL (3.80-5.40); RDW 11.9 % (11.5-15.5)
[2020-09-04 15:17] LABS: Appearance,Urine Turbid (Clear); Bacteria,Urine Many /hpf; Bilirubin,Urine Negative (Negative); Blood,Urine Large (Negative); Color,Urine Light Brown; Glucose,Urine (UA) Negative (Negative); Ketones,Urine Negative (Negative); Leukocyte Esterase,Urine Large (Negative); Nitrite,Urine Positive (Negative); Protein,Urine 2+ (Negative); RBC,Urine >182 /hpf (0-5); Specific Gravity,Urine 1.019 (1.001-1.035); Urobilinogen,Urine <2.0 mg/dL (<2.0); WBC,Urine >182 /hpf (0-5)
[2020-09-04 15:19] LABS: ALT 12 U/L (4-34); AST 18 U/L (14-36); African American GFR (CKD) >90 (>60 ml/min/1.73 sqM); Albumin 2.7 g/dL (3.5-5.0); Alkaline Phosphatase 53 U/L (38-126); Anion Gap 1 mmol/L; Blood Urea Nitrogen 18 mg/dL (7-17); Calcium 8.2 mg/dL (8.4-10.2); Carbon Dioxide 27 mmol/L (22-30); Chloride 113 mmol/L (98-107); Glucose 112 mg/dL (74-99); Non-African American GFR(CKD) 79 (>60 ml/min/1.73 sqM); Partial Thromboplastin Time 23.8 sec (22.0-30.0); Potassium 3.7 mmol/L (3.5-5.1); Prothrombin Time 10.6 sec (9.0-12.0); Sodium 141 mmol/L (137-145); Total Bilirubin 0.4 mg/dL (0.2-1.3); Total Protein 5.4 g/dL (6.3-8.2)
[2020-09-04 15:20] LABS: Amphetamine Screen,Urine Not Detected (NotDetected); Barbiturate Screen,Urine Not Detected (NotDetected); Benzodiazepines Screen,Urine Not Detected (NotDetected); Cocaine Screen,Urine Not Detected (NotDetected); Methadone Screen, Urine Not Detected (NotDetected); Opiate Screen,Urine Not Detected (NotDetected); Oxycodone Screen, Urine Not Detected (NotDetected); Phencyclidine Screen,Urine Not Detected (NotDetected); Tricyclic Antidepressant,Urine Detected (NotDetected); Urn Cannabinoid Scrn Not Detected (NotDetected)
--- NOTE | 2020-09-04 15:26 | XR ---
EXAMINATION TYPE: XR chest 1V portable DATE OF EXAM: 09/04/2020 COMPARISON: Prior chest x-ray 08/12/2020 HISTORY: Altered mental status TECHNIQUE: Single frontal view of the chest is obtained. FINDINGS: The heart remains enlarged. There is tracheal deviation towards the right. No evident pneu mothorax or sizable effusion. Patchy basilar density persists. Aorta shows dense calcification. Some air suspected within the esophagus in the mid chest. IMPRESSION: Stable cardiomegaly. There may be basilar atelectasis. Patient with known goiter.
[2020-09-04] MEDS ORDERED: cefTRIAXone IN SWFI 1,000 MG/10 ML SYRINGE IVP STA (15:45)
[2020-09-04 17:08] VITALS: BP 133/79; PULSE 72; RESP 18; TEMP 97.8
== END 2020-09-04 17:33 | disposition home or self-care (01) ==
LOC: EC 13:32
DX: N39.0 Urinary tract infection, site not specified (principal); R41.89 Other symptoms and signs involving cognitive functions and awareness; I10 Essential (primary) hypertension; E78.5 Hyperlipidemia, unspecified; F03.90 Unspecified dementia, unspecified severity, without behavioral disturbance, psychotic disturbance, mood disturbance, and anxiety; Z79.82 Long term (current) use of aspirin; Z79.899 Other long term (current) drug therapy
CPT/HCPCS: 36415; 93005; 80053; 84484; 85025; 85610; 85730; 81001; 80306; 87086; 87077; 87186; 71045; 99285; 96365; J0696

== ENCOUNTER 2020-09-22 11:07 | Inpatient (IN) | payer MEDICARE, OTHER ==
[2020-09-22] MEDS ORDERED: SODIUM CHLORIDE 0.9% 1,000 ML IV STA ×2 (11:16)
--- NOTE | 2020-09-22 11:22 | ED ---
Altered Mental Status HPI - General Stated Complaint: Dehydration Time Seen by Provider: 09/22/20 11:11 Source: EMS, RN notes reviewed Mode of arrival: EMS Limitations: altered mental status - History of Present Illness Initial Comments: This is an 85-year-old female brought to emergency from via EMS from [facility] for evaluation of weakness, altered mental status, hypoxia. Patient's reportedly has been declining over the last several days unable to tolerate any oral intake and she vomits. Patient has had multiple recent hospitalizations and has been treated for urinary tract infection. No reported fever. Patient reportedly had a low pulse ox and low 80s. Patient is unable to provide any information patient's CODE STATUS is DO NOT RESUSCITATE. Patient had no reported new medication changes. No other associated information was provided. - Related Data Home Medications Medication Instructions Recorded Confirmed Aspirin EC [Ecotrin Low Dose] 81 mg PO DAILY@1200 11/03/17 09/22/20 Donepezil [Aricept] 10 mg PO BID@08,199911/03/17 09/22/20 Simvastatin [Zocor] 20 mg PO HS@199911/03/17 09/22/20 amLODIPine [Norvasc] 2.5 mg PO DAILY@0800 11/03/17 09/22/20 Acetaminophen [Tylenol 8 Hour] 1,300 mg PO TID@0800,1400,1999 PRN 08/12/20 09/22/20 Citalopram Hydrobromide [CeleXA] 20 mg PO DAILY@0800 08/12/20 09/22/20 Ergocalciferol [Vitamin D2 50,000 unit PO FR@79908/12/20 09/22/20 (DRISDOL)] Magnesium Hydroxide [Milk of 1,200 mg PO DAILY@0800 08/12/20 09/22/20 Magnesia] Memantine HCl [Namenda Xr] 21 mg PO DAILY@0800 08/12/20 09/22/20 Vit C/E/Zn/Coppr/Lutein/Zeaxan 1 cap PO DAILY@1200 08/12/20 09/22/20 [Preservision Areds 2 Softgel] Melatonin 5 mg PO HS@199909/04/20 09/22/20 Metoprolol Succinate (ER) [Toprol 12.5 mg PO DAILY@0800 09/04/2020 XL] QUEtiapine [SEROquel] 25 mg PO BID@09/04/20 09/22/20 Ciprofloxacin HCl 500 mg PO BID@09/22/20 09/22/20 HYDROcodone/APAP 5-325MG [Roberts 1 tab PO QID PRN 09/22/20 09/22/20 5-325] Allergies Allergy/AdvReac Type Severity Reaction Status Date / Time No Known Allergies Allergy Verified 09/22/20 12:08 Review of Systems ROS Statement: Those systems with pertinent positive or pertinent negative responses have been documented in the HPI. ROS Other: All systems not noted in ROS Statement are negative. Past Medical History Past Medical History: Dementia, Hyperlipidemia, Hypertension History of Any Multi-Drug Resistant Organisms: None Reported Past Surgical History: Bladder Surgery, Hysterectomy, Orthopedic Surgery Additional Past Surgical History / Comment(s): thyroid, bilateral wrist surgery Past Anesthesia/Blood Transfusion Reactions: No Reported Reaction Past Psychological History: Anxiety Smoking Status: Unknown if ever smoked Past Alcohol Use History: None Reported Past Drug Use History: None Reported - Past Family History Father Family Medical History: Unable to Obtain General Exam Limitations: altered mental status General appearance: alert, in no apparent distress Head exam: Present: atraumatic, normocephalic, normal inspection Eye exam: Present: normal appearance, PERRL, EOMI. Absent: scleral icterus, conjunctival injection, periorbital swelling ENT exam: Present: mucous membranes dry (Extremely dry). Absent: normal oropharynx Neck exam: Present: normal inspection, full ROM. Absent: tenderness, meningis mus, lymphadenopathy Respiratory exam: Present: normal lung sounds bilaterally. Absent: respiratory distress, wheezes, rales, rhonchi, stridor Cardiovascular Exam: Present: regular rate, normal rhythm, normal heart sounds. Absent: systolic murmur, diastolic murmur, rubs, gallop, clicks GI/Abdominal exam: Present: soft, normal bowel sounds. Absent: distended, tenderness, guarding, rebound, rigid Back exam: Absent: CVA tenderness (R), CVA tenderness (L) Neurological exam: Present: alert (Minimally alert, more arousable with painful stimuli), altered Skin exam: Present: warm, dry, intact, normal color. Absent: rash Course Vital Signs 09/22/20 09/22/20 11:11 12:15 Temperature 99.8 F H Pulse Rate 96 95 Respiratory 14 18 Rate Blood Pressure 130/91 141/97 O2 Sat by Pulse 93 L 94 L Oximetry Medical Decision Making - Medical Decision Making 85-year-old presented for d dehydration weakness, altered. Patient patient fou nd to be significantly dehydrated, patient has covid positive. Patient was given 1 L bolus of fluid, started on maintenance fluids. Patient will be admitted for further evaluation treatment. - Lab Data Result diagrams: 09/22/20 11:34 09/22/20 11:34 Lab Results 09/22/20 09/22/20 09/22/20 Range/Units 11:34 11:34 11:34 WBC 6.0 (3.8-10.6) k/uL RBC 5.66 H (3.80-5.40) m/uL Hgb 16.5 H D (11.4-16.0) gm/dL Hct 52.2 H (34.0-46.0) % MCV 92.3 (80.0-100.0) fL MCH 29.1 (25.0-35.0) pg MCHC 31.5 (31.0-37.0) g/dL RDW 12.6 (11.5-15.5) % Plt Count 111 L (150-450) k/uL MPV 10.1 Neutrophils % 72 % Lymphocytes % 22 % Monocytes % 4 % Eosinophils % 0 % Basophils % 1 % Neutrophils # 4.3 (1.3-7.7) k/uL Lymphocytes # 1.3 (1.0-4.8) k/uL Monocytes # 0.2 (0-1.0) k/uL Eosinophils # 0.0 (0-0.7) k/uL Basophils # 0.0 (0-0.2) k/uL PT 10.4 (9.0-12.0) sec INR 1.0 (<1.2) APTT 26.2 (22.0-30.0) sec Sodium 153 H (137-145) mmol/L Potassium 3.9 (3.5-5.1) mmol/L Chloride 117 H (98-107) mmol/L Carbon Dioxide 32 H (22-30) mmol/L Anion Gap 4 mmol/L BUN 45 H (7-17) mg/dL Creatinine 0.91 (0.52-1.04) mg/dL Est GFR (CKD-EPI)AfAm 66 (>60 ml/min/1.73 sqM) Est GFR (CKD-EPI)NonAf 57 (>60 ml/min/1.73 sqM) Glucose 145 H (74-99) mg/dL Plasma Lactic Acid Pepe (0.7-2.0) mmol/L Calcium 9.4 (8.4-10.2) mg/dL Magnesium 2.8 H (1.6-2.3) mg/dL Total Bilirubin 1.0 (0.2-1.3) mg/dL AST 64 H (14-36) U/L ALT 35 H (4-34) U/L Alkaline Phosphatase 65 (38-126) U/L Creatine Kinase 22 L (30-135) U/L Troponin I (0.000-0.034) ng/mL Total Protein 6.7 (6.3-8.2) g/dL Albumin 3.3 L (3.5-5.0) g/dL Coronavirus (PCR) (Not Detectd) 09/22/20 09/22/20 09/22/20 Range/Units 11:34 11:34 11:34 WBC (3.8-10.6) k/uL RBC (3.80-5.40) m/uL Hgb (11.4-16.0) gm/dL Hct (34.0-46.0) % MCV (80.0-100.0) fL MCH (25.0-35.0) pg MCHC (31.0-37.0) g/dL RDW (11.5-15.5) % Plt Count (150-450) k/uL MPV Neutrophils % % Lymphocytes % % Monocytes % % Eosinophils % % Basophils % % Neutrophils # (1.3-7.7) k/uL Lymphocytes # (1.0-4.8) k/uL Monocytes # (0-1.0) k/uL Eosinophils # (0-0.7) k/uL Basophils # (0-0.2) k/uL PT (9.0-12.0) sec INR (<1.2) APTT (22.0-30.0) sec Sodium (137-145) mmol/L Potassium (3.5-5.1) mmol/L Chloride (98-107) mmol/L Carbon Dioxide (22-30) mmol/L Anion Gap mmol/L BUN (7-17) mg/dL Creatinine (0.52-1.04) mg/dL Est GFR (CKD-EPI)AfAm (>60 ml/min/1.73 sqM) Est GFR (CKD-EPI)NonAf (>60 ml/min/1.73 sqM) Glucose (74-99) mg/dL Plasma Lactic Acid Pepe 1.5 (0.7-2.0) mmol/L Calcium (8.4-10.2) mg/dL Magnesium (1.6-2.3) mg/dL Total Bilirubin (0.2-1.3) mg/dL AST (14-36) U/L ALT (4-34) U/L Alkaline Phosphatase (38-126) U/L Creatine Kinase (30-135) U/L Troponin I 0.027 (0.000-0.034) ng/mL Total Protein (6.3-8.2) g/dL Albumin (3.5-5.0) g/dL Coronavirus (PCR) Detected A (Not Detectd) - EKG Data -: EKG Interpreted by Me EKG Comments: EKG performed and 12:23 normal sinus rhythm with axis deviation with a rate of 86 VA 154 QRS 84 QT/QTC 388/464 Disposition Clinical Impression: COVID-19, Dehydration, Hypoxia, Weakness, Confusion, Altered mental status Disposition: ADMITTED IP TO THIS HOSP Condition: Fair Referrals: Matthew Davenport MD [Primary Care Provider] - 1-2 days
[2020-09-22 11:42] LABS: Basophils % (A) 1 %; Eosinophils % (A) 0 %; HCT 52.2 % (34.0-46.0); Lymphocytes # (A) 1.3 k/uL (1.0-4.8); Lymphocytes % (A) 22 %; MCH 29.1 pg (25.0-35.0); MCHC 31.5 g/dL (31.0-37.0); MCV 92.3 fL (80.0-100.0); Mean Platelet Volume 10.1; Monocytes # (A) 0.2 k/uL (0-1.0); Monocytes % (A) 4 %; Neutrophils # (A) 4.3 k/uL (1.3-7.7); Neutrophils % (A) 72 %; Platelet Count 111 k/uL (150-450); RBC 5.66 m/uL (3.80-5.40); RDW 12.6 % (11.5-15.5)
[2020-09-22 11:46] LABS: HGB 16.5 gm/dL (11.4-16.0)
[2020-09-22 11:50] LABS: Partial Thromboplastin Time 26.2 sec (22.0-30.0); Prothrombin Time 10.4 sec (9.0-12.0)
[2020-09-22 11:52] LABS: Albumin 3.3 g/dL (3.5-5.0); Calcium 9.4 mg/dL (8.4-10.2); Magnesium 2.8 mg/dL (1.6-2.3); Potassium 3.9 mmol/L (3.5-5.1); Total Protein 6.7 g/dL (6.3-8.2)
--- NOTE | 2020-09-22 12:30 | XR ---
EXAMINATION TYPE: XR chest 1V portable DATE OF EXAM: 09/22/2020 Comparison: 09/04/2020 Clinical History: 85-year-old female confusion, altered mental status Findings: Heart borderline in size. New patchy mid and lower lung opacities, left greater than right. Atheroscl erotic arch calcifications. Degenerative changes of both shoulder. Impression: New patchy mid and lower lung infiltrates, left greater than right. Correlate for multiple pneumonia including the possibility of atypical pneumonias.
[2020-09-22 13:06] LABS: Appearance,Urine Cloudy (Clear); Bilirubin,Urine Negative (Negative); Blood,Urine Moderate (Negative); Color,Urine Yellow; Glucose,Urine (UA) Negative (Negative); Granular Casts,Urine 4 /lpf (0); Hyaline Casts,Urine 2 /lpf (0-2); Ketones,Urine Negative (Negative); Leukocyte Esterase,Urine Trace (Negative); Mucus,Urine Few /hpf; Nitrite,Urine Negative (Negative); Protein,Urine 2+ (Negative); RBC,Urine 41 /hpf (0-5); Specific Gravity,Urine 1.027 (1.001-1.035); WBC,Urine 17 /hpf (0-5)
[2020-09-22] MEDS ORDERED: ONDANSETRON 4 MG/2 ML VIAL IVP PRN (13:16)
[2020-09-22] MEDS ORDERED: ACETAMINOPHEN TAB 325 MG TAB PO PRN (13:16)
[2020-09-22] MEDS ORDERED: NALOXONE 0.4 MG/ML 1 ML VIAL IV PRN (13:16)
[2020-09-22] MEDS ORDERED: DEXAMETHASONE SOD PHOSPHATE 4 MG/ML 1 ML VIAL IV STA (13:19)
[2020-09-22] MEDS ORDERED: HYDROcodone/APAP 5-325MG 1 EACH TAB PO PRN (15:49)
[2020-09-22] MEDS ORDERED: NON FORMULARY DRUG (Acetaminophen [Tylenol 8 Hour] 650 MG Tablet.Er) PO PRN (15:49)
--- NOTE | 2020-09-22 17:59 | P.CNPUL ---
History of Present Illness Consult date: 09/22/20 Requesting physician: Mina Nicole Reason for consult: dyspnea Chief complaint: Weakness, altered mental status hypoxia History of present illness: 85-year-old female patient who follows with Dr. Davenport as her primary care provider. She has a history of advanced dementia and resides at a local dementia unit/long-term. She has had multiple admissions for altered mental status. Recently here in July 2020. She was brought in today with altered mental status, declining over the past couple of days. No oral intake. She is non-verbal for the most part. Chest x-ray revealed new patchy mid and lower lobe infiltrates left greater than right and we're consulted for the same. She is positive for the coronavirus. She is seen tonight in the emergency room. Her eyes are open easy enough to the ceiling. She is moaning, moving all fours. White count 6.0. Hemoglobin 16.5. D-dimer 3.21. Sodium 153. Potassium 3.9. Creatinine 0.91. Urinalysis cloudy with 2+ proteins moderate blood high WBCs. She's been initiated on D5 and half normal saline at 125 an hour and she was given Decadron 6 mg IVP 1. Maintaining O2 saturations in the 90s on 4 L/m per nasal cannula. Review of Systems ROS unobtainable: due to mental status Past Medical History Past Medical History: Dementia, Hyperlipidemia, Hypertension History of Any Multi-Drug Resistant Organisms: None Reported Past Surgical History: Bladder Surgery, Hysterectomy, Orthopedic Surgery Additional Past Surgical History / Comment(s): thyroid, bilateral wrist surgery Past Anesthesia/Blood Transfusion Reactions: No Reported Reaction Past Psychological History: Anxiety Smoking Status: Unknown if ever smoked Past Alcohol Use History: None Reported Past Drug Use History: None Reported - Past Family History Father Family Medical History: Unable to Obtain Medications and Allergies Home Medications Medication Instructions Recorded Confirmed Type Aspirin EC [Ecotrin Low Dose] 81 mg PO DAILY@119911/03/17 09/22/20 History Donepezil [Aricept] 10 mg PO BID@0800,199911/03/17 09/22/20 History Simvastatin [Zocor] 20 mg PO HS@199911/03/17 09/22/20 History amLODIPine [Norvasc] 2.5 mg PO DAILY@0800 11/03/17 09/22/20 History Acetaminophen [Tylenol 8 Hour] 1,300 mg PO TID@0800,1399,1999 PRN 08/12/20 09/22/20 History Citalopram Hydrobromide [CeleXA] 20 mg PO DAILY@0800 08/12/20 09/22/20 History Ergocalciferol [Vitamin D2 50,000 unit PO FR@0800 08/12/20 09/22/20 History (DRISDOL)] Magnesium Hydroxide [Milk of 1,200 mg PO DAILY@0800 08/12/20 09/22/20 History Magnesia] Memantine HCl [Namenda Xr] 21 mg PO DAILY@0800 08/12/20 09/22/20 History Vit C/E/Zn/Coppr/Lutein/Zeaxan 1 cap PO DAILY@1200 08/12/20 09/22/20 History [Preservision Areds 2 Softgel] Melatonin 5 mg PO HS@199909/04/20 09/22/20 History Metoprolol Succinate (ER) [Toprol 12.5 mg PO DAILY@0809/04/20 09/22/20 History XL] QUEtiapine [SEROquel] 25 mg PO BID@799,199909/04/20 09/22/20 History Ciprofloxacin HCl 500 mg PO BID@799,199909/22/20 09/22/20 History HYDROcodone/APAP 5-325MG [[place] 1 tab PO QID PRN 09/22/20 09/22/20 History 5-325] Allergies Allergy/AdvReac Type Severity Reaction Status Date / Time No Known Allergies Allergy Verified 09/22/20 12:08 Physical Exam Vitals: Vital Signs Temp Pulse Resp BP Pulse Ox 09/22/20 14:47 92 21 143/98 96 09/22/20 14:30 93 21 121/82 94 L 09/22/20 14:00 87 20 142/94 92 L 09/22/20 13:30 90 16 139/93 93 L 09/22/20 13:00 93 16 137/84 93 L 09/22/20 12:30 85 20 141/97 96 09/22/20 12:15 99.8 F H 95 18 141/97 94 L 09/22/20 12:00 93 12 125/98 95 09/22/20 11:30 101 H 15 130/91 93 L 09/22/20 11:11 96 14 130/91 93 L Intake and Output 09/22/20 09/22/20 09/22/20 06:59 14:59 22:59 Other: Weight 64.864 kg GENERAL EXAM: Alert, frail, nonverbal, cachectic 85-year-old female patient, on 4 L nasal cannula, comfortable in no apparent distress. HEAD: Normocephalic. EYES: Normal reaction of pupils, equal size. NOSE: Clear with pink turbinates. THROAT: Dry mucous membranes. No erythema or exudates. NECK: No masses, no JVD. CHEST: No chest wall deformity. LUNGS: Equal air entry with lateral scattered rhonchi. CVS: S1 and S2 normal with no audible murmur, regular rhythm. ABDOMEN: No hepatosplenomegaly, normal bowel sounds, no guarding or rigidity. SPINE: Kyphoscoliosis SKIN: No rashes CENTRAL NERVOUS SYSTEM: Severe dementia. Tone is normal in all 4 extremities. EXTREMITIES: There is no peripheral edema. No clubbing, no cyanosis. Peripheral pulses are intact. Results - Laboratory Findings CBC and BMP: 09/22/20 11:34 09/22/20 11:34 PT/INR, D-dimer PT 10.4 sec (9.0-12.0) 09/22/20 11:34 INR 1.0 (<1.2) 09/22/20 11:34 D-Dimer 3.21 mg/L FEU (<0.60) H 09/22/20 11:34 Abnormal lab findings: Abnormal Labs 09/22/20 09/22/20 09/22/20 11:34 11:34 11:34 RBC 5.66 H Hgb 16.5 H D Hct 52.2 H Plt Count 111 L D-Dimer Sodium 153 H Chloride 117 H Carbon Dioxide 32 H BUN 45 H Glucose 145 H Magnesium 2.8 H AST 64 H ALT 35 H Creatine Kinase 22 L C-Reactive Protein Albumin 3.3 L Urine Appearance Urine Protein Urine Blood Ur Leukocyte Esterase Urine RBC Urine WBC Urine Mucus Coronavirus (PCR) Detected A 09/22/20 09/22/20 09/22/20 11:34 11:34 11:40 RBC Hgb Hct Plt Count D-Dimer 3.21 H Sodium Chloride Carbon Dioxide BUN Glucose Magnesium AST ALT Creatine Kinase C-Reactive Protein 78.4 H Albumin Urine Appearance Cloudy H Urine Protein 2+ H Urine Blood Moderate H Ur Leukocyte Esterase Trace H Urine RBC 41 H Urine WBC 17 H Urine Mucus Few H Coronavirus (PCR) - Diagnostic Findings Chest x-ray: image reviewed Assessment and Plan Assessment: 1 Acute hypoxic respiratory failure secondary to CoVID 19 pneumonitis 2 Elevated d-dimer secondary to above 3 Hypernatremia 4 Urinary tract infection 5 Severe dementia 6 Hypertension 7 Hyperlipidemia 8 History of depression 9 Poor overall functional performance based on the above-mentioned multiple comorbidities Plan: The patient was seen and evaluated by Dr. Vaughn Chest x-ray and labs reviewed Titrate O2 to maintain O2 saturations greater than 88% Add Lovenox, Decadron, Pepcid, vitamin C, vitamin D, zinc Condition is guarded/poor She is a DO NOT RESUSCITATE/DO NOT INTUBATE CODE STATUS We will continue to follow and make further recommendations based on her clinical status I, the cosigning physician, performed a history & physical examination of the patient. Lungs sounds with bilateral scattered rhonchi. Maintaining good O2 saturations in the 90s on 4 L/m per nasal cannula. I discussed the assessment and plan of care with my nurse practitioner, Sandra Noriega. I attest to the above consultation as dictated by her. Time with Patient: Greater than 30
[2020-09-22] MEDS: DEXTROSE 5%-0.45% NACL 1,000 ML IV SCH (18:43)
[2020-09-22] MEDS: DONEPEZIL 10 MG TAB PO SCH (20:04)
[2020-09-22] MEDS: ATORVASTATIN 10 MG TAB PO SCH (20:04)
[2020-09-22] MEDS: MELATONIN 5 MG TABLET PO SCH (20:05)
[2020-09-22] MEDS: QUEtiapine 25 MG TAB PO SCH (20:05)
[2020-09-22] MEDS ORDERED: ENOXAPARIN 40 MG/0.4 ML SYRINGE SQ SCH (21:00)
[2020-09-22] MEDS ORDERED: cloNIDine 0.1 MG/24HR PATCH TRANSDERM SCH (21:00)
--- NOTE | 2020-09-22 22:48 | P.HPIM ---
History of Present Illness H&P Date: 09/22/20 Chief Complaint: Weakness History of presenting complaint: This is a 85-year-old patient of visiting physicians Dr. Davenport. Known chronic stable medical conditions include dementia, hypertension, hyperlipidemia. Patient presented to the ER. From [facility] coming here for weakness altered mental status hypoxia. Patient has been declining over several days unable to take anything by mouth and vomiting. Patient's had multiple recent UTIs. No reported fever. Patient's pulse ox with daughter the 80s. Patient is a DO NOT RESUSCITATE. In the ER patient is awake but somewhat delirium moving ahead about. Has a Gómez catheter. Moving all her limbs. Not able to get any history from the patient Review of systems: Cannot be obtained as patient is delirious Past medical history to include: Dementia, hypertension, hyperlipidemia Social history: Lives at [facility]. History of smoking unknown. No alcohol history known. Family history: Patient unable to tell Physical examination: VITAL SIGNS: 99.8, 95, 18, 140 11/05/1996, 94% on 4 L GENERAL: BMI 21.7, loss of subcutaneous fat and muscle mass, delirious. EYES: Pupils equal. Conjunctiva normal. HEENT: [External appearance of nose and ears normal, oral cavity is very dry with superficial ulcers and some bleeding with dry blood. NECK: JVD unable to assess masses not palpable. HEART: First and second heart sounds are normal; no edema. LUNGS: Respiratory rate increased; decreased breath sounds. ABDOMEN: Soft, nontender, liver spleen not palpable, no masses palpable. PSYCH: [Patient is delirious l. NEUROLOGICAL: [Cranial nerves grossly intact; no facial asymmetry, moving all 4 limbs LYMPHATICS: No lymph nodes palpable in the axilla and neck INVESTIGATIONS, reviewed in the clinical context: White count 6 hemoglobin 16.5 platelets 111 sodium 153 potassium 3.9 bun 45 creatinine 0.91 D-dimer 3.21 troponin I 0.027 CRP 78.4 UA positive for blood Coronavirus P/Cr-detected EKG tracing personally reviewed by me-normal sinus rhythm nonspecific ST segment changes Chest x-ray film personally reviewed by me-bilateral scattered infiltrates Assessment: -Bilateral pneumonia from COVID 19 -Acute hypoxic respiratory failure from above -Acute metabolic encephalopathy and acute delirium from above -Hypernatremia, for free water deficit from decreased oral intake, with hyperchloremia -Metabolic alkalosis from volume contraction -Severe clinical dehydration -Mild protein calorie malnutrition from decreased oral intake. Patient has decreased muscle mass -Alzheimer's dementia -Hyperlipidemia -Essential hypertension -Anxiety depression otherwise specified -DO NOT RESUSCITATE Plan: Patient placed on steroids and Lovenox. Aspiration precautions. Oral feeding with assistance. Oral toilet. Her blood pressure 4 right now use a Catapres patch. IV fluids in form of D5 0.4. Prognosis guarded. Pulmonary was consulted. Expect patient to be in the hospital for at least overnight as patient is doing rather poorly with a high chance of morbidity mortality. Past Medical History Past Medical History: Dementia, Hyperlipidemia, Hypertension History of Any Multi-Drug Resistant Organisms: None Reported Past Surgical History: Bladder Surgery, Hysterectomy, Orthopedic Surgery Additional Past Surgical History / Comment(s): thyroid, bilateral wrist surgery Past Anesthesia/Blood Transfusion Reactions: No Reported Reaction Past Psychological History: Anxiety Smoking Status: Unknown if ever smoked Past Alcohol Use History: None Reported Past Drug Use History: None Reported - Past Family History Father Family Medical History: Unable to Obtain Medications and Allergies Home Medications Medication Instructions Recorded Confirmed Type Aspirin EC [Ecotrin Low Dose] 81 mg PO DAILY@1200 11/03/17 09/22/20 History Donepezil [Aricept] 10 mg PO BID@08,199911/03/17 09/22/20 History Simvastatin [Zocor] 20 mg PO HS@199911/03/17 09/22/20 History amLODIPine [Norvasc] 2.5 mg PO DAILY@0800 11/03/17 09/22/20 History Acetaminophen [Tylenol 8 Hour] 1,300 mg PO TID@0800,1399,1999 PRN 08/12/20 09/22/20 History Citalopram Hydrobromide [CeleXA] 20 mg PO DAILY@0800 08/12/20 09/22/20 History Ergocalciferol [Vitamin D2 50,000 unit PO FR@79908/12/20 09/22/20 History (DRISDOL)] Magnesium Hydroxide [Milk of 1,200 mg PO DAILY@0800 08/12/20 09/22/20 History Magnesia] Memantine HCl [Namenda Xr] 21 mg PO DAILY@0800 08/12/20 09/22/20 History Vit C/E/Zn/Coppr/Lutein/Zeaxan 1 cap PO DAILY@1200 08/12/20 09/22/20 History [Preservision Areds 2 Softgel] Melatonin 5 mg PO HS@199909/04/20 09/22/20 History Metoprolol Succinate (ER) [Toprol 12.5 mg PO DAILY@0800 09/04/20 09/22/20 History XL] QUEtiapine [SEROquel] 25 mg PO BID@09/04/20 09/22/20 History Ciprofloxacin HCl 500 mg PO BID@799,199909/22/20 09/22/20 History HYDROcodone/APAP 5-325MG [[place] 1 tab PO QID PRN 09/22/20 09/22/20 History 5-325] Allergies Allergy/AdvReac Type Severity Reaction Status Date / Time No Known Allergies Allergy Verified 09/22/20 12:08 Physical Exam Vitals: Vital Signs Temp Pulse Resp BP Pulse Ox 09/22/20 22:00 68 16 117/77 97 09/22/20 21:00 86 16 147/98 92 L 09/22/20 19:58 84 16 146/92 92 L 09/22/20 18:30 98.2 F 87 20 159/98 93 L 09/22/20 18:00 89 22 162/90 95 09/22/20 17:30 86 20 153/88 95 09/22/20 17:00 89 16 133/91 94 L 09/22/20 16:30 82 20 145/88 95 09/22/20 16:00 85 16 155/98 94 L 09/22/20 15:30 87 19 150/97 94 L 09/22/20 15:00 87 17 143/98 95 09/22/20 14:47 92 21 143/98 96 09/22/20 14:30 93 21 121/82 94 L 09/22/20 14:00 87 20 142/94 92 L 09/22/20 13:30 90 16 139/93 93 L 09/22/20 13:00 93 16 137/84 93 L 09/22/20 12:30 85 20 141/97 96 09/22/20 12:15 99.8 F H 95 18 141/97 94 L 09/22/20 12:00 93 12 125/98 95 09/22/20 11:30 101 H 15 130/91 93 L 09/22/20 11:11 96 14 130/91 93 L Intake and Output 09/22/20 09/22/20 09/22/20 06:59 14:59 22:59 Output Total 100 Balance -100 Output: Urine 100 Other: Weight 64.864 kg Results CBC & Chem 7: 09/22/20 11:34 09/22/20 11:34 Labs: Abnormal Lab Results - Last 24 Hours (Table) 09/22/20 09/22/20 09/22/20 Range/Units 11:34 11:34 11:34 RBC 5.66 H (3.80-5.40) m/uL Hgb 16.5 H D (11.4-16.0) gm/dL Hct 52.2 H (34.0-46.0) % Plt Count 111 L (150-450) k/uL D-Dimer (<0.60) mg/L FEU Sodium 153 H (137-145) mmol/L Chloride 117 H (98-107) mmol/L Carbon Dioxide 32 H (22-30) mmol/L BUN 45 H (7-17) mg/dL Glucose 145 H (74-99) mg/dL Magnesium 2.8 H (1.6-2.3) mg/dL AST 64 H (14-36) U/L ALT 35 H (4-34) U/L Creatine Kinase 22 L (30-135) U/L C-Reactive Protein (<10.0) mg/L Albumin 3.3 L (3.5-5.0) g/dL Urine Appearance (Clear) Urine Protein (Negative) Urine Blood (Negative) Ur Leukocyte Esterase (Negative) Urine RBC (0-5) /hpf Urine WBC (0-5) /hpf Urine Mucus (None) /hpf Coronavirus (PCR) Detected A (Not Detectd) 09/22/20 09/22/20 09/22/20 Range/Units 11:34 11:34 11:40 RBC (3.80-5.40) m/uL Hgb (11.4-16.0) gm/dL Hct (34.0-46.0) % Plt Count (150-450) k/uL D-Dimer 3.21 H (<0.60) mg/L FEU Sodium (137-145) mmol/L Chloride (98-107) mmol/L Carbon Dioxide (22-30) mmol/L BUN (7-17) mg/dL Glucose (74-99) mg/dL Magnesium (1.6-2.3) mg/dL AST (14-36) U/L ALT (4-34) U/L Creatine Kinase (30-135) U/L C-Reactive Protein 78.4 H (<10.0) mg/L Albumin (3.5-5.0) g/dL Urine Appearance Cloudy H (Clear) Urine Protein 2+ H (Negative) Urine Blood Moderate H (Negative) Ur Leukocyte Esterase Trace H (Negative) Urine RBC 41 H (0-5) /hpf Urine WBC 17 H (0-5) /hpf Urine Mucus Few H (None) /hpf Coronavirus (PCR) (Not Detectd)
[2020-09-23] MEDS: methylPREDNISolone SOD SUCCI 40 MG/ML 1 ML VIAL IV SCH ×4 (00:43→23:41)
[2020-09-23] MEDS: DEXTROSE 5%-0.45% NACL 1,000 ML IV SCH ×3 (02:47→20:23)
[2020-09-23] MEDS ORDERED: MORPHINE SULFATE 2 MG/ML SYRINGE IVP STA (06:40)
[2020-09-23] MEDS ORDERED: METOPROLOL SUCCINATE (ER) 25 MG TAB.ER.24H PO SCH (08:00)
[2020-09-23] MEDS: CHOLECALCIFEROL 400 UNIT TAB PO SCH (09:53)
[2020-09-23] MEDS: VIT A,C & E-LUTEIN-MINERALS 1 EACH TAB PO SCH (09:53)
[2020-09-23] MEDS: ASCORBIC ACID 500 MG TAB PO SCH (09:53)
[2020-09-23] MEDS: MEMANTINE 5 MG TAB PO SCH (09:53)
[2020-09-23] MEDS: CITALOPRAM HYDROBROMIDE 20 MG TAB PO SCH (09:54)
[2020-09-23] MEDS: ZINC SULFATE 220 MG CAP PO SCH (09:54)
[2020-09-23] MEDS: QUEtiapine 25 MG TAB PO SCH ×2 (09:55→20:31)
[2020-09-23] MEDS: ENOXAPARIN 60 MG/0.6 ML SYRINGE SQ SCH ×2 (09:55→22:08)
[2020-09-23] MEDS: ASPIRIN 81 MG PO SCH (09:55)
[2020-09-23] MEDS: MEMANTINE 10 MG TAB PO SCH (09:55)
[2020-09-23] MEDS: amLODIPine 2.5 MG TAB PO SCH (09:55)
--- NOTE | 2020-09-23 15:30 | P.PN ---
Subjective Progress Note Date: 09/23/20 On today's evaluation of 09/23/2020, the patient is more lethargic, she is moaning, she is not holding any conversation. Oxidation that'll worsen the patient is currently on 6 L of oxygen by nasal cannula. She is nonverbal. Her chest x-ray showing patchy bilateral pulmonary infiltrates consistent with over 19 related pneumonia. This patient has severe dementia and she has a DNR/DNI CODE STATUS. She is currently on Decadron. She is also on Lovenox. No new labs are available from today focused on his elevated suspecting an underlying UTI. She has a Gómez catheter in place. IV fluids are running in the form of D5 half-normal at the rate of 1 25 mL an hour. Her CRP was 78, CPK was 22, lactic acid level was at 1.5 Objective - Vital Signs Vital signs: Vital Signs Temp 97.9 F 09/23/20 14:00 Pulse 70 09/23/20 14:00 Resp 12 09/23/20 14:00 BP 117/73 09/23/20 14:00 Pulse Ox 92 L 09/23/20 14:00 Intake & Output 09/22/20 09/23/20 09/23/20 18:59 06:59 18:59 Intake Total 925 Output Total 100 250 250 Balance -100 -250 675 Weight 64.864 kg Intake: Intake, IV Titration 875 Amount Dextrose 5%-0.45% NaCl 1, 875 000 ml @ 125 mls/hr IV . Q8H [facility] Rx#:[id number] Oral 50 Output: Urine 100 250 250 Other: Voiding Method Indwelling Catheter - Exam GENERAL EXAM: Alert, frail, nonverbal, cachectic 85-year-old female patient, on 6 L nasal cannula, comfortable in no apparent distress. HEAD: Normocephalic. EYES: Normal reaction of pupils, equal size. NOSE: Clear with pink turbinates. THROAT: Dry mucous membranes. No erythema or exudates. NECK: No masses, no JVD. CHEST: No chest wall deformity. LUNGS: Equal air entry with lateral scattered rhonchi. CVS: S1 and S2 normal with no audible murmur, regular rhythm. ABDOMEN: No hepatosplenomegaly, normal bowel sounds, no guarding or rigidity. SPINE: Kyphoscoliosis SKIN: No rashes CENTRAL NERVOUS SYSTEM: Severe dementia. Tone is normal in all 4 extremities. EXTREMITIES: There is no peripheral edema. No clubbing, no cyanosis. Peripheral pulses are intact. - Labs CBC & Chem 7: 09/22/20 11:34 09/22/20 11:34 Labs: Abnormal Lab Results - Last 24 Hours (Table) 09/22/20 09/22/20 12 Range/Units 11:34 11:34 11:34 D-Dimer 3.21 H (<0.60) mg/L FEU C-Reactive Protein 78.4 H (<10.0) mg/L Procalcitonin 0.21 H (0.02-0.09) ng/mL Microbiology - Last 24 Hours (Table) 09/22/20 11:34 Blood Culture - Preliminary Blood No Growth after 24 hours 09/22/20 11:40 Urine Culture - Preliminary Urine,Voided Assessment and Plan Plan: 1 Acute hypoxic respiratory failure secondary to CoVID 19 pneumonitis 2 Elevated d-dimer secondary to above 3 Hypernatremia, currently on D5 half-normal saline at the rate of 125cc/hr 4 Urinary tract infection, suspected, awaiting further cultures 5 Severe dementia 6 Hypertension 7 Hyperlipidemia 8 History of depression 9 Poor overall functional performance based on the above-mentioned multiple comorbidities Plan: Titrate O2 to maintain O2 saturations greater than 88%Maryjane currently on 6 L of oxygen by nasal cannula continue Lovenox, Decadron, Pepcid, vitamin C, vitamin D, zinc Condition is guarded/poor She is a DO NOT RESUSCITATE/DO NOT INTUBATE CODE STATUS suggest covering the patient with IV RocephinFor possible UTI. We will continue to follow and make further recommendations based on her clinical status
[2020-09-23] MEDS: DONEPEZIL 10 MG TAB PO SCH ×2 (16:06→20:30)
[2020-09-23] MEDS: MAGNESIUM HYDROXIDE 2,400 MG/10 ML CUP PO SCH (16:06)
[2020-09-23 19:12] LABS: Glucose,Whole Blood 161 mg/dL (75-99)
[2020-09-23] MEDS: ATORVASTATIN 10 MG TAB PO SCH (20:30)
[2020-09-23] MEDS: MELATONIN 5 MG TABLET PO SCH (20:31)
[2020-09-24] MEDS: DEXTROSE 5%-0.45% NACL 1,000 ML IV SCH ×3 (01:56→14:30)
[2020-09-24 05:50] LABS: Basophils % (A) 0 %; Eosinophils % (A) 0 %; Hypochromasia Slight; Lymphocytes % (A) 9 %; MCH 29.7 pg (25.0-35.0); MCHC 31.7 g/dL (31.0-37.0); MCV 93.7 fL (80.0-100.0); Mean Platelet Volume 9.8; Monocytes # (A) 0.3 k/uL (0-1.0); Monocytes % (A) 2 %; Neutrophils # (A) 9.7 k/uL (1.3-7.7); Neutrophils % (A) 88 %; Platelet Count 135 k/uL (150-450); RDW 12.4 % (11.5-15.5)
--- NOTE | 2020-09-24 09:16 | XR ---
EXAMINATION TYPE: XR chest 1V DATE OF EXAM: 09/24/2020 COMPARISON: chest x-ray 09/22/2020 HISTORY: Covid TECHNIQUE: Single frontal view of the chest is obtained. FINDINGS: Bilateral airspace disease has become more conspicuous. Heart is enlarged. No evident pneu mothorax or pleural effusion. Aorta is dense. IMPRESSION: Correlate for pneumonia versus edema.
[2020-09-24 09:44] LABS: African American GFR (CKD) 90.3 (60.0-200.0); Albumin 3.1 g/dL (3.80-4.90); Albumin/Globulin Ratio 1.41 (1.60-3.17); Anion Gap 8.3 mmol/L (4.00-12.00); BUN/Creat Ratio 34.29 Ratio (12.00-20.00); Calcium 9.1 mg/dL (8.7-10.3); Carbon Dioxide 29.7 mmol/L (21.6-31.8); Globulin 2.2 g/dL (1.6-3.3); Non-African American GFR(CKD) 77.9 (60.0-200.0); Potassium 3.5 mmol/L (3.5-5.5); Total Bilirubin 0.7 mg/dL (0.3-1.2); Total Protein 5.3 g/dL (6.2-8.2)
--- NOTE | 2020-09-24 11:23 | P.PN ---
Progress Note - Text Progress Note Date: 09/23/20 Chief Complaint: Weakness History of presenting complaint: This is a 85-year-old patient of visiting physicians Dr. Davenport. Known chronic stable medical conditions include dementia, hypertension, hyperlipidemia. Patient presented to the ER. From [facility] coming here for weakness altered mental status hypoxia. Patient has been declining over several days unable to take anything by mouth and vomiting. Patient's had multiple recent UTIs. No reported fever. Patient's pulse ox with daughter the 80s. Patient is a DO NOT RESUSCITATE. In the ER patient is awake but somewhat delirium moving ahead about. Has a Gómez catheter. Moving all her limbs. Not able to get any history from the patient today--laying in bed. Not communicating much. Minimal oral intake. Review of systems: Cannot be obtained as patient is delirious Current medications reviewed in today's electronic records Physical examination: VITAL SIGNS: 97.5, 71, 16, 132/81, 94% on 6 L GENERAL: , loss of subcutaneous fat and muscle mass, delirious. EYES: Pupils equal. Conjunctiva normal. HEENT: [External appearance of nose and ears normal, oral cavity-less dry mucous membranes NECK: JVD unable to assess masses not palpable. HEART: First and second heart sounds are normal; no edema. LUNGS: Respiratory rate increased; decreased breath sounds. ABDOMEN: Soft, nontender, liver spleen not palpable, no masses palpable. PSYCH: [Patient is delirious l. NEUROLOGICAL: [Cranial nerves grossly intact; no facial asymmetry, moving all 4 limbs INVESTIGATIONS, reviewed in the clinical context: White count 6 hemoglobin 16.5 platelets 111 sodium 153 potassium 3.9 bun 45 creatinine 0.91 D-dimer 3.21 troponin I 0.027 CRP 78.4 UA positive for blood Coronavirus P/Cr-detected EKG tracing personally reviewed by me-normal sinus rhythm nonspecific ST segment changes Chest x-ray film personally reviewed by me-bilateral scattered infiltrates Assessment: -Bilateral pneumonia from COVID 19-slow to respond -Acute hypoxic respiratory failure from above-on 6 L -Acute metabolic encephalopathy and acute delirium from above-slow to respond -Hypernatremia, for free water deficit from decreased oral intake, with hyperchloremia-not improving -Metabolic alkalosis from volume contraction -Severe clinical dehydration -Mild protein calorie malnutrition from decreased oral intake. Patient has decreased muscle mass -Alzheimer's dementia -Hyperlipidemia -Essential hypertension -Anxiety depression otherwise specified -DO NOT RESUSCITATE Plan: Continue current medication treatment plan. Prognosis guarded. Follow lites closely. Multiple comorbidities.
[2020-09-24] MEDS: amLODIPine 2.5 MG TAB PO SCH (11:49)
[2020-09-24] MEDS: CITALOPRAM HYDROBROMIDE 20 MG TAB PO SCH (11:49)
[2020-09-24] MEDS: MEMANTINE 5 MG TAB PO SCH (11:50)
[2020-09-24] MEDS: MEMANTINE 10 MG TAB PO SCH (11:50)
[2020-09-24] MEDS: DONEPEZIL 10 MG TAB PO SCH ×2 (11:50→21:42)
[2020-09-24] MEDS: QUEtiapine 25 MG TAB PO SCH ×2 (11:50→21:42)
[2020-09-24] MEDS: MAGNESIUM HYDROXIDE 2,400 MG/10 ML CUP PO SCH (11:50)
[2020-09-24] MEDS: methylPREDNISolone SOD SUCCI 40 MG/ML 1 ML VIAL IV SCH ×2 (11:50→14:32)
[2020-09-24] MEDS: ASCORBIC ACID 500 MG TAB PO SCH (11:51)
[2020-09-24] MEDS: CHOLECALCIFEROL 400 UNIT TAB PO SCH (11:51)
[2020-09-24] MEDS: ENOXAPARIN 60 MG/0.6 ML SYRINGE SQ SCH ×2 (11:51→21:43)
[2020-09-24] MEDS: ZINC SULFATE 220 MG CAP PO SCH (11:51)
[2020-09-24] MEDS: VIT A,C & E-LUTEIN-MINERALS 1 EACH TAB PO SCH (12:33)
[2020-09-24] MEDS: ASPIRIN 81 MG PO SCH (12:33)
--- NOTE | 2020-09-24 12:59 | P.PN ---
Subjective Progress Note Date: 09/24/20 On today's evaluation of 09/23/2020, the patient is more lethargic, she is moaning, she is not holding any conversation. Oxidation that'll worsen the patient is currently on 6 L of oxygen by nasal cannula. She is nonverbal. Her chest x-ray showing patchy bilateral pulmonary infiltrates consistent with over 19 related pneumonia. This patient has severe dementia and she has a DNR/DNI CODE STATUS. She is currently on Decadron. She is also on Lovenox. No new labs are available from today focused on his elevated suspecting an underlying UTI. She has a Gómez catheter in place. IV fluids are running in the form of D5 half-normal at the rate of 1 25 mL an hour. Her CRP was 78, CPK was 22, lactic acid level was at 1.5 On today's evaluation, the patient is being seen on 09/24/2020 for follow-up regarding her COVID pneumonia. The patient had a follow-up chest x-ray that showed worsening bilateral pulmonary infiltrates and the patient is currently on 9 L of oxygen by nasal cannula saturation being in the low 90s. The chest x-ray showing bilateral airspace disease and has become more intense and conspicuous. She is having a low-grade fever of 99.9. She is quite lethargic. Based on an swering question. His sodium level is up to 154 and the patient is currently on normal saline infusion rate of 125 mL an hour. This is to be adjusted and replaced with D5 water. Her urine culture was positive for group D enterococcus in the blood culture was positive for coagulase-negative staph, probably a contaminant. Objective - Vital Signs Vital signs: Vital Signs Temp 99.9 F H 09/24/20 11:00 Pulse 90 09/24/20 11:00 Resp 17 09/24/20 11:00 BP 149/80 09/24/20 11:00 Pulse Ox 93 L 09/24/20 11:00 Intake & Output 09/23/20 09/24/20 09/24/20 18:59 06:59 18:59 Intake Total 925 2000 Output Total 325 Balance 600 2000 Weight 64.864 kg Intake: Amount of Fluid Infused ( 1000 ml) Intake, IV Titration 875 1000 Amount Dextrose 5%-0.45% NaCl 1, 875 1000 000 ml @ 125 mls/hr IV . Q8H [facility] Rx#:[id number] Oral 50 Output: Urine 325 Other: Voiding Method Indwelling Catheter Indwelling Catheter Indwelling Catheter - Exam GENERAL EXAM: Alert, frail, nonverbal, cachectic 85-year-old female patient, on 9 L nasal cannula, comfortable in no apparent distress. HEAD: Normocephalic. EYES: Normal reaction of pupils, equal size. NOSE: Clear with pink turbinates. THROAT: Dry mucous membranes. No erythema or exudates. NECK: No masses, no JVD. CHEST: No chest wall deformity. LUNGS: Equal air entry with lateral scattered rhonchi. CVS: S1 and S2 normal with no audible murmur, regular rhythm. ABDOMEN: No hepatosplenomegaly, normal bowel sounds, no guarding or rigidity. SPINE: Kyphoscoliosis SKIN: No rashes CENTRAL NERVOUS SYSTEM: Severe dementia. Tone is normal in all 4 extremities. the patient is very much sound is a lethargic and sleepy EXTREMITIES: There is no peripheral edema. No clubbing, no cyanosis. Peripheral pulses are intact. - Labs CBC & Chem 7: 09/24/20 05:32 09/24/20 05:32 Labs: Abnormal Lab Results - Last 24 Hours (Table) 09/23/20 09/24/20 09/24/20 Range/Units 19:01 05:32 05:32 WBC 11.0 H (3.8-10.6) k/uL Plt Count 135 L (150-450) k/uL Neutrophils # 9.7 H (1.3-7.7) k/uL Sodium 154 H (135-145) mmol/L Chloride 116 H (96-109) mmol/L BUN/Creatinine Ratio 34.29 H (12.00-20.00) Ratio Glucose 154 H (70-110) mg/dL POC Glucose (mg/dL) 161 H (75-99) mg/dL AST 40 H (13-35) U/L Total Protein 5.3 L (6.2-8.2) g/dL Albumin 3.10 L (3.80-4.90) g/dL Albumin/Globulin Ratio 1.41 L (1.60-3.17) g/dL Microbiology - Last 24 Hours (Table) 09/22/20 11:34 Blood Culture Gram Stain - Preliminary Blood Blood Culture - Preliminary Coagulase Negative Staph 09/22/20 11:40 Urine Culture - Preliminary Urine,Voided Group D Enterococcus 09/22/20 11:34 Blood Culture - Final Blood Assessment and Plan Plan: 1 Acute hypoxic respiratory failure secondary to CoVID 19 pneumonitis, currently on 9 L of oxygen by nasal cannula and the chest x-ray shows worsening of the bilateral pulmonary airspace disease/infiltrates. 2 Elevated d-dimer secondary to above 3 Hypernatremia, 4 Urinary tract infection, suspected, awaiting further cultures 5 Severe dementia 6 Hypertension 7 Hyperlipidemia 8 History of depression 9 Poor overall functional performance based on the above-mentioned multiple com orbidities Plan: switched IV fluids to D5 water at 100 mL an hour As IV Rocephin 1 g every 24 hours Titrate O2 to maintain O2 saturations greater than 88%Maryjane currently on 6 L of oxygen by nasal cannula continue Lovenox, Decadron, Pepcid, vitamin C, vitamin D, zinc Condition is guarded/poor She is a DO NOT RESUSCITATE/DO NOT INTUBATE CODE STATUS we'll need to further establish CODE STATUS with the family and goal of care, and consider hospice. We will continue to follow and make further recommendations based on her clinical status
[2020-09-24 13:27] VITALS: BMI 21.7
[2020-09-24] MEDS: DEXTROSE 5% IN WATER 1,000 ML IV SCH (14:32)
[2020-09-24] MEDS: ATORVASTATIN 10 MG TAB PO SCH (21:42)
[2020-09-24] MEDS: MELATONIN 5 MG TABLET PO SCH (21:42)
--- NOTE | 2020-09-24 23:43 | P.PN ---
Progress Note - Text Progress Note Date: 09/24/20 Chief Complaint: Weakness History of presenting complaint: This is a 85-year-old patient of visiting physicians Dr. Davenport. Known chronic stable medical conditions include dementia, hypertension, hyperlipidemia. Patient presented to the ER. From [place] coming here for weakness altered mental status hypoxia. Patient has been declining over several days unable to take anything by mouth and vomiting. Patient's had multiple recent UTIs. No reported fever. Patient's pulse ox with daughter the 80s. Patient is a DO NOT RESUSCITATE. In the ER patient is awake but somewhat delirium moving ahead about. Has a Gómez catheter. Moving all her limbs. Not able to get any history from the patient today--still remains rather confused not communicating. No oral intake.. Review of systems: Cannot be obtained as patient is delirious Active Medications Acetaminophen (Acetaminophen Tab 325 Mg Tab) 650 mg PO Q6HR PRN PRN Reason: Mild Pain or Fever > 100.5 Hydrocodone Bitart/Acetaminophen (Hydrocodone/Apap 5-325mg 1 Each Tab) 1 each PO QID PRN PRN Reason: Pain Last Admin: 09/23/20 11:21 Dose: 1 each Documented by: Amlodipine Besylate (Amlodipine 2.5 Mg Tab) 2.5 mg PO DAILY@0800 [facility] Last Admin: 09/24/20 11:49 Dose: Not Given Documented by: Ascorbic Acid (Ascorbic Acid 500 Mg Tab) 1,000 mg PO DAILY [facility] Last Admin: 09/24/20 11:51 Dose: Not Given Documented by: Aspirin (Aspirin 81 Mg) 81 mg PO DAILY@1200 [facility] Last Admin: 09/24/20 12:33 Dose: Not Given Documented by: Atorvastatin Calcium (Atorvastatin 10 Mg Tab) 10 mg PO HS@2000 [facility] Last Admin: 09/24/20 21:42 Dose: Not Given Documented by: Cholecalciferol (Cholecalciferol 400 Unit Tab) 400 unit PO DAILY [facility] Last Admin: 09/24/20 11:51 Dose: Not Given Documented by: Citalopram Hydrobromide (Citalopram Hydrobromide 20 Mg Tab) 20 mg PO DAILY@0800 [facility] Last Admin: 09/24/20 11:49 Dose: Not Given Documented by: Clonidine HCl (Clonidine 0.1 Mg/24hr Patch) 1 patch TRANSDERM Q7D [facility] Last Admin: 09/22/20 21:03 Dose: 1 patch Documented by: Donepezil HCl (Donepezil 10 Mg Tab) 10 mg PO BID@799,1999 [facility] Last Admin: 09/24/20 21:42 Dose: Not Given Documented by: Enoxaparin Sodium (Enoxaparin 60 Mg/0.6 Ml Syringe) 60 mg SQ Q12HR [facility] Last Admin: 09/24/20 21:43 Dose: 60 mg Documented by: Ergocalciferol (Ergocalciferol 50,000 Unit Cap) 50,000 unit PO FR@0800 [facility] Dextrose/Sodium Chloride (Dextrose 5%-1/2ns Iv Soln) 1,000 mls @ 125 mls/hr IV .Q8H [facility] Last Admin: 09/24/20 14:30 Dose: Not Given Documented by: Ceftriaxone Sodium 1 gm/ (Sodium Chloride) 50 mls @ 100 mls/hr IVPB Q24HR [facility] Last Admin: 09/24/20 14:32 Dose: 100 mls/hr Documented by: Dextrose/Water (Dextrose 5%-Water Iv Soln) 1,000 mls @ 100 mls/hr IV .Q10H [facility] Last Admin: 09/24/20 14:32 Dose: 100 mls/hr Documented by: Magnesium Hydroxide (Magnesium Hydroxide 2,400 Mg/10 Ml Cup) 1,200 mg PO DAILY@0800 [facility] Last Admin: 09/24/20 11:50 Dose: Not Given Documented by: Melatonin (Melatonin 5 Mg Tablet) 5 mg PO HS@1999 [facility] Last Admin: 09/24/20 21:42 Dose: Not Given Documented by: Memantine (Memantine 10 Mg Tab) 10 mg PO DAILY@0800 [facility] Last Admin: 09/24/20 11:50 Dose: Not Given Documented by: Memantine (Memantine 5 Mg Tab) 5 mg PO DAILY@0800 [facility] Last Admin: 09/24/20 11:50 Dose: Not Given Documented by: Methylprednisolone Sodium Succinate (Methylprednisolone Sod Succi 40 Mg/Ml 1 Ml Vial) 40 mg IV Q8HR [facility] Last Admin: 09/24/20 14:32 Dose: 40 mg Documented by: Multivitamins/Minerals (Vit A,C & F-Deynaz-Mrzjixvy 1 Each Tab) 1 each PO DAILY@1200 [facility] Last Admin: 09/24/20 12:33 Dose: Not Given Documented by: Naloxone HCl (Naloxone 0.4 Mg/Ml 1 Ml Vial) 0.2 mg IV Q2M PRN PRN Reason: Opioid Reversal Ondansetron HCl (Ondansetron 4 Mg/2 Ml Vial) 4 mg IVP Q8HR PRN PRN Reason: Nausea And Vomiting Quetiapine Fumarate (Quetiapine 25 Mg Tab) 25 mg PO BID@0800,1999 [facility] Last Admin: 09/24/20 21:42 Dose: Not Given Documented by: Zinc Sulfate (Zinc Sulfate 220 Mg Cap) 220 mg PO DAILY [facility] Last Admin: 09/24/20 11:51 Dose: Not Given Documented by: Physical examination: VITAL SIGNS: 98.9, 92, 19, 152/91, 91% on 9 L GENERAL: , loss of subcutaneous fat and muscle mass, delirious. EYES: Pupils equal. Conjunctiva normal. HEENT: [External appearance of nose and ears normal, oral cavity-less dry mucous membranes NECK: JVD unable to assess masses not palpable. HEART: First and second heart sounds are normal; no edema. LUNGS: Respiratory rate increased; decreased breath sounds. ABDOMEN: Soft, nontender, liver spleen not palpable, no masses palpable. PSYCH: [Patient is delirious l. NEUROLOGICAL: [Cranial nerves grossly intact; no facial asymmetry, moving all 4 limbs INVESTIGATIONS, reviewed in the clinical context: October 04: White count 11 hemoglobin 14 sodium 154 potassium 3.5 creatinine 0 .7 White count 6 hemoglobin 16.5 platelets 111 sodium 153 potassium 3.9 bun 45 creatinine 0.91 D-dimer 3.21 troponin I 0.027 CRP 78.4 UA positive for blood Coronavirus P/Cr-detected EKG tracing personally reviewed by me-normal sinus rhythm nonspecific ST segment changes Chest x-ray film personally reviewed by me-bilateral scattered infiltrates Assessment: -Bilateral pneumonia from COVID 19-slow to respond -Acute hypoxic respiratory failure from above-on 6 L -Acute metabolic encephalopathy and acute delirium from above-slow to respond -Hypernatremia, for free water deficit from decreased oral intake, with hyperchloremia-not improving -Metabolic alkalosis from volume contraction -Severe clinical dehydration -Mild protein calorie malnutrition from decreased oral intake. Patient has decreased muscle mass -Alzheimer's dementia -Hyperlipidemia -Essential hypertension -Anxiety depression otherwise specified -DO NOT RESUSCITATE Plan: Change fluids to D5W 100 mL an hour. We'll watch for 24 hours. If no improvement would consider hospice will talk to the . Other medications to continue.
[2020-09-25] MEDS: methylPREDNISolone SOD SUCCI 40 MG/ML 1 ML VIAL IV SCH ×4 (00:57→23:51)
[2020-09-25] MEDS: DEXTROSE 5% IN WATER 1,000 ML IV SCH ×3 (00:58→12:15)
[2020-09-25] MEDS: DEXTROSE 5%-0.45% NACL 1,000 ML IV SCH ×4 (00:59→23:51)
[2020-09-25] MEDS: amLODIPine 2.5 MG TAB PO SCH (08:43)
[2020-09-25] MEDS: CITALOPRAM HYDROBROMIDE 20 MG TAB PO SCH (08:43)
[2020-09-25] MEDS: MEMANTINE 10 MG TAB PO SCH (08:43)
[2020-09-25] MEDS: MAGNESIUM HYDROXIDE 2,400 MG/10 ML CUP PO SCH (08:43)
[2020-09-25] MEDS: MEMANTINE 5 MG TAB PO SCH (08:43)
[2020-09-25] MEDS: DONEPEZIL 10 MG TAB PO SCH ×2 (08:43→19:44)
[2020-09-25] MEDS: QUEtiapine 25 MG TAB PO SCH ×2 (08:44→19:44)
[2020-09-25] MEDS: ASCORBIC ACID 500 MG TAB PO SCH (08:44)
[2020-09-25] MEDS: CHOLECALCIFEROL 400 UNIT TAB PO SCH (09:52)
[2020-09-25] MEDS: ZINC SULFATE 220 MG CAP PO SCH (11:14)
[2020-09-25] MEDS: VIT A,C & E-LUTEIN-MINERALS 1 EACH TAB PO SCH (11:14)
[2020-09-25] MEDS: ASPIRIN 81 MG PO SCH (11:14)
[2020-09-25] MEDS: ENOXAPARIN 60 MG/0.6 ML SYRINGE SQ SCH ×2 (11:22→19:47)
--- NOTE | 2020-09-25 12:12 | P.PN ---
Subjective Progress Note Date: 09/25/20 On today's evaluation of 09/23/2020, the patient is more lethargic, she is moaning, she is not holding any conversation. Oxidation that'll worsen the patient is currently on 6 L of oxygen by nasal cannula. She is nonverbal. Her chest x-ray showing patchy bilateral pulmonary infiltrates consistent with over 19 related pneumonia. This patient has severe dementia and she has a DNR/DNI CODE STATUS. She is currently on Decadron. She is also on Lovenox. No new labs are available from today focused on his elevated suspecting an underlying UTI. She has a Gómez catheter in place. IV fluids are running in the form of D5 half-normal at the rate of 1 25 mL an hour. Her CRP was 78, CPK was 22, lactic acid level was at 1.5 On today's evaluation, the patient is being seen on 09/24/2020 for follow-up regarding her COVID pneumonia. The patient had a follow-up chest x-ray that showed worsening bilateral pulmonary infiltrates and the patient is currently on 9 L of oxygen by nasal cannula saturation being in the low 90s. The chest x-ray showing bilateral airspace disease and has become more intense and conspicuous. She is having a low-grade fever of 99.9. She is quite lethargic. Based on an swering question. His sodium level is up to 154 and the patient is currently on normal saline infusion rate of 125 mL an hour. This is to be adjusted and replaced with D5 water. Her urine culture was positive for group D enterococcus in the blood culture was positive for coagulase-negative staph, probably a contaminant. on 09/25/2020 the patient is being seen for a follow-up. The patient is unresponsive. Her sodium level is on bronchodilators is up to 154. Vaccinations gotten worse and the patient is currently on 100% nonrebreather facemask. She is unresponsive to any verbal stimulation. He is not also respond to painful stimulation. She was confirmed to have Enterococcus faecalis in her urine and the patient is currently on IV Rocephin. The patient's also has covid 19 pneumonia. He was worsening in the bilateral pulmonary infiltrates as noted on yesterday's chest x-ray. The patient remains on Lovenox 60 mg every 12 hours. I'm not sure she is going to be able to take any other oral medication at this point in time. Objective - Vital Signs Vital signs: Vital Signs Temp 97.8 F 09/25/20 04:53 Pulse 75 09/25/20 08:40 Resp 20 09/25/20 08:40 BP 148/87 09/25/20 04:53 Pulse Ox 90 L 09/25/20 04:53 Intake & Output 09/24/20 09/25/20 09/25/20 18:59 06:59 18:59 Intake Total 900 Balance 900 Weight 64.864 kg Intake: Intake, IV Titration 900 Amount Dextrose 5% in Water 1, 900 000 ml @ 100 mls/hr IV . Q10H [facility] Rx#:[id number] Other: Voiding Method Indwelling Catheter Indwelling Catheter Indwelling Catheter - Exam GENERAL EXAM: Alert, frail, nonverbal, cachectic 85-year-old female patient, the patient is on 100% nonrebreather facemask. The patient is tachypneic. The patient is unresponsive. She is not following any commands and she is not responding to any verbal stimulation. She is extremely obtunded HEAD: Normocephalic. EYES: Normal reaction of pupils, equal size. NOSE: Clear with pink turbinates. THROAT: Dry mucous membranes. No erythema or exudates. NECK: No masses, no JVD. CHEST: No chest wall deformity. LUNGS: Equal air entry with lateral scattered rhonchi. CVS: S1 and S2 normal with no audible murmur, regular rhythm. ABDOMEN: No hepatosplenomegaly, normal bowel sounds, no guarding or rigidity. SPINE: Kyphoscoliosis SKIN: No rashes CENTRAL NERVOUS SYSTEM: Severe dementia. Tone is normal in all 4 extremities.the patient is very much sound is obtunded and nonverbal. EXTREMITIES: There is no peripheral edema. No clubbing, no cyanosis. Peripheral pulses are intact. - Labs CBC & Chem 7: 09/24/20 05:32 09/24/20 05:32 Labs: Microbiology - Last 24 Hours (Table) 09/22/20 11:40 Urine Culture - Final Urine,Voided Enterococcus faecalis 09/22/20 11:34 Blood Culture Gram Stain - Preliminary Blood Blood Culture - Preliminary Coagulase Negative Staph Assessment and Plan Plan: 1 Acute hypoxic respiratory failure secondary to CoVID 19 pneumonitis, currently 100% nonrebreather facemask with ongoing respiratory failure, hypoxic failure that has gotten worse as the patient's oxygen requirements have progressively worse over the past 24-48 hours. She is currently completely unresponsive and severely obtunded. 2 Elevated d-dimer secondary to above 3 Hypernatremia,awaiting labs from today 4 Urinary tract infection, suspected, awaiting further cultures 5 Severe dementia 6 Hypertension 7 Hyperlipidemia 8 History of depression 9 Poor overall functional performance based on the above-mentioned multiple comorbidities Plan: D5 water at 150 mL an hour continue IV Rocephin 1 g every 24 hours keep the patient 100% nonrebreather facemask continue Lovenox, Decadron,the patient is unable to take the rest of the oral medications. Condition is guarded/poor She is a DO NOT RESUSCITATE/DO NOT INTUBATE CODE STATUS we'll need to further establish CODE STATUS with the family and goal of care, and consider hospice. We will continue to follow and make further recommendations based on her clini soco status
--- NOTE | 2020-09-25 19:22 | CDI ---
Documentation Clarification Form Date: 09/25/2020 06:59:45 PM From: Carley Burns RN CCDS Admit Date: 09/22/2020 01:16:00 PM Patient Name: Dede Ritter Visit Number: [id number] Discharge Date: ATTENTION: The Clinical Documentation Specialists (CDI) and [facility] Coding Staff appreciate your assistance in clarifying documentation. Please respond to the clarification below the line at the bottom and electronically sign. The CDI & [facility] Coding staff will review the response and follow-up if needed. Please note: Queries are made part of the Legal Health Record. If you have any questions, please contact the author of this message via ITS. Dr. Mina Kennedy Stage 2 Pressure ulcer is documented in the Nursing assessment 09/24 History/Risk Factors: 85-year-old female presents to the ED from [facility] for evaluation of Altered Mental status and Hypoxia. Medical History: Dementia, HTN, HLD Clinical Indicators: Location: Sacrum Wound description: Length/cm 0.5; Width/cm 0.5; Distinct Margins; Leonora-wound color Erythema; Treatment: Optifoam dressing, Turn 2 Q Hours; Elements for accurate and compliant documentation of an ulcer: *The location/laterality of the ulcer *Etiology (decubitus/pressure, diabetic, PVD) *Stage I-IV, Unstageable, Suspected Deep Tissue Injury (To the deepest stage) *If the ulcer was present at admission (POA) or occurred after admission In your professional opinion, can you please clarify the diagnosis, location, laterality and whether present on admission (POA): Stage 1 Pressure/Decubitus Ulcer (intact skin, non-blanching redness of local area) Stage 2 Pressure/Decubitus Ulcer (Partial thickness, loss of dermis, pink wound bed) Other condition, please specify Unable to determine Please indicate etiology of pressure ulcer (if known). (Last Revision: July 2017) Stage II pressure ulcer MTDD
[2020-09-25] MEDS: MELATONIN 5 MG TABLET PO SCH (19:44)
[2020-09-25] MEDS: ATORVASTATIN 10 MG TAB PO SCH (19:44)
[2020-09-26] MEDS: DEXTROSE 5% IN WATER 1,000 ML IV SCH ×2 (06:50→15:03)
[2020-09-26] MEDS: amLODIPine 2.5 MG TAB PO SCH (06:57)
[2020-09-26] MEDS: CITALOPRAM HYDROBROMIDE 20 MG TAB PO SCH (06:57)
[2020-09-26] MEDS: MEMANTINE 10 MG TAB PO SCH (06:58)
[2020-09-26] MEDS: QUEtiapine 25 MG TAB PO SCH (06:58)
[2020-09-26] MEDS: MAGNESIUM HYDROXIDE 2,400 MG/10 ML CUP PO SCH (06:58)
[2020-09-26] MEDS: MEMANTINE 5 MG TAB PO SCH (06:58)
[2020-09-26] MEDS: ASCORBIC ACID 500 MG TAB PO SCH (06:58)
[2020-09-26] MEDS: DONEPEZIL 10 MG TAB PO SCH (06:58)
[2020-09-26] MEDS: CHOLECALCIFEROL 400 UNIT TAB PO SCH (06:58)
[2020-09-26] MEDS: ZINC SULFATE 220 MG CAP PO SCH (06:59)
[2020-09-26] MEDS: DEXTROSE 5%-0.45% NACL 1,000 ML IV SCH ×2 (09:44→15:03)
[2020-09-26] MEDS: methylPREDNISolone SOD SUCCI 40 MG/ML 1 ML VIAL IV SCH ×2 (09:45→16:28)
[2020-09-26] MEDS: ENOXAPARIN 60 MG/0.6 ML SYRINGE SQ SCH (09:45)
[2020-09-26] MEDS: ASPIRIN 81 MG PO SCH (11:20)
[2020-09-26] MEDS: VIT A,C & E-LUTEIN-MINERALS 1 EACH TAB PO SCH (11:21)
--- NOTE | 2020-09-26 11:23 | P.PN ---
Progress Note - Text Progress Note Date: 09/25/20 Chief Complaint: Weakness History of presenting complaint: This is a 85-year-old patient of visiting physicians Dr. Davenport. Known chronic stable medical conditions include dementia, hypertension, hyperlipidemia. Patient presented to the ER. From [facility] coming here for weakness altered mental status hypoxia. Patient has been declining over several days unable to take anything by mouth and vomiting. Patient's had multiple recent UTIs. No reported fever. Patient's pulse ox with daughter the 80s. Patient is a DO NOT RESUSCITATE. In the ER patient is awake but somewhat delirium moving ahead about. Has a Gómez catheter. Moving all her limbs. Not able to get any history from the patient today--still remains rather confused not communicating. No oral intake.. Review of systems: Cannot be obtained as patient is delirious Current medications reviewed in today's electronic records Physical examination: VITAL SIGNS: 97.8, 76, 22, 137.97, 88% on 15 L GENERAL: , loss of subcutaneous fat and muscle mass, delirious. EYES: Pupils equal. Conjunctiva normal. HEENT: [External appearance of nose and ears normal, oral cavity-less dry mucous membranes NECK: JVD unable to assess masses not palpable. HEART: First and second heart sounds are normal; no edema. LUNGS: Respiratory rate increased; decreased breath sounds. ABDOMEN: Soft, nontender, liver spleen not palpable, no masses palpable. PSYCH: [Patient is delirious l. NEUROLOGICAL: [Cranial nerves grossly intact; no facial asymmetry, moving all 4 limbs INVESTIGATIONS, reviewed in the clinical context: October 04: White count 11 hemoglobin 14 sodium 154 potassium 3.5 creatinine 0.7 White count 6 hemoglobin 16.5 platelets 111 sodium 153 potassium 3.9 bun 45 creatinine 0.91 D-dimer 3.21 troponin I 0.027 CRP 78.4 UA positive for blood Coronavirus P/Cr-detected EKG tracing personally reviewed by me-normal sinus rhythm nonspecific ST segment changes Chest x-ray film personally reviewed by me-bilateral scattered infiltrates Assessment: -Bilateral pneumonia from COVID 19-slow to respond -Acute hypoxic respiratory failure from worsening-on 15 L -Acute metabolic encephalopathy and acute delirium from above-slow to respond -Hypernatremia, for free water deficit from decreased oral intake, with hyperchloremia-not improving -Metabolic alkalosis from volume contraction -Severe clinical dehydration -Mild protein calorie malnutrition from decreased oral intake. Patient has de creased muscle mass -Alzheimer's dementia -Hyperlipidemia -Essential hypertension -Anxiety depression otherwise specified -DO NOT RESUSCITATE Plan: Patient continues to do poorly. Oxygen requirement has gone up. Family is looking into hospice. Coronary return to his own placed tomorrow.
[2020-09-26 12:03] VITALS: BP 146/86; PULSE 69; RESP 17; TEMP 98.2
--- NOTE | 2020-09-26 14:16 | CDI ---
Documentation Clarification Form Date: 09/26/2020 01:55:07 PM From: Carley Burns RN CCDS Admit Date: 09/22/2020 01:16:00 PM Patient Name: Dede Ritter Visit Number: [id number] Discharge Date: ATTENTION: The Clinical Documentation Specialists (CDI) and [facility] Coding Staff appreciate your assistance in clarifying documentation. Please respond to the clarification below the line at the bottom and electronically sign. The CDI & [facility] Coding staff will review the response and follow-up if needed. Please note: Queries are made part of the Legal Health Record. If you have any questions, please contact the author of this message via ITS. Dr. Mina Nicole UTI, suspected is documented in Pulmonary progress notes 09/23 through 09/25 History/Risk Factors: 85-year-old female presents to the ED from [facility] for weakness, altered mental status and hypoxia. Medical History: Alzheimers Dementia, HTN, HLD Clinical Indicators: Admitting Diagnosis Bilateral Pneumonia from COVID 19; Acute Hypoxic Respiratory Failure 09/22 H&P Has a Constantino catheter. Vital Signs: WBC 09/22: 6.0 Urinalysis 09/22: Protein 2+; Leukocyte Esterase Trace, Wbc 17; Hyaline casts 2; Urine Culture 09/24: Enterococcus faecalis Treatment Antibiotics: 09/22 0.9ns 1L Bolus 09/24 Rocephin Ivpb Q24Hr; Please document the condition that these clinical indicators signify, whether Present on Admission, and cause if known: UTI due to constantino catheter UTI UTI Ruled out Contaminated specimen Other, please specify Unable to determine Present on Admission: Yes No (Last Revision: July 2017) No UTI. Colonization MTDD
--- NOTE | 2020-09-26 23:37 | P.DS ---
Providers Date of admission: 09/22/20 13:16 Expected date of discharge: 09/26/20 Attending physician: Mina Nicole Consults: 09/22/20 13:17 Consult Physician Urgent Consulting Provider: Dorian Vaughn Consult Reason/Comments: covid Do you want consulting provider notified?: Yes [facility]: Chief Complaint: Weakness History of presenting complaint: This is a 85-year-old patient of visiting physicians Dr. Davenport. Known chronic stable medical conditions include dementia, hypertension, hyperlipidemia. Jayla ent presented to the ER. From [place] coming here for weakness altered mental status hypoxia. Patient has been declining over several days unable to take anything by mouth and vomiting. Patient's had multiple recent UTIs. No reported fever. Patient's pulse ox with daughter the 80s. Patient is a DO NOT RESUSCITATE. In the ER patient is awake but somewhat delirium moving ahead about. Has a Gómez catheter. Moving all her limbs. Not able to get any history from the patient today--continuous or do poorly. Spoke to patient's on the phone. Patient be discharged to the assisted living [facility]. Patient remains to be delirious. Discussion and discharge planning more than 35 minutes Molecular Biologist: Dr. Mei from pulmonary Physical examination: VITAL SIGNS: 98.2, 69, 17, 1 4696, 92% on 15 L GENERAL: , loss of subcutaneous fat and muscle mass, delirious. EYES: Pupils equal. Conjunctiva normal. HEENT: [External appearance of nose and ears normal, oral cavity-less dry mucous membranes NECK: JVD unable to assess masses not palpable. HEART: First and second heart sounds are normal; no edema. LUNGS: Respiratory rate increased; decreased breath sounds. ABDOMEN: Soft, nontender, liver spleen not palpable, no masses palpable. PSYCH: Patient is delirious . NEUROLOGICAL: [Cranial nerves grossly intact; no facial asymmetry, moving all 4 limbs INVESTIGATIONS, reviewed in the clinical context: September 24: White count 11 hemoglobin 14 sodium 154 potassium 3.5 creatinine 0.7 White count 6 hemoglobin 16.5 platelets 111 sodium 153 potassium 3.9 bun 45 creatinine 0.91 D-dimer 3.21 troponin I 0.027 CRP 78.4 UA positive for blood Coronavirus P/Cr-detected EKG tracing personally reviewed by me-normal sinus rhythm nonspecific ST segment changes Chest x-ray film personally reviewed by me-bilateral scattered infiltrates Assessment: -Bilateral pneumonia from COVID 19-slow to respond -Acute hypoxic respiratory failure from worsening-on 15 L -Acute metabolic encephalopathy and acute delirium from above-slow to respond -Hypernatremia, for free water deficit from decreased oral intake, with hyperchloremia-not improving -Metabolic alkalosis from volume contraction -Severe clinical dehydration -Mild protein calorie malnutrition from decreased oral intake. Patient has decreased muscle mass -Alzheimer's dementia -Hyperlipidemia -Essential hypertension -Anxiety depression otherwise specified -DO NOT RESUSCITATE Disposition: Assisted living with hospice Patient Condition at Discharge: Poor Plan - Discharge Summary New Discharge Prescriptions: Discontinued Donepezil [Aricept] 10 mg PO BID@0800,2000 amLODIPine [Norvasc] 2.5 mg PO DAILY@0800 Simvastatin [Zocor] 20 mg PO HS@1999 Aspirin EC [Ecotrin Low Dose] 81 mg PO DAILY@1200 Vit C/E/Zn/Coppr/Lutein/Zeaxan [Preservision Areds 2 Softgel] 1 cap PO DAILY@1200 Memantine HCl [Namenda Xr] 21 mg PO DAILY@0800 Magnesium Hydroxide [Milk of Magnesia] 1,200 mg PO DAILY@0800 Citalopram Hydrobromide [CeleXA] 20 mg PO DAILY@0800 Acetaminophen [Tylenol 8 Hour] 1,300 mg PO TID@0800,1400,1999 PRN PRN Reason: Pain Ergocalciferol [Vitamin D2 (DRISDOL)] 50,000 unit PO FR@0800 Melatonin 5 mg PO HS@2000 Metoprolol Succinate (ER) [Toprol XL] 12.5 mg PO DAILY@0800 QUEtiapine [SEROquel] 25 mg PO BID@0800,1999 Ciprofloxacin HCl 500 mg PO BID@0800,1999 HYDROcodone/APAP 5-325MG [[place] 5-325] 1 tab PO QID PRN PRN Reason: Pain Follow up Appointment(s)/Referral(s): Matthew Davenport MD [Primary Care Provider] - 1-2 days (Please call office to set up hospital follow up) Activity/Diet/Wound Care/Special Instructions: To [facility] home. Discharge Disposition: HOME WITH HOSPICE
[2020-09-27] MEDS ORDERED: ERGOCALCIFEROL 50,000 UNIT CAP PO SCH (08:00)
== END 2020-09-26 20:28 | disposition hospice, home (50) | DRG 177 ==
LOC: EC 11:07 → 6NMEDSUR 13:16
PROVIDERS: ADMIT Hospitalist; ATTEND Hospitalist
DX: U07.1 COVID-19 (principal); J12.89 Other viral pneumonia; J96.01 Acute respiratory failure with hypoxia; G93.41 Metabolic encephalopathy; E44.1 Mild protein-calorie malnutrition; E87.0 Hyperosmolality and hypernatremia; E87.3 Alkalosis; E87.2 Acidosis; L89.152 Pressure ulcer of sacral region, stage 2; G30.9 Alzheimer's disease, unspecified; Z66 Do not resuscitate; F41.8 Other specified anxiety disorders; F02.80 Dementia in other diseases classified elsewhere, unspecified severity, without behavioral disturbance, psychotic disturbance, mood disturbance, and anxiety; Z68.21 Body mass index [BMI] 21.0-21.9, adult; E78.5 Hyperlipidemia, unspecified; E86.0 Dehydration; Z51.5 Encounter for palliative care; E87.8 Other disorders of electrolyte and fluid balance, not elsewhere classified; I10 Essential (primary) hypertension; Z87.440 Personal history of urinary (tract) infections; R31.9 Hematuria, unspecified; Z79.82 Long term (current) use of aspirin; Z79.899 Other long term (current) drug therapy; Z90.710 Acquired absence of both cervix and uterus; R79.1 Abnormal coagulation profile
CPT/HCPCS: 36415; 71045; 80053; 81001; 82550; 83605; 83735; 84145; 84484; 85025; 85379; 85610; 85730; 86140; 87040; 87077; 87086; 87186; 87635; 93005; 96361; 96372; 96374; 96375; 96376; 99285